=== PATIENT | female | born 1960 | race Caucasian/White ===

== ENCOUNTER 2023-01-19 06:08 | Outpatient (RCR) | payer OTHER, SELFPAY | END 2023-01-19 13:53 | disposition home or self-care (01) | LOC: CR 06:08 | DX: I25.10 Atherosclerotic heart disease of native coronary artery without angina pectoris (principal) | CPT/HCPCS: 93798 ==

== ENCOUNTER 2023-11-12 10:15 | Outpatient (OUT) | payer OTHER, SELFPAY ==
--- OUTSIDE RECORDS SUMMARY | 2023-11-12 10:18 | XMS_ITS | CCD ---
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 Role Phone MD Lorena Mcknight Primary Care Provider MD Jade Vidal Admit Provider [phone] DO Jaylene Aguilar Attending Provider [phone] Kadeem Harrell II Attending Unav LAINA Cobian Attending Unavailable LAINA Lynch Referring Unavailable Lorena Mcknight Primary Care Unavailab Lorena Marmolejo Unavailable Unavailable Unavailable Siri Tabares Consulting Unavailable Jaylene Aguilar Attending Unavailable Lorena Mcknight Primary Care Unavailable Jade Vidal Admitting Unavailable Ladan Khoury Consulting Unavailable Lee Herr Consulting Unavailable Kadeem Harrell Consulting Unavail able Angella Sorto Consulting Unavailable Sterling Hebert Consulting Unavailab Denita Valencia Consulting Unavailable Carmelina Hoffman Consulting Unavailable Medhat Winston Consulting Unavailab Nancy Castañeda Consulting Unavailable Umm Dozier Consulting Unavailable Martha Wagner Consulting Unavailable AISLINN, DR CARRILLO Primary Care Unavailable BRENDEN, DR MAICOL Gonzales Admitting Unavailable BRENDEN, DR MAICOL Gonzales Attending Unavailable BRENDEN, DR MAICOL Gonzales Consulting Unavailable MAYRA RODRIGUEZ Consulting Unavailable EVER SHELL Consulting Unavailable AISLINN, DR CARRILLO Primary Care Unavailable PILAR ., DR SANTA Navarro Admitting Unavailable PILAR ., DR SANTA Navarro Attending Unavailable PILAR ., DR SANTA Navraro Consulting Unavailable JEN, DR TED Rose Consulting Unavailable MARIE TANG Consulting Unavailable ZELDA TEE Consulting Unavailable ASIF Upton, DR RAFITA Sykes Attending Unavaila rosales MCKNIGHT, DR CARRILLO Primary Care Unavailable DENITA EDGAR Admitting Unavailable AISLINN, DR CARRILLO Consulting Unavailable DENITA EDGAR Consulting Unavailable AISLINN, DR CARRILLO Primary Care Unavailable PILAR ., DR SANTA Navarro Admitting Unavailable QUEZADA ., DR SANTA Navarro Attending Unavailable QUEZADA ., DR SANTA Navarro Consulting Unavailable HAY ., DR BRIONES Consulting Unavailable GELBART, JAYLENE Consulting Unavailable SISTER, SUSIE Consulting Unavailable AISLINN, DR CARRILLO Primary Care Unavailable PAY ., DR GRACIA Admitting Unavailable PAY ., DR GRACIA Attending Unavailable JEN, DR ETD Rose Consulting Unavailable PAY ., DR GRACIA Consulting Unavailable Lorena Mcknight MD Primary Care Provider KADEEM HARRELL Attending Unavailable AISLINN, LORENA LARIOS Primary Care Unavailab Lorena Marmolejo MD Primary Care Provider [phone] Medications Current Medications Medication Drug Class(es) Dates Sig (Normalized) Sig (Original) 8 hr acetaminophen 650 mg extended release oral tablet (3 sources) take 1 tablet by mouth every four hours as needed for pain acetaminophen (TYLENOL ARTHRITIS) 650 mg 8 hr tablet Take 1 tablet (650 mg total) by mouth every 4 (four) hours as needed for pain. 0 Active aspirin 81 mg delayed release oral tablet (4 sources) Platelet Aggregation Inhibitor, Nonsteroidal Anti-inflammatory Drug Start: 08-08-2022 take 81 mg by mouth once daily Aspirin Active 81 MG PO Daily 0 August 08, 2022 12:00am atorvastatin 20 mg oral tablet (8 sources) HMG-CoA Reductase Inhibitor Start: 08-08-2022 End: 07-16-2023 take 1 tablet by mouth once daily atorvastatin (LIPITOR) 20 mg tablet Take 1 tablet (20 mg total) by mouth nightly. 0 08/08/2022 Active hydroCHLOROthiazide 25 mg / losartan potassium 100 mg oral tablet (7 sources) Thiazide Diuretic, Angiotensin 2 Receptor Apoorva Start: 05-21-2023 take 1 tablet by mouth once in the morning losartan-hydroCHL OROthiazide (HYZAAR) 100-25 mg per tablet TAKE 1 TABLET BY MOUTH IN THE MORNING 90 tablet 1 05/21/2023 Active Start: 08-04-2022 take 1 tablet by leonor th once daily Losartan-Hydrochlorothiazide Active 1 TA B PO Daily August 04, 2022 12:00am hydrOXYzine hydrochloride 25 mg oral tablet (8 sources) Antihistamine Start: 08-03-2023 End: 10-24-2023 take 1-2 tablets by mouth every eight hours as needed for anxiety hydrOXYzine (ATARAX) 25 mg tablet TAKE 1-2 TABLET(25 MG) BY MOUTH EVERY 8 HOURS NEEDED FOR ANXIETY 90 tablet 0 10/24/2023 Active Start: 08-04-2022 take 25 mg by mouth every six hours Hydroxyzine Hcl Active 25 MG PO Every 6 hours August 04, 2022 12:00am take 1 tablet by leonor th four times daily hydrOXYzine HCL (Atarax) 25 mg tablet Take 1 tablet (25 mg) by mouth 4 times a day. 0 Active metoprolol tartrate 25 mg oral tablet (8 sources) beta-Adrenergic Apoorva Start: 09-17-2023 take 1 tablet by mouth in the morning, then take 1 tablet by mouth at bedtime metoprolol tartrate (LOPRESSOR) 25 mg tablet TAKE 1 TABLET BY MOUTH IN THE MORNING AND 1 BEFORE BEDTIME 180 tablet 3 09/17/2023 Active Start: 08-04-2022 End: 09-17-2023 take 1 tablet by mouth in the morning, then take 1 tablet by mouth at bedtime metoprolol tartrate (LOPRESSOR) 25 mg tablet Take 1 tablet (25 mg total) by mouth in the morning and 1 tablet (25 mg total) before bedtime. 180 tablet 0 05/14/2023 09/17/2023 Discontinued nitroglycerin 0.4 mg sublingual tablet (7 sources) Nitrate Vasodilator Start: 08-08-2022 nitroglyce rin (NITROSTAT) 0.4 MG SL tablet DISSOLVE 1 TABLET UNDER THE TONGUE EVERY 5 MINUTES NEEDED FOR CHEST PAIN DO NOT EXCEED 3 DOSES PER EPISODE 0 08/08/2022 Active Start: 08-08-2022 Nitroglycerin Active 0.4 MG SUBLINGUAL Q5M 25 August 08, 2022 12:00am do not exceed 3 doses per episode prasugrel 10 mg oral tablet (8 sources) P2Y12 Platelet Inhibitor Start: 08-08-2022 End: 08-21-2023 take 1 tablet by mouth once daily prasugreL (EFFIENT) 10 mg tablet TAKE 1 TABLET BY MOUTH DAILY 30 tablet 5 08/21/2023 Active Problems Active Problems Problem Classification Problem Date Documented Da te Episodic/Chronic Anxiety disorders (1 source) Generalized anxiety disorder; Translations: [GENERALIZED ANXIETY DISORDER] Onset: 08-10-2022 Chronic Coronary atherosclerosis and other heart disease (17 sources) Preinfarction syndrome; Translations: [Unstable angina] Onset: 08-04-2022 08-05-2022 Chronic Coronary atherosclerosis and other heart disease (3 sources) Stented coronary artery; Translations: [Coronary angioplasty status] Onset: 07-16-2023 08-07-2022 Episodic Disorders of lipid metabolism (9 sources) Hyperlipidemia; Translations: [Hyperlipidemia, unspecified] Onset: 08-04-2022 08-05-2022 Chronic Essential hypertension (10 sources) Essential hypertension; Translations: [Essential (primary) hypertension] Onset: 08-04-2022 08-05-2022 Chronic Hypertension with complications and secondary hypertension (5 sources) Hypertensive urgency; Translations: [Hypertensive emergency] Onset: 05-17-2022 Chronic Other circulatory disease (1 source) Orthostatic hypotension; Translations: [Orthostatic hypotension] 08-07-2022 Episodic Other circulatory disease (2 sources) Orthostatic hypotension; Translations: [Orthostatic hypotension] Onset: 08-04-2022 08-08-2022 Episodic Other circulatory disease (2 sources) Cardiac function test normal; Translations: [Normal cardiac ejection fraction] Episodic Other nutritional; endocrine; and metabolic disorders (2 sources) Obesity; Translations: [Obesity, unspecified] Chronic Other nutritional; endocrine; and metabolic disorders (2 sources) Obese class I; Translations: [Obesity, unspecified] Onset: 07-11-2023 07-16-2023 Chronic Other nutritional; endocrine; and metabolic disorders (2 sources) Obesity, unspecified; Translations: [Obesity, unspecified] Onset: 07-16-2023 Chronic Screening and history of mental health and substance abuse codes (3 sources) Ex-smoker; Translations: [Personal history of tobacco use] Onset: 08-10-2022 Episodic Unclassified (1 source) CONTACT W/AND (SUSP) EXPOS COVID-19; Translations: [CONTACT W/AND (SUSP) EXPOS COVID-19] Onset: 08-10-2022 Past or Other Problems Problem Classification Problem Date Documented Date Episodic/Chronic Conditions associated with dizziness or vertigo (3 sources) Dizziness and giddiness; Translations: [DIZZINESS AND GIDDINESS] Onset: 05-11-2022 Episodic Diabetes mellitus without complication (2 sources) Prediabetes; Translations: [Impaired glucose tolerance (oral)] Onset: 05-17-2022 Episodic Fluid and electrolyte disorders (1 source) Dehydration; Translations: [DEHYDRATION] Onset: 07-06-2022 Episodic Mood disorders (4 sources) Mood disorders Onset: 08-22-2022 Resolved: 06-18-2023 12-18-2022 Nonspecific chest pain (10 sources) Chest pain; Translations: [Chest pain, unspecified] Onset: 07-04-2022 08-04-2022 Episodic Other aftercare (1 source) Other residential (current) drug therapy; Translations: [OTH [facility] CURRENT DRUG THERAPY] Onset: 08-10-2022 Episodic Other aftercare (1 source) terminal manager (current) use of aspirin; 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] Onset: 08-10-2022 Episodic Other diseases of kidney and ureters (1 source) Disorder of kidney and ureter, unspecified; Translations: [DISORDER KIDNEY AND URETER UNS] Onset: 07-06-2022 Episodic Other hematologic conditions (1 source) Other specified abnormalities of plasma proteins; Translations: [OTH SPEC ABNORM PLASMA PROTEINS] Onset: 05-23-2022 Episodic Other screening for suspected conditions (not mental disorders or infectious disease) (4 sources) Cardiovascular stress test abnormal; Translations: [Abnormal result of other cardiovascular function study] Onset: 05-17-2022 08-05-2022 Episodic Results Test Name Value Interpretation Reference Range Facility Tobacco Screening.on 023 Fall risk assessment c) Not medically indicated [facility] [address] DO Work Phone: Tobacco use status [facility] b) No [facility] [address] DO Work Phone: Tobacco Screening. Yes [facility] [address] DO Work Phone: [phone] Tobacco Screening.on 023 Adult depression screening assessment Yes [facility] [address] DO Work Phone: [phone] Adult depression screening assessment No [facility] [address] DO Work Phone: [phone] Tobacco use status [facility] b) No M [facility] [address] DO Work Phone: Tobacco Screening. 0-Not at all [facility] [address] DO Work Phone: Tobacco Screening. 2-More than half the days -[facility] [address] DO Work Phone: Tobacco Screening. 1-Several days MP -[facility] [address] DO Work Phone: Tobacco Screening. Somewhat Difficult -[facility] [address] DO Work Phone: ECG 12 lead ECGon 08-08-2022 ECG 12 lead ECG [facility] [place] [address] [place] [address] Electrocardiograph Report Signed Patient: Tessie Santos MR#: [id number] 15 : 1960 Acct:[id number] Age/Sex: 62 / F ADM Date: 08/04/22 Loc: Room: [address] [place] [address] Type: DIS IN Attending Dr: Jaylene Aguilar DO Ordering Provider: Maynor Pelayo MD Date of Service: 08/08/22 ECG/ECG 12 lead ECG: Post Angioplasty Procedure in AM Copies to: Test Reason : Blood Pressure : / mmHG Vent. Rate : 075 BPM Atrial Rate : 075 BPM P-R Int : 184 ms QRS Dur : 084 ms QT Int : 408 ms P-R-T Axes : 026 011 090 degrees QTc Int : 455 ms Normal sinus rhythm Possible Inferior infarct (cited on or before 04-AUG-2022) Nonspecific ST and T wave abnormality Lateral leads Abnormal ECG When compared with ECG of 07-AUG-2022 18:36, (Unconfirmed) Significant changes have occurred Confirmed by REAGAN DONALD DO ([id number]) on 08/09/2022 6:25:45 PM Referred By: Electronically Signed By:REAGAN DONALD DO Transcribed By: MUS Signed By Reagan Donald DO 08/09 1825 Normal [facility] Troponin I High Sensitivityo n 08-08-2022 Troponin I High Sensitivity 75 pg/mL Off scale high 0-15 [facility] Comment on above: Result Comment: Resu lts called at 0713 on 08/08/22 PERFORMED BY: [place] [address] PATHOLOGIST APPLIED STATISTICIAN ZAC BACON M.D. Performed By: #### H S TROP #### [facility] [address] [place] [address] Troponin I.cardiac [Mass/vol ume] in Serum or Plasma by High sensitivity methodOrdered By: Maynor Pelayo on 08-08-2022 Troponin I.cardiac High sensitivity method [Mass/Vol] 75 pg/mL 0-15 [facility] Comment on above: Results calledat 071 3 on 08/08/22 Basic Metabolic Panelon - Anion gap [Moles/Vol] 9.4 mmol/L Normal 6.0-15.0 [facility] Comment on above: Performed By: #### H S TROP #### [facility] [address] [place] [address] Calcium [Mass/Vol] 8.8 mg/dL Normal 8.2-10.2 [facility] Comment on above: Performed By: #### H S TROP #### [facility] [address] [place] [address] [place] Chloride [Moles/Vol] 107 mmol/L Normal 95-114 [facility] Comment on above: Performed By: #### H S TROP #### [facility] [address] [place] [address] [place] CO2 [Moles/Vol] 23.4 mmol/L Normal 22.0-30.0 [facility] Comment on above: Performed By: #### H S TROP #### [facility] [address] [place] [address] [place] Creatinine [Mass/Vol] 0.90 mg/dL Normal 0.44-1.03 [facility] Comment on above: Performed By: #### H S TROP #### [facility] [address] [place] [address] [place] Creatinine Clr Calc Pharmacy 68.31 Normal [facility] Comment on above: Result Comment: PERF ORMED BY: [place] [address] PATHOLOGIST APPLIED STATISTICIAN ZAC BACON M.D. Performed By: #### H S TROP #### [address] Estimated GFR ( Alva > 60 Normal [facility] Comment on above: Result Comment: GFR estimated reference range: According to KDOQI guidelines, <60 ml/min/1.73m2 is sufficient to diagnose a patient with chronic kidney disease. Performed By: #### H S TROP #### [address] Estimated GFR (Non- Am > 60 Normal [facility] Comment on above: Performed By: #### H S TROP #### [address] Glucose [Mass/Vol] 114 mg/dL High 70-100 [facility] Comment on above: Result Comment: [place] om Glucose Reference Range is dependent on time and content of last meal. Glucose of more than 200 mg/dL in a nonstressed, ambulatory subject supports the diagnosis of Diabetes Mellitus. ADA recommended reference range Performed By: #### H S TROP #### [address] Potassium [Moles/Vol] 3.8 mmol/L Normal 3.5-5.1 [facility] Comment on above: Performed By: #### H S TROP #### [place] [address] [place] Sodium [Moles/Vol] 136 mmol/L Normal 136-146 [facility] Comment on above: Performed By: #### H S TROP #### [address] Urea nitrogen [Mass/Vol] 17 mg/dL Normal 9-23 [facility] Comment on above: Performed By: #### H S TROP #### [place] [address] [place] Creatinine and Glomerular fi ltration rate.predicted panel (S/P/Bld)Ordered By: Jade Vidal on 08-07-2022 Creatinine [Mass/Vol] 0.90 mg/dL 0.44-1.03 [facility] ECG 12 lead ECGon 08-07-2022 ECG 12 lead ECG [facility] [place] [address] [place], [place] [id number] Electrocardiograph Report Signed Patient: Tessie Santos MR#: [id number] 15 : 1960 Acct:[id number] Age/Sex: 62 / F ADM Date: 08/04/22 Loc: Room: [address] [place] [address] Type: DIS IN Attending Dr: Jaylene Aguilar DO Ordering Provider: Maynor Pelayo MD Date of Service: 08/07/22 ECG/ECG 12 lead ECG: Post Angioplasty Procedure Copies to: Test Reason : Blood Pressure : / mmHG Vent. Rate : 075 BPM Atrial Rate : 075 BPM P-R Int : 184 ms QRS Dur : 086 ms QT Int : 408 ms P-R-T Axes : 047 029 088 degrees QTc Int : 455 ms Poor data quality, interpretation may be adversely affected Normal sinus rhythm Low voltage QRS Inferior infarct (cited on or before 04-AUG-2022) Abnormal ECG When compared with ECG of 06-AUG-2022 17:05, (Unconfirmed) No significant change was found Confirmed by REAGAN DONALD DO ([id number]) on 08/09/2022 6:35:01 PM Referred By: PROTOCOL Electronically Signed By:REAGAN DONALD DO Transcribed By: MUS Signed By Reagan Donald DO 08/09 1835 [facility] Estimated glomerular filtrat ion rate (GFR) non- AmericanOrdered By: Jade Vidal on 08-07-2022 GFR/1.73 sq M.predicted among non-blacks MDRD (S/P/Bld) [Vol rate/Area] > 60 mL/Min [facility] No Panel InformationOrdered By: Jade Vidal on 08-07-2022 Estimated GFR () > 60 mL/Min [facility] Comment on above: GFR estimated refere nce range: According to KDOQI guidelines, <60 ml/min/1.73m2 is sufficient to diagnose a patient with chronic kidney disease. Pharmacy Creatinine Clearance (Chem 68.31 [facility] Serum or plasma anion gap de terminationOrdered By: Jade Vidal on 08-07-2022 Anion gap [Moles/Vol] 9.4 mmol/L 6.0-15.0 [facility] Serum or plasma calcium aylin urement (mass/volume)Ordered By: Jade Vidal on 08-07-2022 Calcium [Mass/Vol] 8.8 mg/dL 8.2-10.2 [facility] Serum or plasma chloride caro surement (moles/volume)Ordered By: Jade Vidal on 08-07-2022 Chloride [Moles/Vol] 107 mmol/L 95-114 [facility] Serum or plasma glucose aylin urement (mass/volume)Ordered By: Jade Vidal on 08-07-2022 Glucose [Mass/Vol] 114 mg/dL 70-100 [facility] Comment on above: ADA recommended refe rence rangeRandom Glucose Reference Range is dependent on time and content of last meal. Glucose of more than 200 mg/dL in a nonstressed, ambulatory subject supports the diagnosis of Diabetes Mellitus. Serum or plasma potassium me asurement (moles/volume)Ordered By: Jade Vidal on 08-07-2022 Potassium [Moles/Vol] 3.8 mmol/L 3.5-5.1 [facility] Serum or plasma sodium measu rement (moles/volume)Ordered By: Jade Vidal on 08-07-2022 Sodium [Moles/Vol] 136 mmol/L 136-146 [facility] Serum or plasma total carbon dioxide measurement (moles/volume)Ordered By: Jade Vidal on 08-07-2022 CO2 [Moles/Vol] 23.4 mmol/L 22.0-30.0 [facility] Serum or plasma urea nitroge n measurement (mass/volume)Ordered By: Jade Vidal on 08-07-2022 Urea nitrogen [Mass/Vol] 17 mg/dL 9-23 [facility] Basic Metabolic Panelon 12- Anion gap [Moles/Vol] 10.3 mmol/L Normal 6.0-15.0 [facility] Comment on above: Performed By: #### H S TROP #### [facility] [address] Calcium [Mass/Vol] 9.1 mg/dL Normal 8.2-10.2 [facility] Comment on above: Performed By: #### H S TROP #### [facility] [address] [place] [address] [place] Chloride [Moles/Vol] 102 mmol/L Normal 95-114 [facility] Comment on above: Performed By: #### H S TROP #### [address] CO2 [Moles/Vol] 28.8 mmol/L Normal 22.0-30.0 [facility] Comment on above: Performed By: #### H S TROP #### [place] [address] [place] Creatinine [Mass/Vol] 0.91 mg/dL Normal 0.44-1.03 [facility] Comment on above: Performed By: #### H S TROP #### [place] [address] [place] Creatinine Clr Calc Pharmacy 67.85 Normal [facility] Comment on above: Result Comment: PERF ORMED BY: [place] [address] PATHOLOGIST APPLIED STATISTICIAN ZAC BACON M.D. Performed By: #### H S TROP #### [place] [address] [place] Estimated GFR ( Alva > 60 Normal [facility] Comment on above: Result Comment: GFR estimated reference range: According to KDOQI guidelines, <60 ml/min/1.73m2 is sufficient to diagnose a patient with chronic kidney disease. Performed By: #### H S TROP #### [place] [address] [place] Estimated GFR (Non- Am > 60 Normal [facility] Comment on above: Performed By: #### H S TROP #### [facility] [address] Glucose [Mass/Vol] 95 mg/dL Normal 70-100 [facility] Comment on above: Result Comment: [place] Glucose Reference Range is dependent on time and content of last meal. Glucose of more than 200 mg/dL in a nonstressed, ambulatory subject supports the diagnosis of Diabetes Mellitus. ADA recommended reference range Performed By: #### H S TROP #### [facility] [address] Potassium [Moles/Vol] 4.1 mmol/L Normal 3.5-5.1 [facility] Comment on above: Performed By: #### H S TROP #### [facility] [address] Sodium [Moles/Vol] 137 mmol/L Normal 136-146 [facility] Comment on above: Performed By: #### H S TROP #### [facility] [address] Urea nitrogen [Mass/Vol] 21 mg/dL Normal 9-23 [facility] Comment on above: Performed By: #### H S TROP #### [facility] [address] [place] [address] [place] Basophils Auto (Bld) [#/Vol] Ordered By: Jade Vidal on 08-06-2022 Basophils (Bld) [#/Vol] 0.0 10*3/uL 0.0-0.2 [facility] Basophils/100 WBC Auto (Bld) Ordered By: Jade Vidal on 08-06-2022 Basophils/100 WBC (Bld) 0.5 % . [facility] COVID-19 Antigenon 2 COVID-19 Antigen Healthcare Worker?: N Reference Range: Negative Negative results, from patients with symptom onset beyond five days, should be treated as presumptive and confirmation with a molecular assay, if necessary, for patient management, may be performed. Negative results do not rule out COVID-19 and should not be used as the sole basis for treatment or patient management decisions, including infection control decisions. Negative results should be considered in the context of a patient's recent exposures, history and the presence of clinical signs and symptoms consistent with COVID-19. The Loretta SARS Antigen AUGUSTIN does not differentiate between SARS-CoV and SARS-CoV-2. This test was developed and its performance characteristic determined by [facility] and validated at [facility]. This test has not been FDA cleared or approved. This test has been authorized by FDA under an Emergency Use Authorization (EUA). This test has been validated in accordance with the FDA's Guidance Document (Policy for Diagnostics Testing in Laboratories Certified to Perform High Complexity Testing under CLIA prior to Emergency Use Authorization for Coronavirus Disease-2019 during the Public Health Emergency) issued on November 20, 2019. This test is only authorized for the duration of time the declaration that circumstances exist justifying the authorization of the emergency use of in vitro diagnostic tests for detection of SARS-CoV-2 virus and/or diagnosis of COVID-19 infection under section 564(b)(1) of the Act, 21 U.S.C. 360bbb-3(b)(1), unless the authorization is terminated or revoked sooner. SARS-CoV+SARS-CoV-2 (COVID-19) Ag [Presence] in Respiratory specimen by Rapid immunoassay Negative for SARS Antigen by AUGUSTIN PERFORMED BY: [place] [address] PATHOLOGIST APPLIED STATISTICIAN ZAC ABCON M.D. Normal [facility] Comment on above: Performed By: #### R TRINO Mendez #### [address] COVID-19 SOFIAOrdered By: St satnam Pelayo on 08-06-2022 SARS-CoV+SARS-CoV-2 (COVID-19) Ag IA.rapid Ql (Resp) Negative Negative [facility] Comment on above: This is a duplicate Loretta SARS Antigen (AUGUSTIN) result to be used for statistical tracking purpose only. Complete Blood Count Auto Di ffon 08-06-2022 Basophils (Bld) [#/Vol] 0.0 10*3/uL Normal 0.0-0.2 [facility] Comment on above: Result Comment: PERF ORMED BY: [place] [address] PATHOLOGIST APPLIED STATISTICIAN ZAC BACON M.D. Performed By: #### H S TROP #### [address] Basophils/100 WBC (Bld) 0.5 % Normal . [facility] Comment on above: Performed By: #### H S TROP #### [address] Eosinophils (Bld) [#/Vol] 0.1 10*3/uL Normal 0.0-0.45 [facility] Comment on above: Performed By: #### H S TROP #### [address] Eosinophils/100 WBC (Bld) 1.4 % Normal . [facility] Comment on above: Performed By: #### H S TROP #### [address] Erythrocyte distribution width (RBC) [Ratio] 13.6 % Normal 11.9-15.3 [facility] Comment on above: Performed By: #### H S TROP #### [address] Hematocrit (Bld) [Volume fraction] 40.4 % Normal 34.0-46.4 [facility] [facility] Comment on above: Performed By: #### H S TROP #### [address] Hemoglobin (Bld) [Mass/Vol] 13.3 g/dL Normal 11.8-15.4 [facility] Comment on above: Performed By: #### H S TROP #### [address] Lymphocytes (Bld) [#/Vol] 3.1 10*3/uL Normal 1.00-4.8 [facility] Comment on above: Performed By: #### H S TROP #### [place] [address] [place] Lymphocytes/100 WBC (Bld) 29.8 % Normal . [facility] Comment on above: Performed By: #### H S TROP #### [facility] [address] MCH (RBC) [Entitic mass] 28.3 pg Normal 24.7-34.3 [facility] Comment on above: Performed By: #### H S TROP #### [facility] [address] MCV (RBC) [Entitic vol] 85.8 fL Normal 80-100 [facility] Comment on above: Performed By: #### H S TROP #### [address] Mean Corpuscular HGB Conc 33.0 g/dL Normal 32.0-35.0 [facility] Comment on above: Performed By: #### H S TROP #### [address] Monocytes (Bld) [#/Vol] 0.7 10*3/uL Normal 0.0-0.8 [facility] Comment on above: Performed By: #### H S TROP #### [address] Monocytes/100 WBC (Bld) 7.1 % Normal . [facility] Comment on above: Performed By: #### H S TROP #### [facility] [address] [place] [address] Neutrophils (Bld) [#/Vol] 6.3 10*3/uL Normal 1.8-7.7 [facility] Comment on above: Performed By: #### H S TROP #### [place] [address] [place] Neutrophils/100 WBC (Bld) 61.2 % Normal . [facility] Comment on above: Performed By: #### H S TROP #### [address] NRBC% 0.1 /100{WBC} Normal 0-0.5 [facility] Comment on above: Performed By: #### H S TROP #### [facility] [address] Platelet mean volume (Bld) [Entitic vol] 9.0 fL Normal 6.3-10.7 [facility] Comment on above: Performed By: #### H S TROP #### [facility] [address] Platelets (Bld) [#/Vol] 314 10*3/uL Normal 150-450 [facility] Comment on above: Performed By: #### H S TROP #### [facility] [address] RBC (Bld) [#/Vol] 4.71 10*6/uL Normal 3.60-5.00 [facility] Comment on above: Performed By: #### H S TROP #### [facility] [address] WBC (Bld) [#/Vol] 10.3 10*3/uL Normal 3.8-11.6 [facility] Comment on above: Performed By: #### H S TROP #### [address] ECG 12 lead ECGon 08-06-2022 ECG 12 lead ECG [facility] [place] [address] [place] [address] Electrocardiograph Report Signed Patient: Tessie Santos MR#: [id number] 15 : 1960 Acct:[id number] Age/Sex: 62 / F ADM Date: 08/04/22 Loc: Room: [address] [place] [address] Type: DIS IN Attending Dr: Jaylene Aguilar DO Ordering Provider: Jade Vidal MD Date of Service: 08/06/22 ECG/ECG 12 lead ECG: chest pain Copies to: Test Reason : Blood Pressure : / mmHG Vent. Rate : 085 BPM Atrial Rate : 085 BPM P-R Int : 168 ms QRS Dur : 084 ms QT Int : 390 ms P-R-T Axes : 008 000 068 degrees QTc Int : 464 ms Normal sinus rhythm Inferior infarct (cited on or before 04-AUG-2022) Nonspecific ST depression Lateral leads may represent ischemia Abnormal ECG When compared with ECG of 05-AUG-2022 06:49, No significant change was found Confirmed by REAGAN DONALD DO ([id number]) on 08/09/2022 6:59:14 PM Referred By: Electronically Signed By:REAGAN DONALD DO Transcribed By: MUS Signed By Reagan Donald DO 08/09 1859 Normal [facility] Eosinophils Auto (Bld) [#/Vo l]Ordered By: Jade Vidal on 08-06-2022 Eosinophils (Bld) [#/Vol] 0.1 10*3/uL 0.0-0.45 [facility] Eosinophils/100 WBC Auto (Bl d)Ordered By: Jade Vidal on 08-06-2022 Eosinophils/100 WBC (Bld) 1.4 % . [facility] Erythrocyte distribution wid th Auto (RBC) [Ratio]Ordered By: Jade Vidal on 08-06-2022 Erythrocyte distribution width (RBC) [Ratio] 13.6 % 11.9-15.3 [facility] Hematocrit Auto (Bld) [Volum e fraction]Ordered By: Jade Vidal on 08-06-2022 Hematocrit (Bld) [Volume fraction] 40.4 % 34.0-46.4 [facility] Hemoglobin [Mass/volume] in BloodOrdered By: Jade Vidal on 08-06-2022 Hemoglobin (Bld) [Mass/Vol] 13.3 g/dL 11.8-15.4 [facility] Leukocytes [#/volume] correc axel for nucleated erythrocytes in Blood by Automated counOrdered By: Jade Vidal on 08-06-2022 WBC corrected for nucl RBC Auto (Bld) [#/Vol] 10.3 10*3/uL 3.8-11.6 [facility] Lymphocytes Auto (Bld) [#/Vo l]Ordered By: Jade Vidal on 08-06-2022 Lymphocytes (Bld) [#/Vol] 3.1 10*3/uL 1.00-4.8 [facility] Lymphocytes/100 WBC Auto (Bl d)Ordered By: Jade Vidal on 08-06-2022 Lymphocytes/100 WBC (Bld) 29.8 % . [facility] MCH Auto (RBC) [Entitic mass ]Ordered By: Jade Vidal on 08-06-2022 MCH (RBC) [Entitic mass] 28.3 pg 24.7-34.3 [facility] MCHC Auto (RBC) [Mass/Vol]Or dered By: Jade Vidal on 08-06-2022 MCHC (RBC) [Mass/Vol] 33.0 g/dL 32.0-35.0 [facility] MCV Auto (RBC) [Entitic vol] Ordered By: Jade Vidal on 08-06-2022 MCV (RBC) [Entitic vol] 85.8 fL 80-100 [facility] Monocytes Auto (Bld) [#/Vol] Ordered By: Jade Vidal on 08-06-2022 Monocytes (Bld) [#/Vol] 0.7 10*3/uL 0.0-0.8 [facility] Monocytes/100 WBC Auto (Bld) Ordered By: Jade Vidal on 08-06-2022 Monocytes/100 WBC (Bld) 7.1 % . [facility] Neutrophils Auto (Bld) [#/Vo l]Ordered By: Jade Vidal on 08-06-2022 Neutrophils (Bld) [#/Vol] 6.3 10*3/uL 1.8-7.7 [facility] Neutrophils/100 WBC Auto (Bl d)Ordered By: Jade Vidal on 08-06-2022 Neutrophils/100 WBC (Bld) 61.2 % . [facility] No Panel InformationOrdered By: Maynor Pelayo on 08-06-2022 SARS Antigen (LFIA) [facility] Nucleated erythrocytes [Pres ence] in Blood by Automated countOrdered By: Jade Vidal on 08-06-2022 Nucleated RBC Auto Ql (Bld) 0.1 /100{WBC} 0-0.5 [facility] Platelet mean volume Auto (B ld) [Entitic vol]Ordered By: Jade Vidal on 08-06-2022 Platelet mean volume (Bld) [Entitic vol] 9.0 fL 6.3-10.7 [facility] Platelets Auto (Bld) [#/Vol] Ordered By: Jade Vidal on 08-06-2022 Platelets (Bld) [#/Vol] 314 10*3/uL 150-450 [facility] RBC Auto (Bld) [#/Vol]Ordere d By: Jade Vidal on 08-06-2022 RBC (Bld) [#/Vol] 4.71 10*6/uL 3.60-5.00 [facility] Loretta Ag Negativeon 08-06-20 22 Loretta Ag Negative Negative Normal Negative [facility] Comment on above: Result Comment: This is a duplicate Loretta SARS Antigen (AUGUSTIN) result to be used for statistical tracking purpose only. PERFORMED BY: [place] [phone] PATHOLOGIST APPLIED STATISTICIAN ZAC BACON M.D. Performed By: #### R EDEVELIA K #### [facility] [address] [place] [address] Troponin I High Sensitivityo n 08-06-2022 Troponin I High Sensitivity 26 pg/mL High 0-15 [facility] Comment on above: Result Comment: PERF ORMED BY: [place] [phone] PATHOLOGIST APPLIED STATISTICIAN ZAC BACON M.D. Performed By: #### H S TROP #### [facility] [address] [place] [address] [place] WBC Auto (Bld) [#/Vol]Ordere d By: Jade Vidal on 08-06-2022 WBC (Bld) [#/Vol] 10.3 10*3/uL 3.8-11.6 [facility] Basic Metabolic Panelon 07-20 Anion gap [Moles/Vol] Not performed Normal 6.0-15.0 [facility] Comment on above: Performed By: #### H S TROP #### [facility] [address] [place] [address] [place] Calcium [Mass/Vol] 8.9 mg/dL Normal 8.2-10.2 [facility] Comment on above: Performed By: #### H S TROP #### [facility] [address] [place] [address] [place] Chloride [Moles/Vol] 103 mmol/L Normal 95-114 [facility] Comment on above: Performed By: #### H S TROP #### [facility] [address] [place] [address] [place] CO2 [Moles/Vol] 27.6 mmol/L Normal 22.0-30.0 [facility] Comment on above: Performed By: #### H S TROP #### [facility] [address] Creatinine [Mass/Vol] 0.90 mg/dL Normal 0.44-1.03 [facility] Comment on above: Performed By: #### H S TROP #### [facility] [address] [place] [address] [place] Creatinine Clr Calc Pharmacy 68.69 [facility] Comment on above: Performed By: #### H S TROP #### [facility] [address] Estimated GFR ( Alva > 60 [facility] Comment on above: Result Comment: GFR estimated reference range: According to KDOQI guidelines, <60 ml/min/1.73m2 is sufficient to diagnose a patient with chronic kidney disease. Performed By: #### H S TROP #### [facility] [address] [place] [address] [place] Estimated GFR (Non- Am > 60 [facility] Comment on above: Performed By: #### H S TROP #### [facility] [address] [place] [id number] [place] Glucose [Mass/Vol] 90 mg/dL Normal 70-100 [facility] Comment on above: Result Comment: [place] Glucose Reference Range is dependent on time and content of last meal. Glucose of more than 200 mg/dL in a nonstressed, ambulatory subject supports the diagnosis of Diabetes Mellitus. ADA recommended reference range Performed By: #### H S TROP #### [facility] [address] Potassium Normal 3.5-5.1 [facility] Comment on above: Result Comment: Spec imen hemolyzed, redraw requested Performed By: #### H S TROP #### [facility] [address] [place] [address] [place] Sodium [Moles/Vol] 138 mmol/L Normal 136-146 [facility] Comment on above: Performed By: #### H S TROP #### [facility] [address] Urea nitrogen [Mass/Vol] 22 mg/dL Normal 9-23 [facility] Comment on above: Performed By: #### H S TROP #### [facility] [address] Bilirubin Test strip Ql (U)O rdered By: Jade Vidal on 08-05-2022 Bilirubin Ql (U) Negative Negative [facility] Cholesterol [Mass/volume] in Serum or PlasmaOrdered By: Jade Vidal on 08-05-2022 Cholesterol [Mass/Vol] 170 mg/dL 140-200 [facility] Comment on above: Chol less than 200 m g/dl low riskChol 201-239 mg/dl borderline riskChol 240 mg/dl and greater high risk Cholesterol in LDL Calc [Mas s/Vol]Ordered By: Jade Vidal on 08-05-2022 Cholesterol in LDL [Mass/Vol] 99 mg/dL 0-100 [facility] Comment on above: LDL ATP III CLASSIFI CATIONLDL less than 100 mg/dL OptimalLDL 100-129 mg/dL Near or above optimalLDL 130-159 mg/dL Borderline highLDL 160-189 mg/dL HighLDL greater than 189 mg/dL Very high Cholesterol in VLDL Calc [Ma ss/Vol]Ordered By: Jade Vidal on 08-05-2022 Cholesterol in VLDL [Mass/Vol] 26 mg/dL [facility] Color Auto (U)Ordered By: Santos Vidal on 08-05-2022 Color (U) Yellow Yellow [facility] Complete Blood Count Auto Di ffon 08-05-2022 Basophils (Bld) [#/Vol] 0.1 10*3/uL Normal 0.0-0.2 [facility] Comment on above: Result Comment: PERF ORMED BY: [place] [address] PATHOLOGIST APPLIED STATISTICIAN ZAC BACON M.D. Performed By: #### Rose JAMESON K #### [address] Basophils/100 WBC (Bld) 0.4 % Normal . [facility] Comment on above: Performed By: #### Rose JAMESON K #### [address] Eosinophils (Bld) [#/Vol] 0.0 10*3/uL Normal 0.0-0.45 [facility] Comment on above: Performed By: #### Rose JAMESON K #### [facility] [address] [place] [address] [place] Eosinophils/100 WBC (Bld) 0.2 % Normal . [facility] Comment on above: Performed By: #### Rose JAMESON K #### [address] Erythrocyte distribution width (RBC) [Ratio] 13.7 % Normal 11.9-15.3 [facility] Comment on above: Performed By: #### Rose JAMESON K #### [facility] [address] [place] [address] [place] Hematocrit (Bld) [Volume fraction] 38.5 % Normal 34.0-46.4 [facility] Comment on above: Performed By: #### Rose JAMESON K #### [facility] [address] [place] [address] Hemoglobin (Bld) [Mass/Vol] 12.9 g/dL Normal 11.8-15.4 [facility] Comment on above: Performed By: #### Rose Mendez #### [facility] [address] [place] [address] [place] Lymphocytes (Bld) [#/Vol] 4.0 10*3/uL Normal 1.00-4.8 [facility] Comment on above: Performed By: #### Rose JAMESON K #### [address] Lymphocytes/100 WBC (Bld) 25.6 % Normal . [facility] Comment on above: Performed By: #### Rose JAMESON K #### [address] MCH (RBC) [Entitic mass] 28.4 pg Normal 24.7-34.3 [facility] Comment on above: Performed By: #### Rose Mendez #### [address] MCV (RBC) [Entitic vol] 85.1 fL Normal 80-100 [facility] Comment on above: Performed By: #### Rose Mendez #### [address] Mean Corpuscular HGB Conc 33.4 g/dL Normal 32.0-35.0 [facility] Comment on above: Performed By: #### Rose Mendez #### [address] Monocytes (Bld) [#/Vol] 0.8 10*3/uL Normal 0.0-0.8 [facility] Comment on above: Performed By: #### Rose Mendez #### [place] [address] [place] Monocytes/100 WBC (Bld) 5.1 % Normal . [facility] Comment on above: Performed By: #### Rose JAMESON K #### [address] Neutrophils (Bld) [#/Vol] 10.6 10*3/uL High 1.8-7.7 [facility] Comment on above: Performed By: #### Rose Mendez #### [address] Neutrophils/100 WBC (Bld) 68.7 % Normal . [facility] Comment on above: Performed By: #### Rose Mendez #### [address] NRBC% 0.1 /100{WBC} Normal 0-0.5 [facility] Comment on above: Performed By: #### Rose Mendez #### [address] Platelet mean volume (Bld) [Entitic vol] 9.4 fL Normal 6.3-10.7 [facility] Comment on above: Performed By: #### Rose Mendez #### [address] Platelets (Bld) [#/Vol] 324 10*3/uL Normal 150-450 [facility] Comment on above: Performed By: #### Rose Mendez #### [place] [address] [place] RBC (Bld) [#/Vol] 4.53 10*6/uL Normal 3.60-5.00 [facility] Comment on above: Performed By: #### Rose Mendez #### [address] WBC (Bld) [#/Vol] 15.4 10*3/uL High 3.8-11.6 [facility] Comment on above: Performed By: #### Rose Mendez #### [address] ECG 12 lead ECGon 08-05-2022 ECG 12 lead ECG [facility] Main [place] [address] [place] [address] Electrocardiograph Report Signed Patient: Tessie Santos MR#: [id number] 15 : 1960 Acct:[id number] Age/Sex: 62 / F ADM Date: 08/04/22 Loc: 4 Room: 5I4033-9 Type: DIS IN Attending Dr: Jaylene Aguilar DO Ordering Provider: Jade Vidal MD Date of Service: 08/05/22 ECG/ECG 12 lead ECG: abn Copies to: Test Reason : Blood Pressure : / mmHG Vent. Rate : 068 BPM Atrial Rate : 068 BPM P-R Int : 188 ms QRS Dur : 084 ms QT Int : 418 ms P-R-T Axes : 023 -05 110 degrees QTc Int : 444 ms Normal sinus rhythm Inferior infarct (cited on or before 04-AUG-2022) Anterior infarct (cited on or before 04-AUG-2022) T wave abnormality, consider lateral ischemia Abnormal ECG When compared with ECG of 04-AUG-2022 17:42, (Unconfirmed) No significant change was found Confirmed by CARTER PENN DO ([id number]) on 08/05/2022 12:49:01 PM Referred By: Electronically Signed By:CARTER PENN DO Transcribed By: MUS Signed By Carter Penn DO 08/05 1249 [facility] ECH echo transthoracicon ECH echo transthoracic [facility] Main [place] [address] [place] [address] Echocardiogram Signed Patient: Tessie Santos MR#: [id number] 15 : 1960 Acct:[id number] Age/Sex: 62 / F ADM Date: 08/04/22 Loc: Room: [address] [place] [address] Type: DIS IN Attending Dr: Jaylene Aguilar DO Ordering Provider: Jade Vidal MD Date of Service: 08/04/22 ECH/ECH echo transthoracic: cp Copies to: MD Kadeem Parker MD BSA: 1.9 m2 BP: 135/71 mmHg HR: 67 Reason For Study: cp History: Anxiety, HTN, Former Smoker Interpretation Summary Mild to moderate concentric left ventricular hypertrophy. Ejection Fraction = 55-60%. A variety of Doppler measurements indicate normal left ventricular diastolic function. There is trace mitral regurgitation. There is trace tricuspid regurgitation. Procedure/Quality: A two-dimensional transthoracic echocardiogram with color flow and Doppler was performed. The study was technically fair in quality. Left Ventricle: The left ventricular size is normal. Mild to moderate concentric left ventricular hypertrophy. Ejection Fraction = 55-60%. A variety of Doppler measurements indicate normal left ventricular diastolic function. No left ventricular thrombus or mass is seen. Left Atrium: The left atrium appears normal in size. The atrial septum appears normal. Right Atrium: The right atrium appears normal in size. Right Ventricle: The right ventricular size, thickness and function are normal. Aortic Valve: The aortic valve is normal in structure and function. Mitral Valve: The mitral valve leaflets appear normal. There is no evidence of stenosis, fluttering, or prolapse. There is trace mitral regurgitation. Tricuspid Valve: The tricuspid valve is normal. There is trace tricuspid regurgitation. Pulmonic Valve: The pulmonic valve is not well visualized. Arteries: The aortic root is normal size. The aortic arch was visualized and no abnormalities were seen. Pericardium/Pleura: Moderate pericardial effusion (1-2 cm). There is no pleural effusion. IVC/Hepatic Viens: The inferior vena cava is normal in size, with a normal collapsibility index. Measurements with Normals IVSd: 1.4 cm (0.7-1.1 cm)LVIDd: 4.3 cm (3.7-5.4 cm) LVPWd: 1.2 cm (0.7-1.1 cm)LVIDs: 2.6 cm (2.3-3.6 cm) LA dimension: 3.5 cm (2.3-4.0 cm)Ao root diam: 3.0 cm(2.0-3.6 cm) asc Aorta Diam: 3.5 cm(2.1-3.4cm) Doppler with Normals RVSP(TR): 21.4 mmHg (18-35mmHg) MV E max igor: 61.3 cm/sec(0.8-1.3m/s) MV A max igor: 86.5 cm/sec(0.0-0.0m/s) MV E/A: 0.71 (<1.5) MMode/2D Measurements Calculations RVDd: 2.8 cm FS: 39.0 % Ao root area: LVOT diam: TAPSE: 1.9 cm EDV(Teich): 80.9 ml 7.2 cm2 1.9 cm RV S Igor: ESV(Teich): 24.5 ml LVOT area: 14.9 cm/sec EF(Teich): 69.7 % 2.8 cm2 __ LAV(MOD-sp4): 55.2 ml LA A4 area: 19.0 cm2 LA length (vol): 5.1 cm Doppler Measurements Calculations MV dec time: 0.25 sec E/E' lat: MV dec slope: TV max P.2 246.8 cm/sec2 16.0 mmHg E/E' med: 12.2 __ TR max igor: 202.2 cm/sec TR max P.4 mmHg RAP systole: 5.0 mmHg Transcribed By: SCV Performed At: 08/05/22 1037 Signed By: Kadeem Harrell MD 08/05/22 1416 [facility] Ketones Auto test strip (U) [Mass/Vol]Ordered By: Jade Vidal on 08-05-2022 Ketones (U) [Mass/Vol] Negative Negative [facility] - Chemistry and C hemistry - challengeOrdered By: Jade Vidal on 08-05-2022 Magnesium [Mass/Vol] 2.0 mg/dL 1.6-2.6 [facility] Lipid Panelon 08-05-2022 Cholesterol [Mass/Vol] 170 mg/dL Normal 140-200 [facility] Comment on above: Result Comment: Chol less than 200 mg/dl low risk Chol 201-239 mg/dl borderline risk Chol 240 mg/dl and greater high risk Performed By: #### H S TROP #### [address] Cholesterol in HDL [Mass/Vol] 44 mg/dL Normal 35-85 [facility] Comment on above: Result Comment: HDL CHOL ATP-III CLASSIFICATION Cardiovascular Risk HDL > or equal to 60 mg/dL LOW HDL < 40 mg/dL HIGH Performed By: #### H S TROP #### [address] Cholesterol.total/Choles terol in HDL [Mass ratio] 3.9 {ratio} Normal <5.0 [facility] Comment on above: Result Comment: PERF ORMED BY: [place] [address] PATHOLOGIST APPLIED STATISTICIAN ZAC BACON M.D. Performed By: #### H S TROP #### [facility] [address] [place] [address] LDL Cholesterol,Calculated 99 mg/dL Normal 0-100 [facility] Comment on above: Result Comment: LDL ATP III CLASSIFICATION LDL less than 100 mg/dL Optimal LDL 100-129 mg/dL Near or above optimal LDL 130-159 mg/dL Borderline high LDL 160-189 mg/dL High LDL greater than 189 mg/dL Very high Performed By: #### H S TROP #### [facility] [address] [place] [address] Triglyceride w/Reflex 133 mg/dL Normal 35-149 [facility] Comment on above: Result Comment: TRIG ATP III CLASSIFICATION TRIG less than 150 mg/dL Normal TRIG 150-199 mg/dL Borderline high TRIG 200-500 mg/dL High TRIG greater than 500 mg/dL Very high Standard traceable to the Center for Disease Conrtrol and Prevention (CDC) test method. Performed By: #### H S TROP #### [facility] [address] [place] [address] VLDL CHOLESTEROL 26 mg/dL Normal [facility] Comment on above: Performed By: #### H S TROP #### [address] Magnesiumon 08-05-2022 Magnesium [Mass/Vol] 2.0 mg/dL Normal 1.6-2.6 [facility] Comment on above: Order Comment: Comme nt add Result Comment: PERF ORMED BY: [place] [address] PATHOLOGIST APPLIED STATISTICIAN ZAC BACON M.D. Performed By: #### M G #### [facility] [address] [place] [address] Nitrite Test strip Ql (U)Ord ered By: Jade Vidal on 08-05-2022 Nitrite Ql (U) Negative Negative [facility] Protein Auto test strip (U) [Mass/Vol]Ordered By: Jade Vidal on 08-05-2022 Protein (U) [Mass/Vol] Negative Negative [facility] Redraw Potassiumon 2 Potassium [Moles/Vol] 3.5 mmol/L Normal 3.5-5.1 [facility] Comment on above: Order Comment: 2ND D RAW HEMOLYZED AGAIN Result Comment: PERF ORMED BY: [place] [address] PATHOLOGIST APPLIED STATISTICIAN ZAC BACON M.D. Performed By: #### R EDW K #### [facility] [address] [place] [address] Serum or plasma high density lipoprotein (HDL) cholesterol measurementOrdered By: Jade Vidal on 08-05-2022 Cholesterol in HDL [Mass/Vol] 44 mg/dL 35-85 [facility] Comment on above: HDL CHOL ATP-III CLA SSIFICATION Cardiovascular RiskHDL > or equal to 60 mg/dL LOWHDL < 40 mg/dL HIGH Serum or plasma total choles terol/high density lipoprotein (HDL) cholesterol mass ratOrdered By: Jade Vidal on 08-05-2022 Cholesterol.total/Choles terol in HDL [Mass ratio] 3.9 {ratio} <5.0 [facility] Specific gravity Auto test s trip (U) [Rel density]Ordered By: Jade Vidal on 08-05-2022 Specific gravity (U) [Rel density] 1.013 1.001-1.030 [facility] Triglyceride [Mass/volume] i n Serum or PlasmaOrdered By: Jade Vidal on 08-05-2022 Triglyceride [Mass/Vol] 133 mg/dL 35-149 [facility] Comment on above: TRIG ATP III CLASSIF ICATIONTRIG less than 150 mg/dL NormalTRIG 150-199 mg/dL Borderline highTRIG 200-500 mg/dL High TRIG greater than 500 mg/dL Very highStandard traceable to the Center for Disease Conrtrol and Prevention (CDC) test method. Troponin I High Sensitivityo n 08-05-2022 Troponin I High Sensitivity 40 pg/mL High 0-15 [facility] Comment on above: Result Comment: PERF ORMED BY: [place] [address] PATHOLOGIST APPLIED STATISTICIAN ZAC BACON M.D. Performed By: #### H S TROP #### [address] Troponin I High Sensitivity 44 pg/mL High 0-15 [facility] Comment on above: Result Comment: PERF ORMED BY: [place] [address] PATHOLOGIST APPLIED STATISTICIAN ZAC BACON M.D. Performed By: #### R EDRAW K #### [facility] [address] [place] [address] US carotid doppler BIon 07-20 US carotid doppler BI [facility] Main [place] [address] [place] [address] Ultrasound Report Signed Patient: Tessie Santos MR#: [id number] 15 : 1960 Acct:[id number] Age/Sex: 62 / F ADM Date: 08/04/22 Loc: Room: [address] [place] [address] Type: ADM IN Attending Dr: Jade Vidal MD Ordering Provider: Jade Vidal MD Date of Service: 08/04/22 US/US carotid doppler BI: dizzy Copies to: Jade Vidal MD CAROTID DUPLEX INDICATION: Vertigo PROCEDURE: Color-flow duplex scanning is used to interrogate the extracranial carotid arterial system, as well as both vertebral arteries. Both carotid bifurcations show some smooth homogeneous plaque formation. The proximal right internal carotid artery shows a highest peak systolic velocity of 174 cm/s with an end-diastolic velocity of 55.2 cm/s . The mid internal carotid artery measures 171 cm/s peak systolic with an end diastolic velocity of 50.5 cm/s . The distal segment measures 82.3 cm/s peak systolic with an end diastolic velocity of 34.5 cm/s . The velocities of the right common carotid artery are 64 cm/s peak systolic and 18.6 cm/s end-diastolic and 73.8 cm/s peak systolic and 21.5 cm/s end diastolic distally. The peak systolic velocity ratio of the internal to the common carotid artery is 2.36 . The external carotid artery measures 233 cm/s peak systolic. The right vertebral artery is patent at 24.2 cm/s peak systolic with antegrade flow. The proximal left internal carotid artery shows a highest peak systolic velocity of 85.1 cm/s with an end-diastolic velocity of 25.2 cm/s . The mid internal carotid artery measures 111 cm/s peak systolic with an end diastolic velocity of 32.2 cm/s . The distal segment measures 70.2 cm/s peak systolic with an end diastolic velocity of 26.7 cm/s . The velocities of the left common carotid artery are 67.5 cm/s peak systolic and 20.9 cm/s end-diastolic and 103 cm/s peak systolic and 20.9 cm/s end diastolic distally. The peak systolic velocity ratio of the internal to the common carotid artery is 1.08 . The external carotid artery measures 100 cm/s peak systolic. The left vertebral artery is patent at 60.4 cm/s peak systolic with antegrade flow. US/US carotid doppler BI IMPRESSION: Mild plaque formation is noted bilaterally. The right internal carotid artery demonstrates 50-69% stenosis. Less than 50% stenosis is seen in the left internal carotid artery. Both vertebral arteries are patent with antegrade flow although the waveform in the right vertebral artery is blunted. Impression dictated by: Carter Keane M.D.08/05/2022 10:23 AM Dictation Location: RAD-DOC-04 Tech: Shruthijoseph Goodman Transcribed By: ZANE 08/05/22 1023 Dictated By: Carter Keane MD 08/05/22 1020 Signed By: 08/05/22 1023 Normal [facility] Urinalysison 08-05-2022 Appearance (U) Clear Normal Clear [facility] Comment on above: Order Comment: Name Collection Type:: Clean-Voided Midstream Performed By: #### H S TROP #### [facility] [address] [place], [place] [id number] [place] Bilirubin,Urine Negative Normal Negative [facility] Comment on above: Order Comment: Name Collection Type:: Clean-Voided Midstream Performed By: #### H S TROP #### [facility] [address] [place], [place] [id number] [place] Color (U) Yellow Normal Yellow [facility] Comment on above: Order Comment: Name Collection Type:: Clean-Voided Midstream Performed By: #### H S TROP #### [facility] [address] [place] [address] [place] Glucose Ql (U) Normal Normal Normal [facility] Comment on above: Order Comment: Name Collection Type:: Clean-Voided Midstream Performed By: #### H S TROP #### [facility] [address] [place] [address] [place] Ketones Ql (U) Negative Normal Negative [facility] Comment on above: Order Comment: Name Collection Type:: Clean-Voided Midstream Performed By: #### H S TROP #### [facility] [address] [place] [address] [place] Leukocyte esterase Test strip Ql (U) Negative Normal Negative [facility] Comment on above: Order Comment: Name Collection Type:: Clean-Voided Midstream Performed By: #### H S TROP #### [facility] [address] [place], [place] [id number] [place] Nitrite,Urine Negative Normal Negative [facility] Comment on above: Order Comment: Name Collection Type:: Clean-Voided Midstream Performed By: #### H S TROP #### [facility] [address] [place], [place] [id number] [place] Occult Blood,Urine Negative Normal Negative [facility] Comment on above: Order Comment: Name Collection Type:: Clean-Voided Midstream Result Comment: PERF ORMED BY: [place] [id number] PATHOLOGIST APPLIED STATISTICIAN ZAC BACON M.D. Performed By: #### H S TROP #### [address] pH (U) 7.5 [pH] Normal 5.0-9.0 [facility] Comment on above: Order Comment: Name Collection Type:: Clean-Voided Midstream Performed By: #### H S TROP #### [address] Protein,Urine Negative Normal Negative [facility] Comment on above: Order Comment: Name Collection Type:: Clean-Voided Midstream Performed By: #### H S TROP #### [address] Specificy [place],Urine 1.013 Normal 1.001-1.030 [facility] Comment on above: Order Comment: Name Collection Type:: Clean-Voided Midstream Performed By: #### H S TROP #### [address] Urobilinogen,Urine Normal Normal Normal [facility] Comment on above: Order Comment: Name Collection Type:: Clean-Voided Midstream Performed By: #### H S TROP #### [address] Urine clarity by refractomet ry automatedOrdered By: Jade Vidal on 08-05-2022 Clarity Refractometry automated (U) Clear Clear [facility] Urine glucose measurement by automated test strip (mass/volume)Ordered By: Jade Vidal on 08-05-2022 Glucose Auto test strip (U) [Mass/Vol] Normal mg/dL Normal [facility] Urine hemoglobin detection b y automated test stripOrdered By: Jade Vidal on 08-05-2022 Hemoglobin Auto test strip Ql (U) Negative Negative [facility] Urine leukocyte esterase det ection by automated test stripOrdered By: Jade Vidal on 08-05-2022 Leukocyte esterase Auto test strip Ql (U) Negative Negative [facility] Urobilinogen Auto test strip (U) [Mass/Vol]Ordered By: Jade Vidal on 08-05-2022 Urobilinogen (U) [Mass/Vol] Normal mg/dL Normal [facility] pH Auto test strip (U)Ordere d By: Jade Vidal on 08-05-2022 pH (U) 7.5 [pH] 5.0-9.0 [facility] CBC W MANUAL DIFFon 08-04-20 22 ATYPICAL LYMPH # Normal [facility] Comment on above: Performed By: #### C BC #### [facility] [address] [place] [address] Dr. Ludin Ward ATYPICAL LYMPH % Normal [facility] Comment on above: Performed By: #### C BC #### [facility] [address] [place] [address] Dr. Ludin Ward BAND # 1.3 103/ul Critically high 0.0-0.3 [facility] Comment on above: Performed By: #### C BC #### [facility] [address] [place] [address] Dr. Ludin Ward BAND % 6 % Critically high 0-5 [facility] Comment on above: Performed By: #### C BC #### [facility] [address] [place] [address] Dr. Ludin Ward BASOM # 0.00 103/ul Normal 0.00-0.10 [facility] Comment on above: Performed By: #### C BC #### [facility] [address] [place] [address] Dr. Ludin Ward BASOM % 0.0 % Critically low 0.2-2.0 [facility] Comment on above: Performed By: #### C BC #### [facility] [address] [place] [address] Dr. Ludin Ward BLAST # Normal [facility] Comment on above: Performed By: #### C BC #### [facility] [address] [place] [address] Dr. Ludin Ward BLAST % Normal [facility] Comment on above: Performed By: #### C BC #### [facility] [address] [place] [address] Dr. Ludin Ward CORRECTED WBC Normal 4.0-11.[address] [facility] Comment on above: Performed By: #### C BC #### [facility] [address] [place] [address] Dr. Ludin Ward EOS # 0.00 103/ul Normal 0.00-0.70 [facility] Comment on above: Performed By: #### C BC #### [facility] [address] [place] [address] Dr. Ludin Ward EOS% 0.0 % Critically low 0.9-7.0 [facility] Comment on above: Performed By: #### C BC #### [facility] [address] [place] [address] Dr. Ludin Ward HCT 38.7 % Normal 36.0-48.0 [facility] Comment on above: Performed By: #### C BC #### [facility] [address] [place] [address] Dr. Ludin Ward HGB 12.9 g/dl Normal 12.0-16.0 [facility] Comment on above: Performed By: #### C BC #### [facility] [address] [place] [address] Dr. Ludin Ward LYMPHM # 1.78 103/ul Normal 1.20-3.80 [facility] Comment on above: Performed By: #### C BC #### [facility] [address] [place] [address] Dr. Ludin Ward LYMPHM% 8.0 % Critically low 20.5-60.0 [facility] Comment on above: Performed By: #### C BC #### [facility] [address] [place] [address] Dr. Ludin Ward MCH 28.3 pg Normal 26.7-34.0 [facility] Comment on above: Performed By: #### C BC #### [facility] [address] [place] [address] Dr. Ludin Ward MCHC 33.3 g/dl Normal 29.9-35.2 [facility] Comment on above: Performed By: #### C BC #### [facility] [address] [place] [address] Dr. Ludin Ward MCV 84.9 fL Normal 81.0-99.0 [facility] Comment on above: Performed By: #### C BC #### [facility] [address] [place] [address] Dr. Ludin Ward METAMYELOCYTE # Normal [facility] Comment on above: Performed By: #### C BC #### [facility] [address] [place] [address] Dr. Ludin Ward METAMYELOCYTE % Normal [facility] Comment on above: Performed By: #### C BC #### [facility] [address] [place] [address] Dr. Ludin Ward MONOM# 0.44 103/ul Normal 0.30-0.80 [facility] Comment on above: Performed By: #### C BC #### [facility] [address] [place] [address] Dr. Ludin Ward MONOM% 2.0 % Normal 1.7-12.0 [facility] Comment on above: Performed By: #### C BC #### [facility] [address] [place] [address] Dr. Ludin Ward MPV 10.3 fL Normal 9.5-13.5 [facility] Comment on above: Performed By: #### C BC #### [facility] [address] [place] [address] Dr. Ludin Ward MYELOCYTE # Normal [facility] Comment on above: Performed By: #### C BC #### [facility] [address] [place] [address] Dr. Ludin Ward MYELOCYTE % Normal [facility] Comment on above: Performed By: #### C BC #### [facility] [address] [place] [address] Dr. Ludin Ward NRBC Normal [facility] Comment on above: Performed By: #### C BC #### [facility] [address] [place] [address] [address] Ludin Ward PLT 345 103/ul Normal 150-450 [facility] Comment on above: Performed By: #### C BC #### [facility] [address] [id number] [address] Ludin Ward RBC 4.56 106/ul Normal 4.20-5.40 [facility] Comment on above: Performed By: #### C BC #### [facility] [address] [address] [address] Ludin Ward RDW 12.7 % Normal 11.0-15.0 [facility] Comment on above: Performed By: #### C BC #### [facility] [address] [address] [address] Ludin Ward SEG # 18.65 103/ul Critically high 1.40-6.50 [facility] Comment on above: Performed By: #### C BC #### [facility] [address] [address] [address] Ludin Ward SEG % 84.0 % Critically high 43.0-75.0 [facility] Comment on above: Performed By: #### C BC #### [facility] [id number] Ludin Ward WBC 22.2 103/ul Critically high 4.0-11.0 [facility] Comment on above: Performed By: #### C BC #### [facility] [address] [place] [address] Dr. Ludin Ward ECG 12 lead ECGon 08-04-2022 ECG 12 lead ECG [facility] [place] [address] Electrocardiograph Report Signed Patient: Tessie Santos MR#: [id number] 15 : 1960 Acct:[id number] Age/Sex: 62 / F ADM Date: 08/04/22 Loc: Room: [address] [place] [address] Type: DIS IN Attending Dr: Jaylene Aguilar DO Ordering Provider: Jade Vidal MD Date of Service: 08/04/22 ECG/ECG 12 lead ECG: cp Copies to: Test Reason : Blood Pressure : / mmHG Vent. Rate : 073 BPM Atrial Rate : 073 BPM P-R Int : 182 ms QRS Dur : 082 ms QT Int : 426 ms P-R-T Axes : 003 000 103 degrees QTc Int : 469 ms Normal sinus rhythm Inferior infarct , age undetermined T wave abnormality, consider lateral ischemia Abnormal ECG No previous ECGs available Confirmed by CARTER PENN DO ([id number]) on 08/05/2022 12:48:43 PM Referred By: Electronically Signed By:CARTER PENN DO Transcribed By: MUS Signed By Carter Penn DO 08/05 1248 Normal [facility] Troponin I High Sensitivityo n 08-04-2022 Troponin I High Sensitivity 41 pg/mL High [address] Comment on above: Result Comment: PERF ORMED BY: [place] [address] PATHOLOGIST APPLIED STATISTICIAN ZAC BACON M.D. Performed By: #### H S TROP #### [facility] [address] [place] [address] Troponin I High Sensitivity 40 pg/mL High [address] Comment on above: Result Comment: PERF ORMED BY: [place] [address] PATHOLOGIST APPLIED STATISTICIAN ZAC BACON M.D. Performed By: #### H S TROP #### [facility] [address] [place] [address] CARDIAC CHRISTIANO 3-6on 2 CK [Catalytic activity/Vol] 80 U/L Normal 26-192 [facility] Comment on above: Performed By: #### C MREP #### [facility] [address] [place] [address] Dr. Ludin Ward CK.MB [Mass/Vol] 2.61 ng/mL Normal <=3.60 [facility] Comment on above: Performed By: #### C MREP #### [facility] [address] [place] [address] Dr. Ludin Ward HSTROP 53.3 pg/mL Critically high 4.0-51.3 [facility] Comment on above: Result Comment: CUT- OFF POINTS HAVE BEEN ESTABLISHED BASED ON THE FOURTH UNIVERSAL DEFINITIONS OF MYOCARDIAL INFARCTION. THE UPPER REFERENCE LIMIT (URL) OF TROPONIN, DEFINED THE 99TH PERCENTILE OF cTnI DISTRIBUTION IN A REFERENCE POPULATION, HAS BEEN CONFIRMED THE DECISION THRESHOLD FOR FL DIAGNOSIS. Performed By: #### C MREP #### [facility] [address] [place] [address] Dr. Ludin Ward CK [Catalytic activity/Vol] 89 U/L Normal 26-192 [facility] Comment on above: Performed By: #### C BC #### [facility] [address] [place] [address] Dr. Ludin SHEIKH.MB [Mass/Vol] 2.41 ng/mL Normal <=3.60 [facility] Comment on above: Performed By: #### C BC #### [facility] [address] [place] [address] Dr. Ludin Ward HSTROP 58.2 pg/mL Critically high 4.0-51.3 [facility] Comment on above: Result Comment: CUT- OFF POINTS HAVE BEEN ESTABLISHED BASED ON THE FOURTH UNIVERSAL DEFINITIONS OF MYOCARDIAL INFARCTION. THE UPPER REFERENCE LIMIT (URL) OF TROPONIN, DEFINED THE 99TH PERCENTILE OF cTnI DISTRIBUTION IN A REFERENCE POPULATION, HAS BEEN CONFIRMED THE DECISION THRESHOLD FOR FL DIAGNOSIS. Performed By: #### C BC #### [facility] [address] [place] [address] Dr. Ludin Ward CK [Catalytic activity/Vol] 73 U/L Normal 26-192 [facility] Comment on above: Performed By: #### C MREP #### [facility] [address] [place] [address] Dr. Ludin Ward CK.MB [Mass/Vol] 2.24 ng/mL Normal <=3.60 [facility] Comment on above: Performed By: #### C MREP #### [facility] [address] [place] [address] Dr. Ludin Ward HSTROP 61.0 pg/mL Critically high 4.0-51.3 [facility] Comment on above: Result Comment: CUT- OFF POINTS HAVE BEEN ESTABLISHED BASED ON THE FOURTH UNIVERSAL DEFINITIONS OF MYOCARDIAL INFARCTION. THE UPPER REFERENCE LIMIT (URL) OF TROPONIN, DEFINED THE 99TH PERCENTILE OF cTnI DISTRIBUTION IN A REFERENCE POPULATION, HAS BEEN CONFIRMED THE DECISION THRESHOLD FOR FL DIAGNOSIS. Performed By: #### C MREP #### [facility] [address] [place] [address] Dr. Ludin Ward CBC AUTO DIFFon 08-03-2022 BASO # 0.0 103/ul Normal 0.0-0.1 [facility] Comment on above: Performed By: #### C BC #### [facility] [address] [place] [address] Dr. Ludin Ward Basophils/100 WBC (Bld) 0.3 % Normal 0.2-2.0 [facility] Comment on above: Performed By: #### C BC #### [facility] [address] [place] [address] Dr. Ludin Ward EO # 0.1 103/ul Normal 0.0-0.7 [facility] Comment on above: Performed By: #### C BC #### [facility] [address] [address] [address] Ludin Ward Eosinophils/100 WBC (Bld) 0.8 % Critically low 0.9-7.0 [facility] Comment on above: Performed By: #### C BC #### [facility] [address] [place] [address] Dr. Ludin Ward Erythrocyte distribution width (RBC) [Ratio] 12.8 % Normal 11.0-15.0 [facility] Comment on above: Performed By: #### C BC #### [facility] [address] [place] [address] Dr. Ludin Ward Hematocrit (Bld) [Volume fraction] 37.8 % Normal 36.0-48.0 [facility] Comment on above: Performed By: #### C BC #### [facility] [address] [place] [address] Dr. Ludin Ward Hemoglobin (Bld) [Mass/Vol] 12.6 g/dL Normal 12.0-16.0 [facility] Comment on above: Performed By: #### C BC #### [facility] [address] [place] [address] Dr. Ludin Ward IG # 0.04 10e3/ul Critically high 0.00-0.03 [facility] Comment on above: Performed By: #### C BC #### [facility] [address] [place] [address] Dr. Ludin Ward IG % 0.4 % Normal 0.0-0.5 [facility] Comment on above: Performed By: #### C BC #### [facility] [address] [place] [address] Dr. Ludin Ward LYMPH # 1.8 103/ul Normal 1.2-3.8 [facility] Comment on above: Performed By: #### C BC #### [facility] [address] [place] [address] Dr. Ludin Ward Lymphocytes/100 WBC (Bld) 16.8 % Critically low 20.5-60.0 [facility] Comment on above: Performed By: #### C BC #### [facility] [address] [place] [address] Dr. Ludin Ward MANUAL DIFF REQ NO Normal [facility] Comment on above: Performed By: #### C BC #### [facility] [address] [place] [address] Dr. Ludin Ward MCH (RBC) [Entitic mass] 28.6 pg Normal 26.7-34.0 [facility] Comment on above: Performed By: #### C BC #### [facility] [address] [place] [address] Dr. Ludin Ward MCHC (RBC) [Mass/Vol] 33.3 g/dL Normal 29.9-35.2 [facility] Comment on above: Performed By: #### C BC #### [facility] [address] [place] [address] Dr. Ludin Ward MCV (RBC) [Entitic vol] 85.9 fL Normal 81.0-99.0 [facility] Comment on above: Performed By: #### C BC #### [facility] [address] [address] [address] Ludin Ward MONO # 0.7 103/ul Normal 0.3-0.8 [facility] Comment on above: Performed By: #### C BC #### [facility] [address] [address] [address] Ludin Ward Monocytes/100 WBC (Bld) 6.2 % Normal 1.7-12.0 [facility] Comment on above: Performed By: #### C BC #### [facility] [address] [address] [address] Ludin Ward NEUT # 8.1 103/ul Critically high 1.4-6.5 [facility] Comment on above: Performed By: #### C BC #### [facility] [address] [place] [address] Dr. Ludin Ward Neutrophils/100 WBC (Bld) 75.5 % Critically high 43.0-75.0 [facility] Comment on above: Performed By: #### C BC #### [facility] [address] [place] [address] Dr. Ludin Ward Platelet mean volume (Bld) [Entitic vol] 10.3 fL Normal 9.5-13.5 [facility] Comment on above: Performed By: #### C BC #### [facility] [address] [place] [address] Dr. Ludin Ward PLT 323 103/ul Normal 150-450 [facility] Comment on above: Performed By: #### C BC #### [facility] [address] [place] [address] Dr. Ludin Ward RBC 4.40 106/ul Normal 4.20-5.40 [facility] Comment on above: Performed By: #### C BC #### [facility] [address] [place] [address] Dr. Ludin Ward WBC 10.7 103/ul Normal 4.0-11.0 [facility] Comment on above: Performed By: #### C BC #### [facility] [address] [address] [address] HEAD WO CONon 08-03-2022 CT HEAD WO CON EXAMINATION: CT HEAD WO CON HISTORY: Paresthesia.Dizziness . Right arm and leg numbness that began this morning. COMPARISON: Comparison made to head CT dated 05/11/2022. TECHNIQUE: CT examination of the head without IV contrast. Dose reduction techniques were achieved by using automated exposure control and/or adjustment of mA and/or kV according to patient size and/or use of iterative reconstruction technique. FINDINGS: There is no focal scalp soft tissue swelling or acute calvarial fracture. The visualized globes and orbits are grossly normal. Visualized paranasal sinuses are clear. Bilateral mastoid air cells are clear. The ventricles and sulci are normal and symmetric bilaterally. There is no intraparenchymal hemorrhage, extraaxial fluid collection, mass lesion, or acute large territory ischemia by noncontrast CT. There is intracranial atherosclerosis. IMPRESSION: 1. No acute intracranial hemorrhage or acute large territory ischemia by noncontrast CT. If the patient has a focal neurologic deficit or there is clinical suspicion for acute cerebrovascular accident, brain MRI would be recommended for further evaluation. Electronically authenticated by: JAYLENE MARTINEZ Date: 2022-08-03 08:19 Normal [facility] Covid-19 PCR ([facility])on 07-20 SARS-CoV-2 (COVID-19) RNA MADELINE+probe Ql (Unsp spec) Not detected Normal NOT DETECTED [facility] Comment on above: Result Comment: When diagnostic testing is negative, the possibility of a false negative should be considered in the context of a patient's recent exposures and the presence of clinical signs and symptoms consistent with SARS-CoV-2. This test is not yet approved or cleared by the [place] FDA. When there are no FDA-approved or cleared tests available, and other criteria are met, FDA can make tests available under an emergency access mechanism called an Emergency Use Authorization (EUA). The EUA for this test is supported by the County Treasurer of Health and Human Service's declaration that circumstances exist to justify the emergency use of in vitro diagnostics for the detection and/or diagnosis of the virus that causes COVID-19. This EUA will remain in effect for the duration of the COVID-19 declaration justifying emergency of IVDs, unless it is terminated or revoked by the FDA (after which the test may no longer be used). Performed By: #### C MADDiane, BMP #### [facility] [address] [place] [address] Dr. Ludin Ward PROF 14(COMP METB)on 08-03- 022 Albumin [Mass/Vol] 3.1 g/dL Critically low 3.4-5.0 [facility] Comment on above: Performed By: #### C MREP #### [facility] [address] [place] [address] Dr. Ludin Ward Albumin/Globulin [Mass ratio] 0.7 {ratio} Normal [facility] Comment on above: Performed By: #### C MREP #### [facility] [address] [place] [address] Dr. Ludin Ward ALP [Catalytic activity/Vol] 61 U/L Normal 46-116 [facility] Comment on above: Performed By: #### C MREP #### [facility] [address] [place] [address] Dr. Ludin Ward ALT [Catalytic activity/Vol] 22 U/L Normal 14-59 [facility] Comment on above: Performed By: #### C MREP #### [facility] [address] [place] [address] Dr. Ludin Ward Anion gap [Moles/Vol] 13.1 mmol/L Normal [facility] Comment on above: Performed By: #### C MREP #### [facility] [address] [place] [address] Dr. Ludin Ward AST [Catalytic activity/Vol] 23 U/L Normal 15-37 [facility] Comment on above: Performed By: #### C MREP #### [facility] [address] [place] [address] Dr. Ludin Ward Bilirubin [Mass/Vol] 0.3 mg/dL Normal 0.2-1.0 [facility] Comment on above: Performed By: #### C MREP #### [facility] [address] [place] [address] Dr. Ludin Ward Calcium [Mass/Vol] 9.3 mg/dL Normal 8.5-10.1 [facility] Comment on above: Performed By: #### C MREP #### [facility] [address] [address] [address] Ludin Ward Chloride [Moles/Vol] 101 mmol/L Normal 98-107 [facility] Comment on above: Performed By: #### C MREP #### [facility] [address] [address] [address] Ludin Ward CO2 [Moles/Vol] 28.7 mmol/L Normal 21.0-32.0 [facility] Comment on above: Performed By: #### C MREP #### [facility] [address] [place] [address] Dr. Ludin Ward Creatinine [Mass/Vol] 0.97 mg/dL Normal 0.55-1.02 [facility] Comment on above: Performed By: #### C MREP #### [facility] [address] [place] [address] Dr. Ludin Ward EGFR-AF MARTINIQUAIS >60 Normal >=60 [facility] Comment on above: Performed By: #### C MREP #### [facility] [address] [place] [address] Dr. Ludin Ward EGFR-NON AF MARTINIQUAIS 59 mL/min/1.73m2 Critically low >=60 [facility] Comment on above: Performed By: #### C MREP #### [facility] [address] [address] [address] Ludin Ward Globulin (S) [Mass/Vol] 4.7 g/dL Normal [facility] Comment on above: Performed By: #### C MREP #### [facility] [address] [place] [address] Dr. Ludin Ward Glucose [Mass/Vol] 141 mg/dL Critically high 74-106 [facility] Comment on above: Performed By: #### C MREP #### [facility] [address] [place] [address] Dr. Ludin Ward Potassium [Moles/Vol] 3.8 mmol/L Normal 3.5-5.1 [facility] Comment on above: Performed By: #### C MREP #### [facility] [address] [address] [address] Ludin Ward Protein [Mass/Vol] 7.8 g/dL Normal 6.4-8.2 [facility] Comment on above: Performed By: #### C MREP #### [facility] [address] [address] [address] Ludin Ward Sodium [Moles/Vol] 139 mmol/L Normal 136-145 [facility] Comment on above: Performed By: #### C MREP #### [facility] [address] [address] [address] Ludin Ward Urea nitrogen [Mass/Vol] 26.0 mg/dL Critically high 7.0-18 .0 [facility] Comment on above: Performed By: #### C MREP #### [facility] [address] [address] [address] Ludin Ward Urea nitrogen/Creatinine [Mass ratio] 26.8 mg/mg Normal [facility] Comment on above: Performed By: #### C MREP #### [facility] [address] [address] [address] Ludin Ward TROPONIN, HIGH SENSITIVITYon 08-03-2022 HSTROP 62.2 pg/mL Critically high 4.0-51.3 [facility] Comment on above: Result Comment: CUT- OFF POINTS HAVE BEEN ESTABLISHED BASED ON THE FOURTH UNIVERSAL DEFINITIONS OF MYOCARDIAL INFARCTION. THE UPPER REFERENCE LIMIT (URL) OF TROPONIN, DEFINED THE 99TH PERCENTILE OF cTnI DISTRIBUTION IN A REFERENCE POPULATION, HAS BEEN CONFIRMED THE DECISION THRESHOLD FOR FL DIAGNOSIS. Performed By: #### C BC #### [facility] [address] [address] [address] Ludin Ward HSTROP 53.6 pg/mL Critically high 4.0-51.3 [facility] Comment on above: Result Comment: CUT- OFF POINTS HAVE BEEN ESTABLISHED BASED ON THE FOURTH UNIVERSAL DEFINITIONS OF MYOCARDIAL INFARCTION. THE UPPER REFERENCE LIMIT (URL) OF TROPONIN, DEFINED THE 99TH PERCENTILE OF cTnI DISTRIBUTION IN A REFERENCE POPULATION, HAS BEEN CONFIRMED THE DECISION THRESHOLD FOR FL DIAGNOSIS. Performed By: #### C MADM, BMP #### [facility] [address] [place] [address] Dr. Ludin Ward BNPon 07-04-2022 Natriuretic peptide B (Bld) [Mass/Vol] 698.0 pg/mL Normal <=900.0 [facility] Comment on above: Performed By: #### C MP, BNP, HSTROPN #### [facility] [address] [place] [address] Dr. Ludin Ward CBC AUTO DIFFon 07-04-2022 BASO # 0.0 103/ul Normal 0.0-0.1 [facility] Comment on above: Performed By: #### C BC #### [facility] [address] [place] [address] Dr. Ludin Ward Basophils/100 WBC (Bld) 0.3 % Normal 0.2-2.0 [facility] Comment on above: Performed By: #### C BC #### [facility] [address] [place] [address] Dr. Ludin Ward EO # 0.1 103/ul Normal 0.0-0.7 [facility] Comment on above: Performed By: #### C BC #### [facility] [address] [place] [address] Dr. Ludin Ward Eosinophils/100 WBC (Bld) 0.5 % Critically low 0.9-7.0 [facility] Comment on above: Performed By: #### C BC #### [facility] [address] [place] [address] Dr. Ludin Ward Erythrocyte distribution width (RBC) [Ratio] 12.8 % Normal 11.0-15.0 [facility] Comment on above: Performed By: #### C BC #### [facility] [address] [place] [address] Dr. Ludin Ward Hematocrit (Bld) [Volume fraction] 41.9 % Normal 36.0-48.0 [facility] Comment on above: Performed By: #### C BC #### [facility] [address] [place] [address] Dr. Ludin Ward Hemoglobin (Bld) [Mass/Vol] 14.2 g/dL Normal 12.0-16.0 [facility] Comment on above: Performed By: #### C BC #### [facility] [address] [place] [address] Dr. Ludin Ward IG # 0.02 10e3/ul Normal 0.00-0.03 [facility] Comment on above: Performed By: #### C BC #### [facility] [address] [place] [address] Dr. Ludin Ward IG % 0.2 % Normal 0.0-0.5 [facility] Comment on above: Performed By: #### C BC #### [facility] [address] [place] [address] Dr. Ludin Ward LYMPH # 2.2 103/ul Normal 1.2-3.8 [facility] Comment on above: Performed By: #### C BC #### [facility] [address] [place] [address] Dr. Ludin Ward Lymphocytes/100 WBC (Bld) 20.9 % Normal 20.5-60.0 [facility] Comment on above: Performed By: #### C BC #### [facility] [address] [place] [address] Dr. Ludin Ward MANUAL DIFF REQ NO Normal [facility] Comment on above: Performed By: #### C BC #### [facility] [address] [place] [address] Dr. Ludin Ward MCH (RBC) [Entitic mass] 28.6 pg Normal 26.7-34.0 [facility] Comment on above: Performed By: #### C BC #### [facility] [address] [place] [address] Dr. Ludin Ward MCHC (RBC) [Mass/Vol] 33.9 g/dL Normal 29.9-35.2 [facility] Comment on above: Performed By: #### C BC #### [facility] [address] [address] [address] Ludin Ward MCV (RBC) [Entitic vol] 84.5 fL Normal 81.0-99.0 [facility] Comment on above: Performed By: #### C BC #### [facility] [address] [address] [address] Ludin Ward MONO # 0.6 103/ul Normal 0.3-0.8 [facility] Comment on above: Performed By: #### C BC #### [facility] [address] [place] [address] Dr. Ludin Ward Monocytes/100 WBC (Bld) 5.4 % Normal 1.7-12.0 [facility] Comment on above: Performed By: #### C BC #### [facility] [address] [place] [address] Dr. Ludin Ward NEUT # 7.6 103/ul Critically high 1.4-6.5 [facility] Comment on above: Performed By: #### C BC #### [facility] [address] [place] [address] Dr. Ludin Ward Neutrophils/100 WBC (Bld) 72.7 % Normal 43.0-75.0 [facility] Comment on above: Performed By: #### C BC #### [facility] [address] [place] [address] Dr. Ludin Ward Platelet mean volume (Bld) [Entitic vol] 10.5 fL Normal 9.5-13.5 [facility] Comment on above: Performed By: #### C BC #### [facility] [address] [place] [address] Dr. Ludin Ward PLT 330 103/ul Normal 150-450 [facility] Comment on above: Performed By: #### C BC #### [facility] [address] [place] [address] Dr. Ludin Ward RBC 4.96 106/ul Normal 4.20-5.40 [facility] Comment on above: Performed By: #### C BC #### [facility] [address] [place] [address] Dr. Ludin Ward WBC 10.5 103/ul Normal 4.0-11.0 [facility] Comment on above: Performed By: #### C BC #### [facility] [address] [place] [address] Dr. Ludin Ward D-DIMERon 07-04-2022 D-DIMER 0.33 mg/L FEU Normal <=0.59 [facility] Comment on above: Performed By: #### C MREP #### [facility] [address] [place] [address] Dr. Ludin Ward D-DIMER COMMENTS SEE BELOW Normal [facility] Comment on above: Result Comment: Incr eases in D-Dimer concentration observed with thromboembolic events can be variable due to localization, size, and age of the thrombus. Therefore, a thromboembolic event cannot be diagnosed with certainty on the basis of the reference range. D-Dimers may also be elevated for a variety of disorders including: advanced age, , coronary disease, cancer, liver disease, infection, inflammation, hematoma, DIC, trauma, post-surgery, diabetes, thrombolytic or anticoagulant therapy, stress, and generalized hospitalization. Performed By: #### C MREP #### [facility] [address] [place] [address] Dr. Ludin Ward PROF 14(COMP METB)on 022 Albumin [Mass/Vol] 3.6 g/dL Normal 3.4-5.0 [facility] Comment on above: Performed By: #### C MP, BNP, HSTROPN #### [facility] [address] [place] [address] Dr. Ludin Ward Albumin/Globulin [Mass ratio] 0.7 {ratio} Normal [facility] Comment on above: Performed By: #### C MP, BNP, HSTROPN #### [facility] [address] [place] [address] Dr. Ludin Ward ALP [Catalytic activity/Vol] 64 U/L Normal 46-116 [facility] Comment on above: Performed By: #### C MP, BNP, HSTROPN #### [facility] [address] [place] [address] Dr. Ludin Ward ALT [Catalytic activity/Vol] 35 U/L Normal 14-59 [facility] Comment on above: Performed By: #### C MP, BNP, HSTROPN #### [facility] [address] [address] [address] Ludin Ward Anion gap [Moles/Vol] 11.9 mmol/L Normal [facility] Comment on above: Performed By: #### C MP, BNP, HSTROPN #### [facility] [address] [address] [address] Ludin Ward AST [Catalytic activity/Vol] 32 U/L Normal 15-37 [facility] Comment on above: Performed By: #### C MP, BNP, HSTROPN #### [facility] [address] [place] [address] Dr. Ludin Ward Bilirubin [Mass/Vol] 0.4 mg/dL Normal 0.2-1.0 [facility] Comment on above: Performed By: #### C MP, BNP, HSTROPN #### [facility] [address] [place] [address] Dr. Ludin Ward Calcium [Mass/Vol] 9.7 mg/dL Normal 8.5-10.1 [facility] Comment on above: Performed By: #### C MP, BNP, HSTROPN #### [facility] [address] [place] [address] Dr. Ludni Ward Chloride [Moles/Vol] 99 mmol/L Normal 98-107 [facility] Comment on above: Performed By: #### C MP, BNP, HSTROPN #### [facility] [address] [place] [address] Dr. Ludin Ward CO2 [Moles/Vol] 27.5 mmol/L Normal 21.0-32.0 [facility] Comment on above: Performed By: #### C MP, BNP, HSTROPN #### [facility] [address] [place] [address] Dr. Ludin Ward Creatinine [Mass/Vol] 1.08 mg/dL Critically high 0.55-1.02 [facility] Comment on above: Performed By: #### C MP, BNP, HSTROPN #### [facility] [address] [place] [address] Dr. Ludin Ward EGFR-AF MARTINIQUAIS >60 Normal >=60 [facility] Comment on above: Performed By: #### C MP, BNP, HSTROPN #### [facility] [address] [place] [address] Dr. Ludin Ward EGFR-NON AF MARTINIQUAIS 52 mL/min/1.73m2 Critically low >=60 [facility] Comment on above: Performed By: #### C MP, BNP, HSTROPN #### [facility] [address] [place] [address] Dr. Ludin Ward Globulin (S) [Mass/Vol] 5.1 g/dL Normal [facility] Comment on above: Performed By: #### C MP, BNP, HSTROPN #### [facility] [address] [place] [address] Dr. Ludin Ward Glucose [Mass/Vol] 123 mg/dL Critically high 74-106 [facility] Comment on above: Performed By: #### C MP, BNP, HSTROPN #### [facility] [address] [place] [address] Dr. Ludin Ward Potassium [Moles/Vol] 3.4 mmol/L Critically low 3.5-5.1 [facility] Comment on above: Performed By: #### C MP, BNP, HSTROPN #### [facility] [address] [place] [address] Dr. Ludin Ward Protein [Mass/Vol] 8.7 g/dL Critically high 6.4-8.2 [facility] Comment on above: Performed By: #### C MP, BNP, HSTROPN #### [facility] [address] [place] [address] Dr. Ludin Ward Sodium [Moles/Vol] 135 mmol/L Critically low 136-145 [facility] Comment on above: Performed By: #### C MP, BNP, HSTROPN #### [facility] [address] [place], [place] [address] Dr. Ludin Ward Urea nitrogen [Mass/Vol] 20.0 mg/dL Critically high 7.0-18 .0 [facility] Comment on above: Performed By: #### C MP, BNP, HSTROPN #### [facility] [address] [place], [place] [address] Dr. Ludin Ward Urea nitrogen/Creatinine [Mass ratio] 18.5 mg/mg Normal [facility] Comment on above: Performed By: #### C MP, BNP, HSTROPN #### [facility] [address] [address] [address] Ludin Ward TROPONIN, HIGH SENSITIVITYon 07-04-2022 HSTROP 76.4 pg/mL Critically high 4.0-51.3 [facility] Comment on above: Result Comment: CUT- OFF POINTS HAVE BEEN ESTABLISHED BASED ON THE FOURTH UNIVERSAL DEFINITIONS OF MYOCARDIAL INFARCTION. THE UPPER REFERENCE LIMIT (URL) OF TROPONIN, DEFINED THE 99TH PERCENTILE OF cTnI DISTRIBUTION IN A REFERENCE POPULATION, HAS BEEN CONFIRMED THE DECISION THRESHOLD FOR [place] DIAGNOSIS. Performed By: #### H STROPN #### [facility] [address] [address] [address] Ludin Ward HSTROP 77.7 pg/mL Critically high 4.0-51.3 [facility] Comment on above: Result Comment: CUT- OFF POINTS HAVE BEEN ESTABLISHED BASED ON THE FOURTH UNIVERSAL DEFINITIONS OF MYOCARDIAL INFARCTION. THE UPPER REFERENCE LIMIT (URL) OF TROPONIN, DEFINED THE 99TH PERCENTILE OF cTnI DISTRIBUTION IN A REFERENCE POPULATION, HAS BEEN CONFIRMED THE DECISION THRESHOLD FOR [place] DIAGNOSIS. Performed By: #### C MADM, BMP #### [facility] [address] [address] [address] Ludin Ward XR CHEST 1 Von 07-04-2022 XR CHEST 1 V EXAMINATION: XR CHES T 1 V HISTORY: CHEST PAIN, UNSPECIFIED COMPARISON: XR chest 05/20/2022, 05/11/2022 FINDINGS: LUNGS: A thin curvilinear opacity within left mid and lower lung. Right lung is clear. VASCULATURE: No increased pulmonary vasculature. PLEURA: No pneumothorax, effusion, or pleural thickening. CARDIAC: No cardiomegaly or cardiac silhouette abnormality. MEDIASTINUM: No visible mass or adenopathy. BONES: No fracture or visible bone lesion. OTHER: Negative. IMPRESSION: 1. No acute cardiopulmonary process. 2. Trace amount of scarring or discoid atelectasis within left lung base; also seen on prior studies. Electronically authenticated by: TED LI Date: 2022-07-04 07:39 Normal [facility] CARDIAC CHRISTIANO 3-6on 2 CK [Catalytic activity/Vol] 231 U/L Critically high 26-192 [facility] Comment on above: Performed By: #### C BC #### [facility] [address] [address] [address] Ludin Ward CK.MB [Mass/Vol] 6.35 ng/mL Critically high <=3.60 [facility] Comment on above: Performed By: #### C BC #### [facility] [address] [address] [address] Ludin Ward HSTROP 129.3 pg/mL Critically high 4.0-51.3 [facility] Comment on above: Result Comment: CUT- OFF POINTS HAVE BEEN ESTABLISHED BASED ON THE FOURTH UNIVERSAL DEFINITIONS OF MYOCARDIAL INFARCTION. THE UPPER REFERENCE LIMIT (URL) OF TROPONIN, DEFINED THE 99TH PERCENTILE OF cTnI DISTRIBUTION IN A REFERENCE POPULATION, HAS BEEN CONFIRMED THE DECISION THRESHOLD FOR [place] DIAGNOSIS. Performed By: #### C BC #### [facility] [address] [address] [address] Ludin Ward CK [Catalytic activity/Vol] 252 U/L Critically high 26-192 [facility] Comment on above: Performed By: #### C MADM, BMP #### [facility] [address] [address] [address] Ludin Ward CK.MB [Mass/Vol] 5.02 ng/mL Critically high <=3.60 [facility] Comment on above: Performed By: #### C MADM, BMP #### [facility] [address] [address] [address] Ludin Ward HSTROP 137.6 pg/mL Critically high 4.0-51.3 [facility] Comment on above: Result Comment: CUT- OFF POINTS HAVE BEEN ESTABLISHED BASED ON THE FOURTH UNIVERSAL DEFINITIONS OF MYOCARDIAL INFARCTION. THE UPPER REFERENCE LIMIT (URL) OF TROPONIN, DEFINED THE 99TH PERCENTILE OF cTnI DISTRIBUTION IN A REFERENCE POPULATION, HAS BEEN CONFIRMED THE DECISION THRESHOLD FOR [place] DIAGNOSIS. Performed By: #### C MADM, BMP #### [facility] [address] [place] [address] Dr. Ludin Ward CBC AUTO DIFFon 05-21-2022 BASO # 0.0 103/ul Normal 0.0-0.1 [facility] Comment on above: Performed By: #### C BC #### [facility] [address] [place] [address] Dr. Ludin Ward Basophils/100 WBC (Bld) 0.3 % Normal 0.2-2.0 [facility] Comment on above: Performed By: #### C BC #### [facility] [address] [place] [address] Dr. Ludin Ward EO # 0.1 103/ul Normal 0.0-0.7 [facility] Comment on above: Performed By: #### C BC #### [facility] [address] [place] [address] Dr. Ludin Ward Eosinophils/100 WBC (Bld) 0.7 % Critically low 0.9-7.0 [facility] Comment on above: Performed By: #### C BC #### [facility] [address] [place] [address] Dr. Ludin Ward Erythrocyte distribution width (RBC) [Ratio] 12.5 % Normal 11.0-15.0 [facility] Comment on above: Performed By: #### C BC #### [facility] [address] [place] [address] Dr. Ludin Ward Hematocrit (Bld) [Volume fraction] 42.8 % Normal 36.0-48.0 [facility] Comment on above: Performed By: #### C BC #### [facility] [address] [place] [address] Dr. Ludin Ward Hemoglobin (Bld) [Mass/Vol] 14.6 g/dL Normal 12.0-16.0 [facility] Comment on above: Performed By: #### C BC #### [facility] [address] [place] [address] Dr. Ludin Ward IG # 0.02 10e3/ul Normal 0.00-0.03 [facility] Comment on above: Performed By: #### C BC #### [facility] [address] [place] [address] Dr. Ludin Ward IG % 0.2 % Normal 0.0-0.5 [facility] Comment on above: Performed By: #### C BC #### [facility] [address] [place] [address] Dr. Ludin Ward LYMPH # 2.8 103/ul Normal 1.2-3.8 [facility] Comment on above: Performed By: #### C BC #### [facility] [address] [place] [address] Dr. Ludin Ward Lymphocytes/100 WBC (Bld) 25.3 % Normal 20.5-60.0 [facility] Comment on above: Performed By: #### C BC #### [facility] [address] [place] [address] Dr. Ludin Ward MANUAL DIFF REQ NO Normal [facility] Comment on above: Performed By: #### C BC #### [facility] [address] [place] [address] Dr. Ludin Ward MCH (RBC) [Entitic mass] 28.7 pg Normal 26.7-34.0 [facility] Comment on above: Performed By: #### C BC #### [facility] [address] [place] [address] Dr. Ludin Ward MCHC (RBC) [Mass/Vol] 34.1 g/dL Normal 29.9-35.2 [facility] Comment on above: Performed By: #### C BC #### [facility] [address] [place] [address] Dr. Ludin Ward MCV (RBC) [Entitic vol] 84.3 fL Normal 81.0-99.0 [facility] Comment on above: Performed By: #### C BC #### [facility] [address] [address] [address] Ludin Ward MONO # 0.8 103/ul Normal 0.3-0.8 [facility] Comment on above: Performed By: #### C BC #### [facility] [address] [address] [address] Ludin Ward Monocytes/100 WBC (Bld) 7.2 % Normal 1.7-12.0 [facility] Comment on above: Performed By: #### C BC #### [facility] [address] [address] [address] Ludin Ward NEUT # 7.4 103/ul Critically high 1.4-6.5 [facility] Comment on above: Performed By: #### C BC #### [facility] [address] [place] [address] Dr. Ludin Ward Neutrophils/100 WBC (Bld) 66.3 % Normal 43.0-75.0 [facility] Comment on above: Performed By: #### C BC #### [facility] [address] [place] [address] Dr. Ludin Ward Platelet mean volume (Bld) [Entitic vol] 10.9 fL Normal 9.5-13.5 [facility] Comment on above: Performed By: #### C BC #### [facility] [address] [place] [address] Dr. Ludin Ward PLT 331 103/ul Normal 150-450 [facility] Comment on above: Performed By: #### C BC #### [facility] [address] [address] [address] Ludin Ward RBC 5.08 106/ul Normal 4.20-5.40 [facility] Comment on above: Performed By: #### C BC #### [facility] [address] [address] [address] Ludin Ward WBC 11.2 103/ul Critically high 4.0-11.0 [facility] Comment on above: Performed By: #### C BC #### [facility] [address] [address] [address] Ludin Ward PROF CHEM 8 (BAS METB)on Anion gap [Moles/Vol] 9.5 mmol/L Normal [facility] Comment on above: Performed By: #### C MADM, BMP #### [facility] [address] [place] [address] Dr. Ludin Ward Calcium [Mass/Vol] 9.7 mg/dL Normal 8.5-10.1 [facility] Comment on above: Performed By: #### C MADM, BMP #### [facility] [address] [place] [address] Dr. Ludin Ward Chloride [Moles/Vol] 97 mmol/L Critically low 98-107 [facility] Comment on above: Performed By: #### C MADM, BMP #### [facility] [address] [place] [address] Dr. Ludin Ward CO2 [Moles/Vol] 29.4 mmol/L Normal 21.0-32.0 [facility] Comment on above: Performed By: #### C MADM, BMP #### [facility] [address] [place] [address] Dr. Ludin Ward Creatinine [Mass/Vol] 0.81 mg/dL Normal 0.55-1.02 [facility] Comment on above: Performed By: #### C MADM, BMP #### [facility] [address] [place] [address] Dr. Ludin Ward EGFR-AF MARTINIQUAIS >60 Normal >=60 [facility] Comment on above: Performed By: #### C MADM, BMP #### [facility] [address] [place] [address] Dr. Ludin Ward EGFR-NON AF MARTINIQUAIS >60 Normal >=60 [facility] Comment on above: Performed By: #### C MADM, BMP #### [facility] [address] [place] [address] Dr. Ludin Ward Glucose [Mass/Vol] 110 mg/dL Critically high 74-106 [facility] Comment on above: Performed By: #### C MADM, BMP #### [facility] [address] [address] [address] Ludin Ward Potassium [Moles/Vol] 2.9 mmol/L Critically low 3.5-5.1 [facility] Comment on above: Performed By: #### C MADM, BMP #### [facility] [address] [address] [address] Ludin Ward Sodium [Moles/Vol] 133 mmol/L Critically low 136-145 [facility] Comment on above: Performed By: #### C MADM, BMP #### [facility] [address] [address] [address] Ludin Ward Urea nitrogen [Mass/Vol] 22.0 mg/dL Critically high 7.0-18 .0 [facility] Comment on above: Performed By: #### C SHOBHAM, BMP #### [facility] [address] [address] [address] Ludin Ward Urea nitrogen/Creatinine [Mass ratio] 27.2 mg/mg Normal [facility] Comment on above: Performed By: #### C SHOBHAM, BMP #### [facility] [address] [place] [address] Dr. Ludin Ward TROPONIN, HIGH SENSITIVITYon 05-21-2022 HSTROP 124.9 pg/mL Critically high 4.0-51.3 [facility] Comment on above: Result Comment: CUT- OFF POINTS HAVE BEEN ESTABLISHED BASED ON THE FOURTH UNIVERSAL DEFINITIONS OF MYOCARDIAL INFARCTION. THE UPPER REFERENCE LIMIT (URL) OF TROPONIN, DEFINED THE 99TH PERCENTILE OF cTnI DISTRIBUTION IN A REFERENCE POPULATION, HAS BEEN CONFIRMED THE DECISION THRESHOLD FOR [place] DIAGNOSIS. Performed By: #### C ROBYN, BMP #### [facility] [address] [place] [address] Dr. Ludin Ward XR CHEST 1 Von 05-21-2022 XR CHEST 1 V EXAMINATION: XR CHES T 1 V, , 05/20/2022 10:33 PM EDT INDICATION: Pain HISTORY: Ordering Provider Reason for Exam: Technologist Note: Additional: COMPARISON: Chest x-ray dated 05/11/2022. TECHNIQUE: Chest x-ray: One view. FINDINGS: No pneumothorax, pleural effusion or focal airspace consolidation. Stable appearing minimal scar/atelectasis is seen in the left midlung field. Heart is normal in size. Bony thorax is unremarkable. IMPRESSION: No acute cardiopulmonary process. Electronically authenticated by: EVER JUAN[place]Y Date: 2022-05-20 23:13 Normal [facility] CARDIAC CHRISTIANO ADMITon 022 CK [Catalytic activity/Vol] 289 U/L Critically high 26-192 [facility] Comment on above: Performed By: #### C ROBYN, BMP #### [facility] [address] [place] [address] Dr. Ludin Ward CK.MB [Mass/Vol] 6.51 ng/mL Critically high <=3.60 [facility] Comment on above: Performed By: #### C ROBYN, BMP #### [facility] [address] [place] [address] Dr. Ludin Ward HSTROP 140.5 pg/mL Critically high 4.0-51.3 [facility] Comment on above: Result Comment: CUT- OFF POINTS HAVE BEEN ESTABLISHED BASED ON THE FOURTH UNIVERSAL DEFINITIONS OF MYOCARDIAL INFARCTION. THE UPPER REFERENCE LIMIT (URL) OF TROPONIN, DEFINED THE 99TH PERCENTILE OF cTnI DISTRIBUTION IN A REFERENCE POPULATION, HAS BEEN CONFIRMED THE DECISION THRESHOLD FOR [place] DIAGNOSIS. Performed By: #### C ROBYN, BMP #### [facility] [address] [place] [address] Dr. Ludin Ward RODNEY 328 ng/mL Critically high 9-82 [facility] Comment on above: Performed By: #### C ROBYN, BMP #### [facility] [address] [place] [address] Dr. Ludin Ward CBC AUTO DIFFon 05-20-2022 BASO # 0.1 103/ul Normal 0.0-0.1 [facility] Comment on above: Performed By: #### C BC #### [facility] [address] [place] [address] Dr. Ludin Ward Basophils/100 WBC (Bld) 0.4 % Normal 0.2-2.0 [facility] Comment on above: Performed By: #### C BC #### [facility] [address] [place] [address] Dr. Ludin Ward EO # 0.1 103/ul Normal 0.0-0.7 [facility] Comment on above: Performed By: #### C BC #### [facility] [address] [place] [address] Dr. Ludin Ward Eosinophils/100 WBC (Bld) 0.7 % Critically low 0.9-7.0 [facility] Comment on above: Performed By: #### C BC #### [facility] [address] [place] [address] Dr. Ludin Ward Erythrocyte distribution width (RBC) [Ratio] 12.8 % Normal 11.0-15.0 [facility] Comment on above: Performed By: #### C BC #### [facility] [address] [place] [address] Dr. Ludin Ward Hematocrit (Bld) [Volume fraction] 45.0 % Normal 36.0-48.0 [facility] Comment on above: Performed By: #### C BC #### [facility] [address] [place] [address] Dr. Ludin Ward Hemoglobin (Bld) [Mass/Vol] 15.3 g/dL Normal 12.0-16.0 [facility] Comment on above: Performed By: #### C BC #### [facility] [address] [place] [address] Dr. Ludin Ward IG # 0.04 10e3/ul Critically high 0.00-0.03 [facility] Comment on above: Performed By: #### C BC #### [facility] [address] [place] [address] Dr. Ludin Ward IG % 0.3 % Normal 0.0-0.5 [facility] Comment on above: Performed By: #### C BC #### [facility] [address] [place] [address] Dr. Ludin Ward LYMPH # 3.9 103/ul Critically high 1.2-3.8 [facility] Comment on above: Performed By: #### C BC #### [facility] [address] [address] [address] Ludin Ward Lymphocytes/100 WBC (Bld) 27.6 % Normal 20.5-60.0 [facility] Comment on above: Performed By: #### C BC #### [facility] [address] [address] [address] Ludin Ward MANUAL DIFF REQ NO Normal [facility] Comment on above: Performed By: #### C BC #### [facility] [address] [place] [address] Dr. Ludin Ward MCH (RBC) [Entitic mass] 28.7 pg Normal 26.7-34.0 [facility] Comment on above: Performed By: #### C BC #### [facility] [address] [place] [address] Dr. Ludin Ward MCHC (RBC) [Mass/Vol] 34.0 g/dL Normal 29.9-35.2 [facility] Comment on above: Performed By: #### C BC #### [facility] [address] [place] [address] Dr. Ludin Ward MCV (RBC) [Entitic vol] 84.3 fL Normal 81.0-99.0 [facility] Comment on above: Performed By: #### C BC #### [facility] [address] [place] [address] Dr. Ludin Ward MONO # 1.3 103/ul Critically high 0.3-0.8 [facility] Comment on above: Performed By: #### C BC #### [facility] [address] [place] [address] Dr. Ludin Ward Monocytes/100 WBC (Bld) 8.9 % Normal 1.7-12.0 [facility] Comment on above: Performed By: #### C BC #### [facility] [address] [place] [address] Dr. Ludin Ward NEUT # 8.9 103/ul Critically high 1.4-6.5 [facility] Comment on above: Performed By: #### C BC #### [facility] [address] [address] [address] Ludin Ward Neutrophils/100 WBC (Bld) 62.1 % Normal 43.0-75.0 [facility] Comment on above: Performed By: #### C BC #### [facility] [address] [address] [address] Ludin Ward Platelet mean volume (Bld) [Entitic vol] 12.1 fL Normal 9.5-13.5 [facility] Comment on above: Performed By: #### C BC #### [facility] [address] [address] [address] Ludin Ward PLT 321 103/ul Normal 150-450 [facility] Comment on above: Performed By: #### C BC #### [facility] [address] [place] [address] Dr. Ludin Ward RBC 5.34 106/ul Normal 4.20-5.40 [facility] Comment on above: Performed By: #### C BC #### [facility] [address] [place] [address] Dr. Ludin Ward WBC 14.2 103/ul Critically high 4.0-11.0 [facility] Comment on above: Performed By: #### C BC #### [facility] [address] [place] [address] Dr. Ludin Ward PROF CHEM 8 (BAS METB)on Anion gap [Moles/Vol] 12.2 mmol/L Normal [facility] Comment on above: Performed By: #### C MADM, BMP #### [facility] [address] [place] [address] Dr. Ludin Ward Calcium [Mass/Vol] 10.2 mg/dL Critically high 8.5-10.1 [facility] Comment on above: Performed By: #### C MADM, BMP #### [facility] [address] [place] [address] Dr. Ludin Ward Chloride [Moles/Vol] 96 mmol/L Critically low 98-107 [facility] Comment on above: Performed By: #### C SHOBHAM, BMP #### [facility] [address] [address] [address] Ludin Ward CO2 [Moles/Vol] 28.8 mmol/L Normal 21.0-32.0 [facility] Comment on above: Performed By: #### C MADM, BMP #### [facility] [address] [address] [address] Ludin Ward Creatinine [Mass/Vol] 0.96 mg/dL Normal 0.55-1.02 [facility] Comment on above: Performed By: #### C MADM, BMP #### [facility] [address] [address] [address] Ludin Ward EGFR-AF MARTINIQUAIS >60 Normal >=60 [facility] Comment on above: Performed By: #### C MADM, BMP #### [facility] [address] [address] [address] Ludin Ward EGFR-NON AF MARTINIQUAIS 59 mL/min/1.73m2 Critically low >=60 [facility] Comment on above: Performed By: #### C MADM, BMP #### [facility] [address] [address] [address] Ludin Ward Glucose [Mass/Vol] 128 mg/dL Critically high 74-106 [facility] Comment on above: Performed By: #### C MADM, BMP #### [facility] [address] [address] [address] Ludin Ward Potassium [Moles/Vol] 3.0 mmol/L Critically low 3.5-5.1 [facility] Comment on above: Performed By: #### C MADM, BMP #### [facility] [address] [address] [address] Ludin Ward Sodium [Moles/Vol] 134 mmol/L Critically low 136-145 [facility] Comment on above: Performed By: #### C MADM, BMP #### [facility] [address] [address] [address] Ludin Ward Urea nitrogen [Mass/Vol] 25.0 mg/dL Critically high 7.0-18 .0 [facility] Comment on above: Performed By: #### C MADM, BMP #### [facility] [address] [place] [address] Dr. Ludin Ward Urea nitrogen/Creatinine [Mass ratio] 26.0 mg/mg Normal [facility] Comment on above: Performed By: #### C MADM, BMP #### [facility] [address] [place] [address] Dr. Ludin Ward CBC AUTO DIFFon 05-12-2022 BASO # 0.0 103/ul Normal 0.0-0.1 [facility] Comment on above: Performed By: #### C BC #### [facility] [address] [place] [address] Dr. Ludin Ward Basophils/100 WBC (Bld) 0.3 % Normal 0.2-2.0 [facility] Comment on above: Performed By: #### C BC #### [facility] [address] [place] [address] Dr. Ludin Ward EO # 0.1 103/ul Normal 0.0-0.7 [facility] Comment on above: Performed By: #### C BC #### [facility] [address] [place] [address] Dr. Ludin Ward Eosinophils/100 WBC (Bld) 1.2 % Normal 0.9-7.0 [facility] Comment on above: Performed By: #### C BC #### [facility] [address] [place] [address] Dr. Ludin Ward Erythrocyte distribution width (RBC) [Ratio] 13.2 % Normal 11.0-15.0 [facility] Comment on above: Performed By: #### C BC #### [facility] [address] [place] [address] Dr. Ludin Ward Hematocrit (Bld) [Volume fraction] 45.2 % Normal 36.0-48.0 [facility] Comment on above: Performed By: #### C BC #### [facility] [address] [place] [address] Dr. Ludin Ward Hemoglobin (Bld) [Mass/Vol] 14.6 g/dL Normal 12.0-16.0 [facility] Comment on above: Performed By: #### C BC #### [facility] [address] [place] [address] Dr. Ludin Ward IG # 0.03 10e3/ul Normal 0.00-0.03 [facility] Comment on above: Performed By: #### C BC #### [facility] [address] [place] [address] Dr. Ludin Ward IG % 0.3 % Normal 0.0-0.5 [facility] Comment on above: Performed By: #### C BC #### [facility] [address] [place] [address] Dr. Ludin Ward LYMPH # 2.2 103/ul Normal 1.2-3.8 [facility] Comment on above: Performed By: #### C BC #### [facility] [address] [place] [address] Dr. Ludin Ward Lymphocytes/100 WBC (Bld) 20.7 % Normal 20.5-60.0 [facility] Comment on above: Performed By: #### C BC #### [facility] [address] [place] [address] Dr. Ludin Ward MANUAL DIFF REQ NO Normal [facility] Comment on above: Performed By: #### C BC #### [facility] [address] [place] [address] Dr. Ludin Ward MCH (RBC) [Entitic mass] 28.0 pg Normal 26.7-34.0 [facility] Comment on above: Performed By: #### C BC #### [facility] [address] [place] [address] Dr. Ludin Ward MCHC (RBC) [Mass/Vol] 32.3 g/dL Normal 29.9-35.2 [facility] Comment on above: Performed By: #### C BC #### [facility] [address] [place] [address] Dr. Ludin Ward MCV (RBC) [Entitic vol] 86.8 fL Normal 81.0-99.0 [facility] Comment on above: Performed By: #### C BC #### [facility] [address] [address] [address] Ludin Ward MONO # 0.7 103/ul Normal 0.3-0.8 [facility] Comment on above: Performed By: #### C BC #### [facility] [address] [address] [address] Ludin Ward Monocytes/100 WBC (Bld) 6.9 % Normal 1.7-12.0 [facility] Comment on above: Performed By: #### C BC #### [facility] [address] [address] [address] Ludin Ward NEUT # 7.5 103/ul Critically high 1.4-6.5 [facility] Comment on above: Performed By: #### C BC #### [facility] [address] [place] [address] Dr. Ludin Ward Neutrophils/100 WBC (Bld) 70.6 % Normal 43.0-75.0 [facility] Comment on above: Performed By: #### C BC #### [facility] [address] [address] [address] Ludin Ward Platelet mean volume (Bld) [Entitic vol] 11.5 fL Normal 9.5-13.5 [facility] Comment on above: Performed By: #### C BC #### [facility] [address] [address] [address] Ludin Ward PLT 315 103/ul Normal 150-450 [facility] [facility] Comment on above: Performed By: #### C BC #### [facility] [address] [place] [address] Dr. Ludin Ward RBC 5.21 106/ul Normal 4.20-5.40 [facility] Comment on above: Performed By: #### C BC #### [facility] [address] [place] [address] Dr. Ludin Ward WBC 10.6 103/ul Normal 4.0-11.0 [facility] Comment on above: Performed By: #### C BC #### [facility] [address] [address] [address] Ludin Ward PROF 14(COMP METB)on 022 Albumin [Mass/Vol] 3.4 g/dL Normal 3.4-5.0 [facility] Comment on above: Performed By: #### C MP #### [facility] [address] [place] [address] Dr. Ludin Ward Albumin/Globulin [Mass ratio] 0.8 {ratio} Normal [facility] Comment on above: Performed By: #### C MP #### [facility] [address] [place] [address] Dr. Ludin Ward ALP [Catalytic activity/Vol] 72 U/L Normal 46-116 [facility] Comment on above: Performed By: #### C MP #### [facility] [address] [place] [address] Dr. Ludin Ward ALT [Catalytic activity/Vol] 37 U/L Normal 14-59 [facility] Comment on above: Performed By: #### C MP #### [facility] [address] [place] [address] Dr. Ludin Ward Anion gap [Moles/Vol] 11.2 mmol/L Normal [facility] Comment on above: Performed By: #### C MP #### [facility] [address] [place] [address] Dr. Ludin Ward AST [Catalytic activity/Vol] 22 U/L Normal 15-37 [facility] Comment on above: Performed By: #### C MP #### [facility] [address] [place] [address] Dr. Ludin Ward Bilirubin [Mass/Vol] 0.4 mg/dL Normal 0.2-1.0 [facility] Comment on above: Performed By: #### C MP #### [facility] [address] [place] [address] Dr. Ludin Ward Calcium [Mass/Vol] 9.6 mg/dL Normal 8.5-10.1 [facility] Comment on above: Performed By: #### C MP #### [facility] [address] [address] [address] Ludin Ward Chloride [Moles/Vol] 103 mmol/L Normal 98-107 [facility] Comment on above: Performed By: #### C MP #### [facility] [address] [address] [address] Ludin Ward CO2 [Moles/Vol] 27.6 mmol/L Normal 21.0-32.0 [facility] Comment on above: Performed By: #### C MP #### [facility] [address] [place] [address] Dr. Ludin Ward Creatinine [Mass/Vol] 0.83 mg/dL Normal 0.55-1.02 [facility] Comment on above: Performed By: #### C MP #### [facility] [address] [place] [address] Dr. Ludin Ward EGFR-AF MARTINIQUAIS >60 Normal >=60 [facility] Comment on above: Performed By: #### C MP #### [facility] [address] [address] [address] Ludin Ward EGFR-NON AF MARTINIQUAIS >60 Normal >=60 [facility] Comment on above: Performed By: #### C MP #### [facility] [address] [address] [address] Ludin Ward Globulin (S) [Mass/Vol] 4.5 g/dL Normal [facility] Comment on above: Performed By: #### C MP #### [facility] [address] [address] [address] Ludin Ward Glucose [Mass/Vol] 120 mg/dL Critically high 74-106 [facility] Comment on above: Performed By: #### C MP #### [facility] [address] [address] [address] Ludin Ward Potassium [Moles/Vol] 3.8 mmol/L Normal 3.5-5.1 [facility] Comment on above: Performed By: #### C MP #### [facility] [address] [place] [address] Dr. Ludin Ward Protein [Mass/Vol] 7.9 g/dL Normal 6.4-8.2 [facility] Comment on above: Performed By: #### C MP #### [facility] [address] [place] [address] Dr. Ludin Ward Sodium [Moles/Vol] 138 mmol/L Normal 136-145 [facility] Comment on above: Performed By: #### C MP #### [facility] [address] [place] [address] Dr. Ludin Ward Urea nitrogen [Mass/Vol] 16.0 mg/dL Normal 7.0-18.0 [facility] Comment on above: Performed By: #### C MP #### [facility] [address] [place] [address] Dr. Ludin Ward Urea nitrogen/Creatinine [Mass ratio] 19.3 mg/mg Normal [facility] Comment on above: Performed By: #### C MP #### [facility] [address] [place] [address] Dr. Ludin Ward CARDIAC CHRISTIANO ADMITon 022 CK [Catalytic activity/Vol] 114 U/L Normal 26-192 [facility] Comment on above: Performed By: #### C MADM, BMP #### [facility] [address] [place] [address] Dr. Ludin Ward CK.MB [Mass/Vol] 2.80 ng/mL Normal <=3.60 [facility] Comment on above: Performed By: #### C MADM, BMP #### [facility] [address] [place] [address] Dr. Ludin Ward HSTROP 104.9 pg/mL Critically high 4.0-51.3 [facility] Comment on above: Result Comment: CUT- OFF POINTS HAVE BEEN ESTABLISHED BASED ON THE FOURTH UNIVERSAL DEFINITIONS OF MYOCARDIAL INFARCTION. THE UPPER REFERENCE LIMIT (URL) OF TROPONIN, DEFINED THE 99TH PERCENTILE OF cTnI DISTRIBUTION IN A REFERENCE POPULATION, HAS BEEN CONFIRMED THE DECISION THRESHOLD FOR [place] DIAGNOSIS. Performed By: #### C MADM, BMP #### [facility] [address] [place] [address] Dr. Ludin Ward RODNEY 85 ng/mL Critically high 9-82 [facility] Comment on above: Performed By: #### C MADM, BMP #### [facility] [address] [place] [address] Dr. Ludin Ward CBC AUTO DIFFon 05-11-2022 BASO # 0.0 103/ul Normal 0.0-0.1 [facility] Comment on above: Performed By: #### C BC #### [facility] [address] [place] [address] Dr. Ludin Ward Basophils/100 WBC (Bld) 0.3 % Normal 0.2-2.0 [facility] Comment on above: Performed By: #### C BC #### [facility] [address] [place] [address] Dr. Ludin Ward EO # 0.0 103/ul Normal 0.0-0.7 [facility] Comment on above: Performed By: #### C BC #### [facility] [address] [place] [address] Dr. Ludin Ward Eosinophils/100 WBC (Bld) 0.4 % Critically low 0.9-7.0 [facility] Comment on above: Performed By: #### C BC #### [facility] [address] [place] [address] Dr. Ludin Ward Erythrocyte distribution width (RBC) [Ratio] 13.2 % Normal 11.0-15.0 [facility] Comment on above: Performed By: #### C BC #### [facility] [address] [place] [address] Dr. Ludin Ward Hematocrit (Bld) [Volume fraction] 46.6 % Normal 36.0-48.0 [facility] Comment on above: Performed By: #### C BC #### [facility] [address] [place] [address] Dr. Ludin Ward Hemoglobin (Bld) [Mass/Vol] 15.4 g/dL Normal 12.0-16.0 [facility] Comment on above: Performed By: #### C BC #### [facility] [address] [place] [address] Dr. Ludin Ward IG # 0.03 10e3/ul Normal 0.00-0.03 [facility] Comment on above: Performed By: #### C BC #### [facility] [address] [place] [address] Dr. Ludin Ward IG % 0.3 % Normal 0.0-0.5 [facility] Comment on above: Performed By: #### C BC #### [facility] [address] [place] [address] Dr. Ludin Ward LYMPH # 1.9 103/ul Normal 1.2-3.8 [facility] Comment on above: Performed By: #### C BC #### [facility] [address] [place] [address] Dr. Ludin Ward Lymphocytes/100 WBC (Bld) 18.9 % Critically low 20.5-60.0 [facility] Comment on above: Performed By: #### C BC #### [facility] [address] [place] [address] Dr. Ludin Ward MANUAL DIFF REQ NO Normal [facility] Comment on above: Performed By: #### C BC #### [facility] [address] [place] [address] Dr. Ludin Ward MCH (RBC) [Entitic mass] 28.7 pg Normal 26.7-34.0 [facility] Comment on above: Performed By: #### C BC #### [facility] [address] [place] [address] Dr. Ludin Ward MCHC (RBC) [Mass/Vol] 33.0 g/dL Normal 29.9-35.2 [facility] Comment on above: Performed By: #### C BC #### [facility] [address] [place] [address] Dr. Ludin Ward MCV (RBC) [Entitic vol] 86.8 fL Normal 81.0-99.0 [facility] Comment on above: Performed By: #### C BC #### [facility] [address] [place] [address] Dr. Ludin Ward MONO # 0.5 103/ul Normal 0.3-0.8 [facility] Comment on above: Performed By: #### C BC #### [facility] [address] [address] [address] Ludin Ward Monocytes/100 WBC (Bld) 5.2 % Normal 1.7-12.0 [facility] Comment on above: Performed By: #### C BC #### [facility] [address] [address] [address] Ludin Ward NEUT # 7.4 103/ul Critically high 1.4-6.5 [facility] Comment on above: Performed By: #### C BC #### [facility] [address] [place] [address] Dr. Ludin Ward Neutrophils/100 WBC (Bld) 74.9 % Normal 43.0-75.0 [facility] Comment on above: Performed By: #### C BC #### [facility] [address] [place] [address] Dr. Ludin Ward Platelet mean volume (Bld) [Entitic vol] 11.1 fL Normal 9.5-13.5 [facility] Comment on above: Performed By: #### C BC #### [facility] [address] [place] [address] Dr. Ludin Ward PLT 339 103/ul Normal 150-450 [facility] Comment on above: Performed By: #### C BC #### [facility] [address] [place] [address] Dr. Ludin Ward RBC 5.37 106/ul Normal 4.20-5.40 [facility] Comment on above: Performed By: #### C BC #### [facility] [address] [place] [address] Dr. Ludin Ward WBC 9.9 103/ul Normal 4.0-11.0 [facility] Comment on above: Performed By: #### C BC #### [facility] [address] [place] [address] HEAD WO CONon 05-11-2022 CT HEAD WO CON EXAMINATION: CT HEAD WO CON HISTORY: HEADACHE , dizziness, hypertension, tingling in hands COMPARISON: No relevant comparison available. TECHNIQUE: Axial CT images were obtained without IV contrast. Dose reduction techniques were achieved by using automated exposure control and/or adjustment of mA and/or kV according to patient size and/or use of iterative reconstruction technique. FINDINGS: BRAIN: No edema, hemorrhage, mass, acute infarction, or inappropriate atrophy. CSF SPACES: No hydrocephalus, subarachnoid hemorrhage, or mass. Appropriate for age. SKULL: No fracture, mass, or other significant visible lesion. SINUSES: No significant mucosal thickening or fluid on the limited views. ORBITS: No appreciable abnormality on the limited views. OTHER: Negative IMPRESSION: 1. Normal examination. Electronically authenticated by: TED LI Date: 2022-05-11 08:54 Normal [facility] Covid-19 PCR ([facility])on 04-21 SARS-CoV-2 (COVID-19) RNA MADELINE+probe Ql (Unsp spec) Not detected Normal NOT DETECTED [facility] Comment on above: Result Comment: When diagnostic testing is negative, the possibility of a false negative should be considered in the context of a patient's recent exposures and the presence of clinical signs and symptoms consistent with SARS-CoV-2. This test is not yet approved or cleared by the [place] FDA. When there are no FDA-approved or cleared tests available, and other criteria are met, FDA can make tests available under an emergency access mechanism called an Emergency Use Authorization (EUA). The EUA for this test is supported by the County Treasurer of Health and Human Service's declaration that circumstances exist to justify the emergency use of in vitro diagnostics for the detection and/or diagnosis of the virus that causes COVID-19. This EUA will remain in effect for the duration of the COVID-19 declaration justifying emergency of IVDs, unless it is terminated or revoked by the FDA (after which the test may no longer be used). Performed By: #### C [facility] #### [facility] [address] [place] [address] Dr. Ludin Ward ECHOCARDIO M/2D COMPLETEon 0 05-11-2022 ECHOCARDIO M/2D COMPLETE Patient: TESSIE SANTOS Exam Date: 05/11/2022 : 1960 Gender:F Ordering : DR SANTA QUEZADA . Admission #: [id number] Family : Order #: [id number] CLICK HERE TO VIEW EXAM ECHOCARDIOGRAM REPORT PROCEDURE: CARDIO PULMONARY ECHOCARDIO M/2D COMP INDICATIONS: Elevated TROP, hypertension COMPARISON: None. DESCRIPTION: COMPLETE ECHOCARDIOGRAM Real-time transthoracic echocardiography with 2D, M-mode, spectral and color flow Doppler performed. QUALITY: Technically difficult due to patients condition. LEFT VENTRICLE: Normal chamber size. Moderate concentric left ventricular hypertrophy. LV EF: Lower limits of normal left ventricular ejection fraction, (50-55%). DIASTOLIC: Grade I diastolic dysfunction. ATRIAL SEPTUM: LEFT ATRIUM: Moderate dilatation. RIGHT ATRIUM: Normal chamber size. RIGHT VENTRICLE: Normal chamber size. TRICUSPID VALVE: Normal mobility and thickness. No stenosis with no regurgitation. MITRAL VALVE: Normal mobility and thickness. No evidence of mitral valve stenosis. Mild mitral annular calcification. No mitral regurgitation. AORTIC VALVE: Normal trileaflet appearance. Mildly calcified aortic valve. Normal leaflet mobility. No evidence of aortic valve stenosis. No aortic regurgitation. AORTIC ROOT: Normal diameter and appearance. PULMONIC VALVE: Normal thickness and mobility. No stenosis. No regurgitation. PERICARDIUM: Small circumferential pericardial effusion. IVC: Collapses with inspirations. PLEURA: CONCLUSION: 1. Moderate concentric left ventricular hypertrophy. 2. Left ventricular systolic function is at the lower limits of normal. LVEF is 50 to 55%. 3. Grade 1 diastolic dysfunction. 4. Normal right ventricular size and systolic function. 5. No significant valvular dysfunction. 6. Small circumferential pericardial effusion. Adult Echocardiography Procedure Report Left Ventricle Left Atrium Mitral Valve Right Ventricle Aorta Aortic Valve Tricuspid Valve Pulmonic Valve Right Atrium Dictated by: Tate Gtz M.D. on 05/12/2022 at 17:39 Approved by: Tate Gtz M.D. on 05/12/2022 at 17:42 Normal [facility] ER URINE PROFILEon 2 Bilirubin Ql (U) Negative Normal NEGATIVE [facility] Comment on above: Performed By: #### C MREP #### [facility] [address] [place] [address] Dr. Ludin Ward Clarity (U) CLEAR Normal CLEAR [facility] Comment on above: Performed By: #### C MREP #### [facility] [address] [address] [address] Lduin Ward Color (U) LT. YELLOW Normal YELLOW [facility] Comment on above: Performed By: #### C MREP #### [facility] [address] [place] [address] Dr. Ludin HERRERA A micrscopic examination will be performed if indicated. Normal [facility] Comment on above: Performed By: #### C MREP #### [facility] [address] [place] [address] Dr. Ludin Ward Glucose Ql (U) Negative Normal NEGATIVE [facility] Comment on above: Performed By: #### C MREP #### [facility] [address] [place] [address] Dr. Ludin Ward Hemoglobin Ql (U) Negative Normal NEGATIVE [facility] Comment on above: Performed By: #### C MREP #### [facility] [address] [place] [address] Dr. Ludin Ward Ketones Ql (U) Negative Normal NEGATIVE [facility] Comment on above: Performed By: #### C MREP #### [facility] [address] [place] [address] Dr. Ludin Ward LEUKOCYTES Negative Normal NEGATIVE [facility] Comment on above: Performed By: #### C MREP #### [facility] [address] [place] [address] Dr. Ludin Ward Nitrite Ql (U) Negative Normal NEGATIVE [facility] Comment on above: Performed By: #### C MREP #### [facility] [address] [place] [address] Dr. Ludin Ward pH (U) 5.5 [pH] Normal 5-9 [facility] Comment on above: Performed By: #### C MREP #### [facility] [address] [place] [address] Dr. Ludin Ward SPEC GRAVITY <=1.005 Abnormal 1.005-<=1.02 5 [facility] Comment on above: Performed By: #### C MREP #### [facility] [address] [place] [address] Dr. Ludin Ward UA PROTEIN Negative Normal NEGATIVE/ TRACE [facility] Comment on above: Performed By: #### C MREP #### [facility] [address] [place] [address] Dr. Ludin Ward UR MICRO IND NOT INDICATED Normal [facility] Comment on above: Performed By: #### C MREP #### [facility] [address] [place] [address] Dr. Ludin Ward Urobilinogen Qn (U) 0.2 {Mago'U}/dL Normal 0.2 - 1. 0 [facility] Comment on above: Performed By: #### C MREP #### [facility] [address] [place] [address] Dr. Ludin Ward PROF 14(COMP METB)on 022 Albumin [Mass/Vol] 3.9 g/dL Normal 3.4-5.0 [facility] Comment on above: Performed By: #### C ROBYN, BMP #### [facility] [address] [place] [address] Dr. Ludin Ward Albumin/Globulin [Mass ratio] 0.8 {ratio} Normal [facility] Comment on above: Performed By: #### C ROBYN, BMP #### [facility] [address] [place] [address] Dr. Ludin Ward ALP [Catalytic activity/Vol] 75 U/L Normal 46-116 [facility] Comment on above: Performed By: #### C SHOBHAM, BMP #### [facility] [address] [place] [address] Dr. Ludin Ward ALT [Catalytic activity/Vol] 40 U/L Normal 14-59 [facility] Comment on above: Performed By: #### C SHOBHAM, BMP #### [facility] [address] [place] [address] Dr. Ludin Ward Anion gap [Moles/Vol] 14.3 mmol/L Normal [facility] Comment on above: Performed By: #### C MADM, BMP #### [facility] [address] [place] [address] Dr. Ludin Ward AST [Catalytic activity/Vol] 28 U/L Normal 15-37 [facility] Comment on above: Performed By: #### C ROBYN, BMP #### [facility] [address] [place] [address] Dr. Ludin Ward Bilirubin [Mass/Vol] 0.4 mg/dL Normal 0.2-1.0 [facility] Comment on above: Performed By: #### C ROBYN, BMP #### [facility] [address] [place] [address] Dr. Ludin Ward Calcium [Mass/Vol] 9.7 mg/dL Normal 8.5-10.1 [facility] Comment on above: Performed By: #### C ROBYN, BMP #### [facility] [address] [place] [address] Dr. Ludin Ward Chloride [Moles/Vol] 100 mmol/L Normal 98-107 [facility] Comment on above: Performed By: #### C ROBYN, BMP #### [facility] [address] [place] [address] Dr. Ludin Ward CO2 [Moles/Vol] 26.6 mmol/L Normal 21.0-32.0 [facility] Comment on above: Performed By: #### C ROBYN, BMP #### [facility] [address] [place] [address] Dr. Ludin Ward Creatinine [Mass/Vol] 0.87 mg/dL Normal 0.55-1.02 [facility] Comment on above: Performed By: #### C ROBYN, BMP #### [facility] [address] [place] [address] Dr. Ludin Ward EGFR-AF MARTINIQUAIS >60 Normal >=60 [facility] Comment on above: Performed By: #### C ROBYN, BMP #### [facility] [address] [place] [address] Dr. Ludin Ward EGFR-NON AF MARTINIQUAIS >60 Normal >=60 [facility] Comment on above: Performed By: #### C ROBYN, BMP #### [facility] [address] [place] [address] Dr. Ludin Ward Globulin (S) [Mass/Vol] 4.9 g/dL Normal [facility] Comment on above: Performed By: #### C ROBYN, BMP #### [facility] [address] [place] [address] Dr. Ludin Ward Glucose [Mass/Vol] 133 mg/dL Critically high 74-106 [facility] Comment on above: Performed By: #### C ROBYN, BMP #### [facility] [address] [place] [address] Dr. Ludin Ward Potassium [Moles/Vol] 3.9 mmol/L Normal 3.5-5.1 [facility] Comment on above: Performed By: #### C ROBYN, BMP #### [facility] [address] [place] [address] Dr. Ludin Ward Protein [Mass/Vol] 8.8 g/dL Critically high 6.4-8.2 [facility] Comment on above: Performed By: #### C ROBYN, BMP #### [facility] [address] [place] [address] Dr. Ludin Ward Sodium [Moles/Vol] 137 mmol/L Normal 136-145 [facility] Comment on above: Performed By: #### C ROBYN, BMP #### [facility] [address] [place] [address] Dr. Ludin Ward Urea nitrogen [Mass/Vol] 13.0 mg/dL Normal 7.0-18.0 [facility] Comment on above: Performed By: #### C ROBYN, BMP #### [facility] [address] [place] [address] Dr. Ludin Ward Urea nitrogen/Creatinine [Mass ratio] 14.9 mg/mg Normal [facility] Comment on above: Performed By: #### C ROBYN, BMP #### [facility] [address] [place] [address] Dr. Ludin Ward PROTIMEon 05-11-2022 INR Coag (PPP) [Relative time] 0.98 {INR} Normal [facility] Comment on above: Performed By: #### C MREP #### [facility] [address] [address] [address] Ludin Ward INR GUIDELINES SEE BELOW Normal [facility] Comment on above: Result Comment: MAT RED INR: 2.0 - 3.0 CONDITIONS NOT LISTED BELOW 2.5 - 3.5 FOR PROSTHETIC HEART VALVE REPLACEMENT 2.5 - 3.5 RECURRENT THROMBOSIS Performed By: #### C MREP #### [facility] [address] [address] [address] Ludin Ward PT Coag (PPP) [Time] 10.6 s Normal 9.0-11.6 [facility] Comment on above: Performed By: #### C MREP #### [facility] [address] [address] [address] Ludin Ward PTTon 05-11-2022 aPTT Coag (Bld) [Time] 31.8 s Normal 22.3-36.2 [facility] Comment on above: Performed By: #### C BC #### [facility] [address] [address] [address] Ludin Ward TROPONIN, HIGH SENSITIVITYon 05-11-2022 HSTROP 97.7 pg/mL Critically high 4.0-51.3 [facility] Comment on above: Result Comment: CUT- OFF POINTS HAVE BEEN ESTABLISHED BASED ON THE FOURTH UNIVERSAL DEFINITIONS OF MYOCARDIAL INFARCTION. THE UPPER REFERENCE LIMIT (URL) OF TROPONIN, DEFINED THE 99TH PERCENTILE OF cTnI DISTRIBUTION IN A REFERENCE POPULATION, HAS BEEN CONFIRMED THE DECISION THRESHOLD FOR [place] DIAGNOSIS. Performed By: #### C MREP #### [facility] [address] [place] [address] Dr. Ludin Ward XR CHEST 1 Von 05-11-2022 XR CHEST 1 V EXAMINATION: XR CHES T 1 V HISTORY: CHEST PAIN, UNSPECIFIED COMPARISON: No relevant comparison available. FINDINGS: LUNGS: Thin curvilinear opacity within lower left lung. VASCULATURE: No increased pulmonary vasculature. PLEURA: No pneumothorax, effusion, or pleural thickening. CARDIAC: No cardiomegaly or cardiac silhouette abnormality. MEDIASTINUM: No visible mass or adenopathy. BONES: No fracture or visible bone lesion. OTHER: Negative. IMPRESSION: 1. Trace amount of discoid atelectasis, or less likely infiltrate within left lung. Electronically authenticated by: TED LI Date: 2022-05-11 08:56 Normal [facility] Vital Signs Date Time Vital Sign Value Performing Clinician Facility 07-16-2023 10:21-0500 Diastolic blood pressure 78 mm[Hg] Kadeem Harrell MD Work Phone: [facility] 07-16-2023 10:21-0500 Systolic blood pressure 136 mm[Hg] Kadeem Harrell MD Work Phone: [facility] 07-16-2023 09:56-0500 Body height 162.6 cm Kadeem Harrell MD Work Phone: [facility] 07-16-2023 09:56-0500 Body mass index (BMI) [Ratio] 34.16 kg/m2 Kadeem Harrell MD Work Phone: [facility] 07-16-2023 09:56-0500 Body weight 90.27 kg Kadeem Harrell MD Work Phone: [facility] 07-16-2023 09:56-0500 Heart rate 88 /min Kadeem Harrell MD Work Phone: [facility] 01-12-2023 13:06-0400 Body height 162.56 cm Lorena Mcknight Work Phone: [facility] 250 DO Work Phone: 01-12-2023 13:06-0400 Body mass index (BMI) [Ratio] 31.58 kg/m2 Lorena Mcknight Work Phone: [facility] 250 DO Work Phone: 01-12-2023 13:06-0400 Body surface area Derived from formula 1.89 m2 Lorena Mcknight Work Phone: [facility] 250 DO Work Phone: 01-12-2023 13:06-0400 Body weight 83.46 kg Lorena T Defrance Work Phone: [facility] 250 DO Work Phone: 01-12-2023 13:06-0400 Diastolic blood pressure 80 mm[Hg] Lorena Huston Defrance Work Phone: [facility] 250 DO Work Phone: 01-12-2023 13:06-0400 Heart rate 72 /min Lorena Huston Defrance Work Phone: [facility] 250 DO Work Phone: 01-12-2023 13:06-0400 Systolic blood pressure 126 mm[Hg] Lorena Robel Defrance Work Phone: [facility] 250 DO Work Phone: 08-22-2022 12:39-0500 Body height 162.56 cm Lorena Huston Defrance Work Phone: [facility] 250 DO Work Phone: 08-22-2022 12:39-0500 Body mass index (BMI) [Ratio] 30.64 kg/m2 Lorena Huston Defrance Work Phone: [facility] 250 DO Work Phone: 08-22-2022 12:39-0500 Body surface area Derived from formula 1.86 m2 Lorena Robel Defrance Work Phone: [facility] 250 DO Work Phone: 08-22-2022 12:39-0500 Body weight 80.97 kg Lorena Huston Defrance Work Phone: [facility] 250 DO Work Phone: 08-22-2022 12:39-0500 Diastolic blood pressure 82 mm[Hg] Lorena Huston Defrance Work Phone: [facility] 250 DO Work Phone: 08-22-2022 12:39-0500 Heart rate 80 /min Lorena Huston Defrance Work Phone: [facility] 250 DO Work Phone: 08-22-2022 12:39-0500 Systolic blood pressure 138 mm[Hg] Lorena Huston Defrance Work Phone: [facility] 250 DO Work Phone: 08-22-2022 12:39-0500 4 1 Lorena Robel Defrance Work Phone: [facility] 250 DO Work Phone: Comment on above: PHQ-9 TS 08-08-2022 14:47-0500 Body height 162.56 cm MD Lorena Mcknight Work Phone: [facility] 08-08-2022 12:00-0500 Body temperature 97.8 [degF] MD Lorena Mcknight Work Phone: [facility] 08-08-2022 12:00-0500 Diastolic blood pressure 86 mm[Hg] MD Lorena Mcknight Work Phone: [facility] 08-08-2022 12:00-0500 Heart rate 74 /min MD Lorena Mcknight Work Phone: [facility] 08-08-2022 12:00-0500 Respiratory rate 18 /min MD Lorena Mcknight Work Phone: [facility] 08-08-2022 12:00-0500 SaO2% (BldA) [Mass fraction] 99 % MD Lorena Mcknight Work Phone: [facility] 08-08-2022 12:00-0500 Systolic blood pressure 153 mm[Hg] MD Lorena Mcknight Work Phone: [facility] 08-08-2022 05:24-0500 Body weight 80.5 kg MD Lorena Mcknight Work Phone: [facility] Encounters Encounter Date Encounter Type Care Provider Facility Start: 10-24-2023 Refill [facility] Start: 09-16-2023 Refill Lorena samuels MD Work Phone: [facility] Start: 08-21-2023 Refill Lorena samuels MD Work Phone: [facility] Start: 07-16-2023 End: 07-16-[address] [facility] Start: 07-16-2023 End: 07-16-2023 Office outpatient visit 25 minutes Kadeem Harrell MD Work Phone: 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); Hypertension, benign; Mixed hyperlipidemia; History of PTCA; Obesity (BMI 30.0-34.9) Start: 01-12-2023 Office outpatient vi sit 15 minutes Lorena Mcknight Work Phone: [facility] 250 DO Work Phone: Start: 09-05-[address] RAFITA ROSE [facility] Facility:[facility]1 Start: 08-22-2022 Patient encounter procedure [facility]cknight [facility] Work Phone: Start: 08-22-2022 ambulatory LAINA Hussein y: Start: 08-05-2022 ambulatory Kadeem Harrell II Facility:[id number] Start: 08-04-2022 ambulatory Kadeem Harrell II Faci lity:[id number] Start: 08-04-2022 End: 08-08-2022 Evaluation and management of inpatient Siri Tabares Facility:[facility] Start: 08-04-2022 End: 08-08-2022 Evaluation and management of inpatient MD Lorena Mcknight Work Phone: [facility] [place] [facility] Start: 08-03-2022 End: 08-04-[address] LORENA MCKNIGHT Facility:[facility]1 Start: 07-04-2022 End: 07-04-[address] LORENA MCKNIGHT Facility:[facility]1 Start: 05-21-2022 End: 05-21-[address] LORENA MCKNIGHT Facility:[facility]1 Start: 05-11-2022 End: 05-12-[address] LORENA MCKNIGHT Facility:[facility]1 Procedures Date Procedure Procedure Detail Performing Clinician Start: 07-16-2023 History of percutane ous transluminal coronary angioplasty History of PTCA Kadeem Harrell MD Work Phone: Start: 06-18-2023 Adult depression scr eening assessment Lorena Mcknight MD Work Phone: Start: 08-07-2022 CL LHC & COR Angio MD Miller avimaria dolores Defrance Work Phone: Start: 08-07-2022 CL Stent 1st Vessel LAD PRIYA MD Lorena Mcknight Work Phone: Start: 08-07-2022 MD Lorena Miller efrance Work Phone: Start: 08-04-2022 Doppler ultrasonogra phy of bilateral carotid arteries MD Lorena Mcknight Work Phone: Cardiac catheterization Sami maria dolores Huston Defrance Work Phone: section Lorena sawyer Work Phone: Operative procedure on knee Lorena Mcknight Work Phone: SARS Antigen (LFIA) MD Lorena Mcknight Work Phone: NEGATED: Highlighted row has not occurred! Colonoscopy Lorena Mcknight Work Phone: Plan of Treatment Date Care Activity Detail Author Start: 06-18-2024 Adult BMI Screening Adult BMI Screening [facility] Start: 06-18-2024 Depression Screening Depression Screening [facility] Start: 06-18-2024 Tobacco Screening Tobacco Screening [facility] Start: 04-29-2024 End: 04-29-2024 Patient encounter procedure 04/29/2024 9:40 AM EDT Office Visit [facility] [address] [facility] [address] [place] [id number] Kadeem Harrell MD [address] [facility] [address] [address] [place] [address] [facility] Start: 12-17-2023 End: 12-17-2023 Patient encounter procedure 12/17/2023 2:15 PM EDT Office Visit [facility] [address] [phone] Lorena Mcknight MD [address] [place] [address] [facility] Start: 04-20-2023 Influenza vaccination [facility] Start: 01-12-2023 FUV, Provider: Kadeem Harrell, Status: Pen, Time: 1:30 PM FUV, Provider: Kadeem Harrell, Status: Pen, Time: 1:30 PM [facility] 250 DO Work Phone: Start: 08-08-2022 [facility] Start: 08-07-2022 Hospital admission [facility] Start: 08-07-2022 [facility] Start: 08-04-2022 Hospital admission [facility] Start: 2012 Administration of varicella zoster vaccine Zoster (Shingles) Vaccine (1 of 2) [facility] Start: 2012 Zoster Vaccines (1 of 2) Zoster Vaccines (1 of 2) [facility] Start: 2002 Screening for malignant neoplasm of breast Mammogram [facility] Start: 1984 DTaP/Tdap/Td Vaccines (1 - Tdap) DTaP/Tdap/Td Vaccines (1 - Tdap) [facility] Start: 1983 Screening for malignant neoplasm of cervix [facility] Start: 1981 DTaP,Tdap and Td Vaccines (1 - Tdap) DTaP,Tdap and Td Vaccines (1 - Tdap) [facility] Start: 1980 Adult BMI Follow Up Plan Adult BMI Follow Up Plan [facility] Start: 1980 Hepatitis C screening Hepatitis C Screening [facility] Start: 1968 Pneumococcal Vaccine: Pediatrics (0 to 5 Years) and At-Risk Patients (6 to 64 Years) (1 - PCV) Pneumococcal Vaccine: Pediatrics (0 to 5 Years) and At-Risk Patients (6 to 64 Years) (1 - PCV) [facility] Start: 1963 MMR Vaccines (1 of 1 - Standard series) MMR Vaccines (1 of 1 - Standard series) [facility] Start: 01-30-1963 COVID-19 Vaccine (#1) COVID-19 Vaccine (#1) [facility] Start: 1962 HIV screening HIV Screening [facility] Start: 1962 Lipid panel Lipid Panel [facility] Start: 1962 Screening for malignant neoplasm of colon [facility] Start: 1962 Yearly Adult Physical Yearly Adult Physical [facility] Patient Education Coronary Angio plasty (DC) Coronary Stenting (DC) Angina (DC) Chest Pain (DC) Drug Eluting Stents [facility] Work Phone: Patient referral [facility] Work Phone: Payers Date Payer Category Payer Private Health Insurance [id number] 2023 Private Health Insurance [id number] 2022 Self-pay 1960 Unknown [id number] 2.16. [id number] 1960 Unknown [id number] 2.16. [id number] 1962 Unknown [id number] 2.16. [id number] 1962 Unknown [id number] 2.16.84 [id number] 1962 Unknown [id number] 2.16.84 [id number] 1962 Unknown [id number] 2.16.84 [id number] 1962 Unknown [id number] 2.16.84 [id number] 1962 Unknown [id number] 2.16.84 [id number] 1962 Unknown [id number] 2.16.8 [id number] 1959 Private Health Insurance [id number] Unknown [employer] Unknown [id number] 2.16.8 [id number] Social History Date Type Detail Facility Start: 05-18-2022 End: 08-05-2022 Tobacco smoking status NHIS Ex-smoker (finding) [facility] Start: 06-18-2023 End: 07-11-2023 History of tobacco use [facility] Start: 1960 Sex Assigned At Female [facility] Start: 06-18-2023 End: 07-11-2023 No caffeine use No caffeine use [facility] History of tobacco use Current smoker [facility] Work Phone: History of tobacco use Cigarette Smoker [facility] Work Phone: Start: 05-18-2022 End: 07-16-2023 Tobacco use and exposure Smokeless tobacco non-user [facility] Work Phone: Start: 07-16-2023 Alcohol intake Lifetime non-d jazmyn (finding) [facility] Work Phone: Start: 1960 Sex Assigned At Not on file [facility] Work Phone: Start: 06-18-2023 Alcohol intake Current drinke r of alcohol (finding) [facility] Adolescent depressio n screening assessment 0 [facility] Start: 05-18-2022 Alcohol Comment rarely [facility] Equipment Procedure Code Equipment Code Equipment Origin al Text Equipment Identifier Dates Drug-eluting coronary artery stent, [id number]-coated [id number] FDA Start: 08-07-2022 Goals Date Patient Goal Desired Activity /State Functional Status Date Assessment Result Facility 08-08-2022 Functional status Patient at Baseline [facility] Work Phone: Mental Status Date Assessment Result Facility 08-08-2022 Cognitive function Cognitive Sta tus Patient at Baseline [facility] Work Phone: Clinical Notes 08-04-2022 to 09-16-2023 Telephone Encounter - Angelica Penn LPN - 09/16/2023 12:46 PM ESTTelephone Encounter - Angelica Penn LPN - 09/16/2023 12:46 PM Andres Harrell MD - 07/16/2023 9:40 AM ESTPatient Instructions Note Date & Type Note Facility 09-16-2023 Miscellaneous Notes Keena requesting refill of Metoprolol documented in this encounter [facility] 09-16-2023 Telephone encounter Note Keena requesting refill of Metoprolol [facility] 07-16-2023 History of Presen t illness Narrative Subjective Tessie Santos is a 62 y.o. female Chief Complaint Follow-up HPI Remembers anginal pain Still in cardiac rehab Patient returns in follow-up of problems as noted. Its been about a year since her coronary events. She has had no recurrence of symptoms and continues to be very aerobically active participating in cardiac rehab. We discussed the cessation of Effient therapy in about 6 weeks and she understands what to do. Other risk factors appear to be adequately managed. Because of this we otherwise suggest no other adjustments in therapy Review of Systems All other systems reviewed and are negative. Visit Vitals BP 148/90 (BP Location: Left arm, Patient Position: Sitting) Pulse 88 Ht 1.626 m (5' 4 ) Wt 90.3 kg (199 lb) BMI 34.16 kg/m Smoking Status Former BSA 2.02 m Objective Physical Exam Constitutional: Appearance: Normal appearance. She is normal weight. HENT: Nose: Nose normal. Neck: Vascular: No carotid bruit. Cardiovascular: Rate and Rhythm: Normal rate. Pulses: Normal pulses. Heart sounds: Normal heart sounds. Pulmonary: Effort: Pulmonary effort is normal. Abdominal: General: Bowel sounds are normal. Palpations: Abdomen is soft. Genitourinary: Rectum: Normal. Musculoskeletal: General: Normal range of motion. Cervical back: Normal range of motion. Right lower leg: No edema. Left lower leg: No edema. Skin: General: Skin is warm and dry. Neurological: General: No focal deficit present. Mental Status: She is alert. Psychiatric: Mood and Affect: Mood normal. Behavior: Behavior normal. Thought Content: Thought content normal. Judgment: Judgment normal. Current Medications Current Outpatient Medications: aspirin 81 mg EC tablet, Take 1 tablet (81 mg) by mouth once daily., Disp: , Rfl: atorvastatin (Lipitor) 20 mg tablet, Take 1 tablet (20 mg) by mouth once daily at bedtime., Disp: , Rfl: hydrOXYzine HCL (Atarax) 25 mg tablet, Take 1 tablet (25 mg) by mouth 4 times a day., Disp: , Rfl: losartan-hydrochlorothiazide (Hyzaar) 100-25 mg tablet, Take 1 tablet by mouth once daily., Disp: , Rfl: metoprolol tartrate (Lopressor) 25 mg tablet, Take 1 tablet (25 mg) by mouth 2 times a day., Disp: , Rfl: nitroglycerin (Nitrostat) 0.4 mg SL tablet, Place 1 tablet (0.4 mg) under the tongue every 5 minutes if needed for chest pain., Disp: , Rfl: prasugrel (Effient) 10 mg tablet, Take 1 tablet (10 mg) by mouth once daily., Disp: , Rfl: Assessment/Plan 1. Coronary artery disease involving holy cross coronary artery of holy cross heart without angina pectoris With emergent intervention and resolution of symptoms. No interval recurrence of symptomatology 2. Hypertension, benign Good control on present therapy 3. Mixed hyperlipidemia Good control on present therapy 4. History of PTCA Original diagnosis was associated with a coronary event. Now stable. 5. Obesity (BMI 30.0-34.9) The merits of diet and exercise were advocated documented in this encounter [facility] Work Phone: 07-16-2023 Instructions [place] MA - 07/16/2023 9:40 AM EST Please bring all medicines, vitamins, and herbal supplements with you when you come to the office. Prescriptions will not be filled unless you are compliant with your follow up appointments or have a follow up appointment scheduled as per instruction of your physician. Refills should be requested at the time of your visit. documented in this encounter [facility] Work Phone: 08-08-2022 Progress note Note Date/Time August 08, 2022 9:42am [facility] [address] [place] [address] Hospitalist Progress Note Signed Patient: Tessie Santos MR#: [id number] : 1960 Acct:[id number] Age/Sex: 62 / F Adm Date: 2 Loc: Room: [address] [place] [address] Type: ADM IN Attending Dr: Jaylene Aguilar DO Copies to: ~ Date of Service: 08/08/2022 Subjective Subjective Narrative: See discharge summary Exam Physical Exam Vital Signs: Temp Pulse Resp BP Pulse Ox O2 Del Method 97.9 F 74 18 163/85 H 99 Room Air 08/08/22 08:00 08/08/22 08:00 08/08/22 08:00 08/08/22 08:00 08/08/22 08:00 08/08/22 08:00 Narrative: CONSTITUTIONAL: No apparent distress, alert, oriented HEAD: Normocephalic, atraumatic EYES: EOMI, pupils equal and reactive, conjunctiva normal RESPIRATORY: No distress, lungs clear bilaterally, symmetric chest rise, no wheezes/rales/rhonchi CARDIOVASCULAR: Regular rate and regular rhythm, no murmurs, symmetric palpable radial and dorsalis pedis pulses ABDOMEN: Soft, non-tender, non-distended, normal bowel sounds SKIN: Intact, no rash, no trauma NEURO: Cranial nerves grossly intact, no focal neurologic signs PSYCHIATRIC: Normal affect Objective Lab Results CBC & Chem 7: 08/06/22 06:24 08/07/22 06:15 Meds Allergies and Active Meds Allergies No Known Allergies Allergy (Verified 08/04/22 18:55) Active Meds: Active Medications Generic Name Dose Route Start Last Admin Trade Name Freq PRN Reason Stop Dose Admin Acetaminophen 650 mg 08/04/22 17:30 08/08/22 05:07 Acetaminophen 325 Mg Tablet PO 08/04/23 17:29 650 mg Q4H PRN Administration Pain Scale 1 - 5 Aspirin 81 mg 08/05/22 09:00 08/08/22 08:07 Aspirin 81 Mg Tablet.Dr PO 08/05/23 08:59 81 mg DAILY PERRY Administration Atorvastatin Calcium 20 mg 08/05/22 21:00 08/07/22 20:39 Atorvastatin 20 Mg Tablet PO 08/05/23 20:59 20 mg QPM PERRY Administration Atropine Sulfate 1 mg 08/07/22 17:19 Atropine Sulfate 1 Mg/10 Ml Syringe IV-PUSH ONCE PRN Symptomatic Bradycardia Docusate Sodium 200 mg 08/04/22 17:30 Docusate 100 Mg Capsule PO 08/04/23 17:29 BID PRN Constipation Enoxaparin Sodium 40 mg 08/05/22 12:00 08/06/22 10:07 Enoxaparin 40 Mg/0.4 Ml Syringe SUBCUT 08/05/23 11:59 40 mg DAILY@1000 PERRY Administration HCTZ/Losartan Potassium 1 tab 08/07/22 09:00 08/08/22 09:17 Losartan/Hctz 50-12.5mg 1 Tab Tablet PO 08/07/23 08:59 1 tab DAILY PERRY Administration Hydralazine HCl 10 mg 08/04/22 17:30 Hydralazine 20 Mg/Ml Vial IV-PUSH 08/04/23 17:29 Q4H PRN if SBP > 185 Hydroxyzine Pamoate 25 mg 08/04/22 20:20 08/07/22 20:39 Hydroxyzine Pamoate 25 Mg Capsule PO 25 mg Q6HR PRN Administration anxiety Dextrose/Sodium Chloride 1,000 mls @ 100 mls/hr 08/07/22 06:00 08/08/22 05:03 5 % Dextrose-0.45 % Nacl IV 08/07/23 05:59 Not Given .Q10H PERRY Sodium Chloride 250 mls @ 999 mls/hr 08/07/22 17:19 0.9% Sodium Chloride 250 Ml IV 08/07/23 17:18 PRN PRN Hypotension Metoprolol Tartrate 25 mg 08/04/22 21:00 08/08/22 08:07 Metoprolol Tartrate 25 Mg Tablet PO 08/04/23 20:59 25 mg BID PERRY Administration Nitroglycerin 1 each 08/07/22 17:00 08/07/22 19:36 Nitroglycerin Patch 0.1 Mg/Hr 1 Each Patch.Td24 TRANSDERML 08/06/23 16:59 Not Given DAILY@1700 PERRY Ondansetron HCl 4 mg 08/06/22 14:53 Ondansetron 4 Mg/2 Ml Vial IV-PUSH 08/06/23 14:52 Q6H PRN Nausea And Vomiting Potassium Chloride 40 meq 08/06/22 18:17 Potassium Chloride Er 20 Meq Tab.Er.Prt PO STAT PRN Hypokalemia Prasugrel 10 mg 08/08/22 09:00 08/08/22 08:07 Prasugrel 10 Mg Tablet PO 08/08/23 08:59 10 mg DAILY PERRY Administration A&P - Hospitalist Assessment/Plan (1) Unstable angina: (2) Chest pain: (3) Abnormal stress test: (4) Orthostatic hypotension: Documented By: Zara Cuevas DO, RES 08/08/22 0 940 Signed By: <Electronically signed by DO CARLY Cuevas> 08/08/22 1040 <Electronically signed by Jaylene Aguilar DO> 08/08/22 1247 [facility] Work Phone: 1(519) 703-279112-20-2022 Discharge summary Author Jaylene Aguilar [facility] August 08, 2022 12:46pm Note Date/Time August 08, 2022 12:46pm [facility] [address] [place] [address] Discharge Summary Signed Patient: Tessie Santos MR#: [id number] : 1960 Acct:[id number] Age/Sex: 62 / F Adm Date: 2 Loc: Room: 7H0016-[address]: Jaylene Aguilar DO Copies to: MD Jaylene Omalley, DO~ Providers Date of Discharge: 08/08/22 Discharging Provider: Jaylene Aguilar Primary Care Provider: Lorena Mcknight Consults: 08/04/22 17:31 Consult to Cardiology Routine Discharge Diagnosis (1) Unstable angina: (2) Chest pain: (3) Abnormal stress test: (4) Orthostatic hypotension: Final Diagnosis Final Discharge Diagnosis: 5. Percutaneous coronary intervention to the left anterior descending artery 6. Paresthesias Summary Hospital Course Hospital course: This patient is a 62-year-old female who presented to the emergency department on 08/04/2022 with a chief complaint of chest pain and a reported abnormal stress test as an outpatient. In light of these findings she was admitted to the [facility] for further management and treatment. She was continued on daily aspirin and provided therapeutic Lovenox. Ultimately she was taken for cardiac catheterization on 08/07/[address] Pelayo. This revealed significant high-grade stenosis in the mid LAD threatening both LAD territory as well as thecollateralization from the LAD which supplies her RCA, chronically occluded. She subsequently underwent PCI to the mid LAD and prescribed dual antiplatelet therapy with aspirin and prasugrel. Furthermore the patient reported some unilateral paresthesias to the admitting physician earlier during her stay. These have resolved and seem to be a transient finding. An MRI was ordered however after further discussion with the patient she really does not want to have this performed and in theory if it did reveal a small ischemic area she ultimately would be placed on dual antiplatelet therapy as she already is on. Subsequently I agreed to cancel her MRI but explained that she should discuss any more concerning neurologic findings such as unilateral weakness, paresthesias, slurred speech, migraines or facial droop with her PCP and may need referral to neurology. At this time her vital signs remained stable and she will be discharged home. Physical Examination: GENERAL APPEARANCE: Alert, up in bed AAOx3 HEENT: NCAT, MMM NECK: Neck soft w/o masses, no JVD CARDIAC: Normal S1 and S2. No S3, S4 or murmurs. LUNGS: Clear to auscultation bilaterally. no wheeze/rhonchi/rales ABDOMEN: Positive bowel sounds. Soft, nontender. No guarding or signs of an acute abdomen MUSCULOSKELETAL: No joint erythema or tenderness. EXTREMITIES: No clubbing, cyanosis or edema PSYCHIATRIC: Appropriate mood and affect 35 minutes were spent coordinating the discharge of this patient. Time Spent with Patient Time spent providing/coordinating discharge services (# min): 35 Surgeries and Procedures Operation Date: 08/07/22 09:05 Actual Procedures p CL LHC & COR Angio - Maynor Pelayo MD p CL Stent 1st Vessel LAD PRIYA - Maynor Pelayo MD Diagnostic Studies Completed and Pending Studies Pending studies at discharge: 08/07/22 17:19 CPR cardiac rehab ed Routine Labs on day of discharge: 08/08/22 05:00: Troponin I High Sens 75 H* Exam Physical Exam Vital Signs: Temp Pulse Resp BP Pulse Ox O2 Del Method 97.8 F 74 18 153/86 H 99 Room Air 08/08/22 12:00 08/08/22 12:00 08/08/22 12:00 08/08/22 12:00 08/08/22 12:00 08/08/22 12:00 Discharge Plan Discharge Plan Additional Instructions: DISCHARGE INSTRUCTIONS FOR ANGIOPLASTY/CORONARY/PERIPHERAL/STENT IMPLANT FOR ADULT ANTICOAGULATION -Since the greatest risk of a blood clot forming with the stent occurs in the first 2-3 weeks after implantation, you will need to take anticoagulants for at least 12-18 months. ANTICOAGULATION MEDICATION Aspirin 81mg once a day, Prasugrel (Effient) 10mg once a day once a day STATIN MEDICATION Atorvastatin (Lipitor) 20 mg Drug-Eluting Stent (PRIYA) DO NOT discontinue Effient/Aspirin during the first few months regardless of what you are advised by your family doctor or pharmacist, without first calling the insurance account specialist who implanted the stent. If you require pain relief during this time, please take only ACETAMINOPHEN (TYLENOL)- NO additional aspirin or ibuprofen. DISCHARGE ACTIVITIES ARE FOLLOWS: First week after discharge: -Take it easy at home, no strenuous activity. -Do not lift or pull objects over 10-15 pounds, including children, and groceries for four weeks. If puncture site is at wrist do NOT lift more than three pounds for three days. - May walk up stairs. -May shower. -No excessive scrubbing of the affected site (groin). -May ride in car. -May resume sexual intercourse after 1-2 weeks. -No MRI for 12 days. -May drive in 4-7 days. -If puncture site is at the wrist do not manipulate the wrist for 24 hours, and no soaking wrist for three days. Second Week: -May take a bath -May start walking 3 times a week for 15-20 minutes at a leisurely pace. You should be able to carry on a conversation comfortably without feeling winded. -No strenuous activity as in jogging, running, weight lifting, stair steppers, etc. until the insurance account specialist approves these activities. Check with the insurance account specialist on your first follow-up visit. CALL YOUR PHYSICIAN at [phone]: -If bleeding should occur from the catheter insertion site- apply pressure to the site then immediately call us. -Report any fever, redness, drainage, increased swelling, or firmness at the catheter insertion site. Some bruising or slight swelling may be present at thetime of discharge. -Should arm or leg become cold, numb, white, or blue, contact the insurance account specialist immediately. -IF you should experience episodes of angina, e.g. chest discomfort, heaviness, tightness, pressure burning with or without radiation to the neck, jaw, arms or back- use 1 Nitrostat tablet under your tongue every 5-10 minutes and up to three tablets. IF NO RELIEF, CALL 911 or GO TO THE NEAREST EMERGENCY ROOM. -Please notify our office if you have recurrent angina. -[Cardiac Rehab Education Provided. Participation in the Cardiopulmonary Rehabilitation program is recommended. Please call Central Scheduling at [phone] to schedule your appointment.] The attending insurance account specialist or [facility] nurse clinician should provide you with specific instructions regarding activity, diet, medications, and further follow up for you. Follow the medication instructions provided on your discharge. If the dosages and instructions on this sheet differ from the dosage and instructions on the bottle, follow the instructions on the bottle. [facility] information provided by the patient during their visit. Do not stop your medications without consulting your health care provider. Please take the list with you to your next doctor's appointment. Instructions: Coronary Angioplasty (DC), Coronary Stenting (DC), Angina (DC), Chest Pain (DC), Drug Eluting Stents Prescriptions: New atorvastatin 20 mg Tablet 20 mg PO QPM 30 Days Qty: 30 12RF aspirin 81 mg Tablet,Delayed Release (Dr/Ec) 81 mg PO DAILY Qty: 0 0RF prasugrel 10 mg Tablet 10 mg PO DAILY 30 Days Qty: 30 12RF nitroglycerin 0.4 mg tablet, sublingual 0.4 mg sublingual Q5M PRN (Reason: chest pain) 30 Days Qty: 25 3RF Rx Instructions: do not exceed 3 doses per episode Continued losartan-hydrochlorothiazide 100-25 mg tablet 1 tab PO DAILY hydroxyzine HCl 25 mg tablet 25 mg PO Q6HR PRN (Reason: anxiety) metoprolol tartrate 25 mg tablet 25 mg PO BID Follow Up: Denita Lizama APRN [Nurse Practitioner] - 08/22/22 12:30 pm Documented By: Jalyene Aguilar DO 08/08/22 12 37 Signed By: <Electronically signed by Jaylene Aguilar DO> 08/08/22 1246 [facility] Work Phone: 1(114) 296-206112-20-2022 Hospital Discharge instructions Additional Instructions DISCHARGE INSTRUCTIONS FOR ANGIOPLASTY/CORONARY/PERIPHERAL/STENT IMPLANT FOR ADULT ANTICOAGULATION -Since the greatest risk of a blood clot forming with the stent occurs in the first 2-3 weeks after implantation, you will need to take anticoagulants for at least 12-18 months. ANTICOAGULATION MEDICATION Aspirin 81mg once a day, Prasugrel (Effient) 10mg once a day once a day STATIN MEDICATION Atorvastatin (Lipitor) 20 mg Drug-Eluting Stent (PRIYA) DO NOT discontinue Effient/Aspirin during the first few months regardless of what you are advised by your family doctor or pharmacist, without first calling the insurance account specialist who implanted the stent. If you require pain relief during this time, please take only ACETAMINOPHEN (TYLENOL)- NO additional aspirin or ibuprofen. DISCHARGE ACTIVITIES ARE FOLLOWS: First week after discharge: -Take it easy at home, no strenuous activity. -Do not lift or pull objects over 10-15 pounds, including children, and groceries for four weeks. If puncture site is at wrist do NOT lift more than three pounds for three days. - May walk up stairs. -May shower. -No excessive scrubbing of the affected site (groin). -May ride in car. -May resume sexual intercourse after 1-2 weeks. -No MRI for 12 days. -May drive in 4-7 days. -If puncture site is at the wrist do not manipulate the wrist for 24 hours, and no soaking wrist for three days. Second Week: -May take a bath -May start walking 3 times a week for 15-20 minutes at a leisurely pace. You should be able to carry on a conversation comfortably without feeling winded. -No strenuous activity as in jogging, running, weight lifting, stair steppers, etc. until the insurance account specialist approves these activities. Check with the insurance account specialist on your first follow-up visit. CALL YOUR PHYSICIAN at [phone]: -If bleeding should occur from the catheter insertion site- apply pressure to the site then immediately call us. -Report any fever, redness, drainage, increased swelling, or firmness at the catheter insertion site. Some bruising or slight swelling may be present at the time of discharge. -Should arm or leg become cold, numb, white, or blue, contact the insurance account specialist immediately. -IF you should experience episodes of angina, e.g. chest discomfort, heaviness, tightness, pressure burning with or without radiation to the neck, jaw, arms or back- use 1 Nitrostat tablet under your tongue every 5-10 minutes and up to three tablets. IF NO RELIEF, CALL 911 or GO TO THE NEAREST EMERGENCY ROOM. -Please notify our office if you have recurrent angina. -[Cardiac Rehab Education Provided. Participation in the Cardiopulmonary Rehabilitation program is recommended. Please call Central Scheduling at [phone] to schedule your appointment.] The attending insurance account specialist or [facility] nurse clinician should provide you with specific instructions regarding activity, diet, medications, and further follow up for you. Follow the medication instructions provided on your discharge. If the dosages and instructions on this sheet differ from the dosage and instructions on the bottle, follow the instructions on the bottle. [facility] is not responsible for incorrect prescription information provided by the patient during their visit. Do not stop your medications without consulting your health care provider. Please take the list with you to your next doctor's appointment.[facility] Work Phone: 1(206) 389-363312-20-2022 Progress note Author Maynor Pelayo [facility] August 08, 2022 9:31am Note Date/Time August 08, 2022 9:13am [facility] [address] [place] [id number] Cardiology Progress Note Signed Patient: Tessie Santos MR#: [id number] : 1960 Acct:[id number] Age/Sex: 62 / F Adm Date: 2 Loc: Room: [address] [place] [address] Type: ADM IN Attending Dr: Jaylene Aguilar DO Copies to: ~ Date of Service: 08/08/2022 Subjective Principal diagnosis: NSTEMI s/p PCI mLAD Interval history: Rajwinder is doing very well this morning. She had an uneventful night. Her HemoBand on the right wrist came off without incident. Wrist looks good this morning. No pain in the right wrist some mild ecchymoses. No chest pain or other anginal symptoms. Patient is quite anxious to leave the hospital. We hada discussion this morning about lifestyle changes and the importance of medical compliance and cardiac rehab after LAD PCI. Exam Physical Exam Vital Signs: Temp Pulse Resp BP Pulse Ox O2 Del Method 97.9 F 74 18 163/85 H 99 Room Air 08/08/22 08:00 08/08/22 08:00 08/08/22 08:00 08/08/22 08:00 08/08/22 08:00 08/08/22 08:00 Objective Labs CBC & Chem 7: 08/06/22 06:24 08/07/22 06:15 Labs: Laboratory Results - last 24 hr 08/08/22 05:00 Troponin I High Sens 75 H* A&P - Cardiology (1) Unstable angina: Assessment/Problem Details: Resolved status post PCI to mid LAD Code(s): I20.0 - Unstable angina Status: Acute (2) Abnormal stress test: Assessment/Problem Details: Indicative of what is been diagnosed as multivessel coronary disease based on yesterday's cardiac catheterization. Code(s): R94.39 - Abnormal result of other cardiovascular function study Status: Acute (3) Essential hypertension: Assessment/Problem Details: On medical therapy. Good control. Code(s): I10 - Essential (primary) hypertension Status: Acute (4) Hyperlipidemia: Assessment/Problem Details: Untreated. Code(s): E78.5 - Hyperlipidemia, unspecified Status: Acute (5) Acute coronary syndrome: Assessment/Problem Details: Now doing well after PCI to mid LAD with PRIYA x1 in the setting of a non-STEMI. Coronary angiography revealed CHORAL DIRECTOR of the right coronary artery well collateralized primarily from lateral collateral flow from septal perforating branches and apical branches of the LAD. PCI of the mid LAD therefore again back to vascular territories: LAD and RCA. The patient is clinically stable and ready for discharge to home today Code(s): I24.9 - Acute ischemic heart disease, unspecified Status: Acute Plan 1. Okay for discharge to home today 2. Dual antiplatelet therapy with aspirin and prasugrel for 1 month followed bythe balance of 6 to 12 months of dual antiplatelet therapy with aspirin and clopidogrel 3. Initiate statin therapy with Lipitor 20 mg nightly with co-Q10 supplementation 300 mg daily 4. Continue home dosing of metoprolol tartrate 25 mg twice daily as well as losartan hydrochlorothiazide 1 tablet daily 5. No lifting greater than equal to 10 pounds for 5 days with the right arm 6. We will arrange outpatient follow-up in [facility] within 2 weeks. From there we will plan for outpatient referral to phase 2 monitored cardiac rehabilitation. Time spent with patient Time Spent With Patient (min): 30 Documented By: Maynor Pelayo MD 08/08/22910 Signed By: <Electronically signed by Maynor Pelayo MD> 08/08/2231 [facility] Work Phone: 1(585) 599-840912-19-2022 Progress note Author Jaylene Aguilar [facility] August 07, 2022 3:53pm Note Date/Time August 07, 2022 10:47am [facility] [address] [place] [address] Hospitalist Progress Note Signed Patient: Tessie Santos MR#: [id number] : 1960 Acct:[id number] Age/Sex: 62 / F Adm Date: 2 Loc: Room: [address] [place] [address] Type: ADM IN Attending Dr: Jaylene Aguilar DO Copies to: ~ Date of Service: 08/07/2022 Subjective Subjective Narrative: No acute events overnight. Awaiting cardiac cath procedure today. She is concerned about brain MRI that was ordered yesterday after talking with Dr. Vidal. States she is less dizzy today, chest pain is better, only complains of mild chest pressure. Exam Physical Exam Vital Signs: Temp Pulse Resp BP Pulse Ox O2 Del Method 97.8 F 93 H 18 155/85 H 97 Room Air 08/07/22 08:10 08/07/22 08:10 08/07/22 08:10 08/07/22 08:10 08/07/22 08:10 08/07/22 08:10 Narrative: CONSTITUTIONAL: No apparent distress, alert, oriented HEAD: Normocephalic, atraumatic EYES: EOMI, pupils equal and reactive, conjunctiva normal RESPIRATORY: No distress, lungs clear bilaterally, symmetric chest rise, no wheezes/rales/rhonchi CARDIOVASCULAR: Regular rate and regular rhythm, no murmurs, symmetric palpable radial and dorsalis pedis pulses ABDOMEN: Soft, non-tender, non-distended, normal bowel sounds SKIN: Intact, no rash, no trauma NEURO: Cranial nerves grossly intact, no focal neurologic signs PSYCHIATRIC: Anxious Objective Lab Results CBC & Chem 7: 08/06/22 06:24 08/07/22 06:15 Microbiology Results Microbiology 08/06/22 18:47 Nasal SARS Antigen (LFIA) - Final Meds Allergies and Active Meds Allergies No Known Allergies Allergy (Verified 08/04/22 18:55) Active Meds: Active Medications Generic Name Dose Route Start Last Admin Trade Name Duane PRN Reason Stop Dose Admin Acetaminophen 650 mg 08/04/22 17:30 08/07/22 06:28 Acetaminophen 325 Mg Tablet PO 08/04/23 17:29 650 mg Q4H PRN Administration Pain Scale 1 - 5 Aspirin 81 mg 08/05/22 09:00 08/07/22 08:11 Aspirin 81 Mg Tablet. PO 08/05/23 08:59 81 mg DAILY PERRY Administration Atorvastatin Calcium 20 mg 08/05/22 21:00 08/06/22 20:45 Atorvastatin 20 Mg Tablet PO 08/05/23 20:59 20 mg QPM PERRY Administration Docusate Sodium 200 mg 08/04/22 17:30 Docusate 100 Mg Capsule PO 08/04/23 17:29 BID PRN Constipation Enoxaparin Sodium 40 mg 08/05/22 12:00 08/06/22 10:07 Enoxaparin 40 Mg/0.4 Ml Syringe SUBCUT 08/05/23 11:59 40 mg DAILY@1000 PERRY Administration HCTZ/Losartan Potassium 1 tab 08/07/22 09:00 Losartan/Hctz 50-12.5mg 1 Tab Tablet PO 08/07/23 08:59 DAILY [facility] Hydralazine HCl 10 mg 08/04/22 17:30 Hydralazine 20 Mg/Ml Vial IV-PUSH 08/04/23 17:29 Q4H PRN if SBP > 185 Hydroxyzine Pamoate 25 mg 08/04/22 20:20 08/07/22 06:28 Hydroxyzine Pamoate 25 Mg Capsule PO 25 mg Q6HR PRN Administration anxiety Dextrose/Sodium Chloride 1,000 mls @ 100 mls/hr 08/07/22 06:00 08/07/22 07:43 5 % Dextrose-0.45 % Nacl IV 08/07/23 05:59 100 mls/hr .Q10H PERRY Administration Metoprolol Tartrate 25 mg 08/04/22 21:00 08/07/22 08:11 Metoprolol Tartrate 25 Mg Tablet PO 08/04/23 20:59 25 mg BID PERRY Administration Miscellaneous Information 1 each 08/06/22 18:17 Consult To Pharmacy MISCELLANE 08/06/23 18:16 .PHACONSULT PRN ZZ.Pharmacy Consult Protocol Nitroglycerin 1 each 08/07/22 17:00 Nitroglycerin Patch 0.1 Mg/Hr 1 Each Patch.Td24 TRANSDERML 08/06/23 16:59 DAILY@1700 [facility] Ondansetron HCl 4 mg 08/06/22 14:53 Ondansetron 4 Mg/2 Ml Vial IV-PUSH 08/06/23 14:52 Q6H PRN Nausea And Vomiting Potassium Chloride 40 meq 08/06/22 18:17 Potassium Chloride Er 20 Meq Tab.Er.Prt PO STAT PRN Hypokalemia A&P - Hospitalist Assessment/Plan (1) Unstable angina: (2) Chest pain: (3) Abnormal stress test: (4) Orthostatic hypotension: Plan Chest pain, elevated troponins, abnormal stress test July 20, 2020 with abnormal stress test EKG with T wave inversions in lateral leads, unchanged since admission Troponin 26 upon admission Cardiology following, plan for cath 08/07 Lightheadedness/orthostatic hypotension Blood pressure medications adjusted Dizziness improved with these adjustments Still denies vertigo sensation, no neurologic dysfunction Brain MRI ordered by previous provider, may be more appropriate outpatient if atall given improvement of symptoms with adjustment of blood pressure medication Chronic conditions: Anxiety, hypertension DVT prophylaxis: Enoxaparin Diet: N.p.o. until after cath procedure CODE STATUS: Full Attending attestation: I personally saw and examined patient at the bedside today. Case was discussed and coordinated in conjunction with resident Dr. Cuevas. Patient has an MRI ordered. I explained to her that her unilateral symptoms are concerning for possible TIA/CVA however if the patient gets a stentand is placed on aspirin and Plavix this would be the treatment for any underlying ischemic event neurologically as well. Will await results of catheterization Documented By: Zara Cuevas DO, CARLY 08/07/22 1 041 Signed By: <Electronically signed by DO CARLY Cuevas> 08/07/22 1352 <Electronically signed by Jaylene Aguilar DO> 08/07/22 3683 [facility] Work Phone: 1(282) 491-508712-19-2022 Procedure [facility]12-19-2022 Procedure [facility]12-18-2022 Progress note Author Jade Vidal [facility] August 06, 2022 2:58pm Note Date/Time August 06, 2022 2:58pm [facility] [address] [place] [address] Hospitalist Progress Note Signed Patient: Tessie Santos MR#: [id number] : 1960 Acct:[id number] Age/Sex: 62 / F Adm Date: 2 Loc: Room: [address] [place] [address] Type: ADM IN Attending Dr: Jade Vidal MD Copies to: ~ Date of Service: 08/06/2022 Subjective Subjective Narrative: Patient has been seen and examined. She denies any chest pain but has some discomfort. Also she complains of dizziness/lightheadedness which reoccurred today again. Per patient is worse when she stands up but even sitting as of now in the chair she still complains of lightheadedness. She denies any tingling any numbness any focal weakness in extremities. No reported vision problem Physical exam: General -awake, alert, oriented ?3, not in acute distress Cardiovascular -S1 with S2, no murmurs, no rubs, no gallops Pulmonary - clear to auscultation bilaterally Gastrointestinal - abdomen is soft, nondistended, nontender, bowel sounds positive, there is no rigidity, no rebound Extremities -no edema Neurological -able to move all extremity Telemetry reviewed, no arrhythmias noted, remained in normal sinus rhythm Exam Physical Exam Vital Signs: Temp Pulse Resp BP Pulse Ox O2 Del Method 36.4 C L 72 18 118/73 95 Room Air 08/06/22 08:00 08/06/22 11:28 08/06/22 11:28 08/06/22 11:28 08/06/22 11:28 08/06/22 11:28 Objective Lab Results CBC & Chem 7: 08/06/22 06:24 08/06/22 06:24 Meds Allergies and Active Meds Allergies No Known Allergies Allergy (Verified 08/04/22 18:55) Active Meds: Active Medications Generic Name Dose Route Start Last Admin Trade Name Adalidq PRN Reason Stop Dose Admin Acetaminophen 650 mg 08/04/22 17:30 08/06/22 10:07 Acetaminophen 325 Mg Tablet PO 08/04/23 17:29 650 mg Q4H PRN Administration Pain Scale 1 - 5 Aspirin 81 mg 08/05/22 09:00 08/06/22 08:07 Aspirin 81 Mg Tablet.Dr PO 08/05/23 08:59 81 mg DAILY PERRY Administration Atorvastatin Calcium 20 mg 08/05/22 21:00 08/05/22 20:10 Atorvastatin 20 Mg Tablet PO 08/05/23 20:59 20 mg QPM PERRY Administration Docusate Sodium 200 mg 08/04/22 17:30 Docusate 100 Mg Capsule PO 08/04/23 17:29 BID PRN Constipation Enoxaparin Sodium 40 mg 08/05/22 12:00 08/06/22 10:07 Enoxaparin 40 Mg/0.4 Ml Syringe SUBCUT 08/05/23 11:59 40 mg DAILY@1000 PERRY Administration HCTZ/Losartan Potassium 2 tab 08/05/22 12:00 08/06/22 08:07 Losartan/Hctz 50-12.5mg 1 Tab Tablet PO 08/05/23 11:59 2 tab DAILY PERRY Administration Hydralazine HCl 10 mg 08/04/22 17:30 Hydralazine 20 Mg/Ml Vial IV-PUSH 08/04/23 17:29 Q4H PRN if SBP > 185 Hydroxyzine Pamoate 25 mg 08/04/22 20:20 08/06/22 06:08 Hydroxyzine Pamoate 25 Mg Capsule PO 25 mg Q6HR PRN Administration anxiety Metoprolol Tartrate 25 mg 08/04/22 21:00 08/06/22 08:06 Metoprolol Tartrate 25 Mg Tablet PO 08/04/23 20:59 25 mg BID PERRY Administration Nitroglycerin 0.5 inch 08/04/22 17:35 08/06/22 08:07 Nitroglycerin 2% Oint Packet TRANSDERML 08/04/23 17:34 0.5 inch BID PERRY Administration Ondansetron HCl 4 mg 08/06/22 14:53 Ondansetron 4 Mg/2 Ml Vial IV-PUSH 08/06/23 14:52 Q6H PRN Nausea And Vomiting A&P - Hospitalist Assessment/Plan (1) Chest pain: Plan 1. Chest pain with abnormal troponins, questionable unstable angina On July 20 stress test was noted to be abnormal For now continue with aspirin and Nitropaste and beta-blockers Repeated EKG showed T wave inversions in lateral leads I and aVL which are unchanged since admission Serial enzymes minimally elevated but flat Cardiology consult, plan for cardiac cath on Sunday 2 Recently diagnosed hypertension continue with home medications. Restart ARB's 3. DVT prophylaxis 4. Tingling in the right upper and lower extremity, resolved CT scan of the head without acute findings, carotid ultrasound mild plaque formation bilaterally right internal carotid artery less than 70%, left internalcarotid artery less than 50%. Continue with statins and aspirin Reported dizziness, however patient describes it as lightheadedness. She deniesany vertigo sensation. She denies any other focal neurological dysfunction. But in view of transient tingling of the upper extremity as well as dizziness/lightheadedness I will get MRI of the brain Check orthostatic test, telemetry no significant tacky or bradycardia arrhythmias. Blood pressure remained stable The patient care was discussed with the patient and the patient's family at the bedside all questions answered 5. Leukocytosis, without any active signs of infection, resolved Documented By: Jade Vidal MD 08/06/22 1456 Signed By: <Electronically signed by Jade Vidal MD> 08/06/22 5571 [facility] Work Phone: 1(312) 339-148512-18-2022 Progress note Author Maynor Pelayo [facility] August 06, 2022 2:47pm Note Date/Time August 06, 2022 2:47pm [facility] [address] [place] [address] Cardiology Progress Note Signed Patient: Tessie Santos MR#: [id number] : 1960 Acct:[id number] Age/Sex: 62 / F Adm Date: 2 Loc: Room: [address] [place] [address] Type: ADM IN Attending Dr: Jade Vidal MD Copies to: ~ Date of Service: 08/06/2022 Subjective Principal diagnosis: NSTEMI Interval history: Rajwinder is doing well this morning. She denies any current or active chest pain. She is little anxious about cardiac catheterization tomorrow. No new complaintsat this time. Exam Physical Exam Vital Signs: Temp Pulse Resp BP Pulse Ox O2 Del Method 97.5 F L 72 18 118/73 95 Room Air 08/06/22 08:00 08/06/22 11:28 08/06/22 11:28 08/06/22 11:28 08/06/22 11:28 08/06/22 11:28 Objective Labs CBC & Chem 7: 08/06/22 06:24 08/06/22 06:24 Labs: Laboratory Results - last 24 hr 08/06/22 08/06/22 06:24 06:24 Corrected WBC 10.3 Uncorrected WBC Count 10.3 RBC 4.71 Hgb 13.3 Hct 40.4 MCV 85.8 MCH 28.3 MCHC 33.0 RDW 13.6 Plt Count 314 MPV 9.0 Neut % (Auto) 61.2 Lymph % (Auto) 29.8 [place] % (Auto) 7.1 Eos % (Auto) 1.4 Baso % (Auto) 0.5 Nucleat RBC Rel Count 0.1 Neut # (Auto) 6.3 Lymph # (Auto) 3.1 [place] # (Auto) 0.7 Eos # (Auto) 0.1 Baso # (Auto) 0.0 PHA Creatinine Clear 67.85 Sodium 137 Potassium 4.1 Chloride 102 Carbon Dioxide 28.8 Anion Gap 10.3 BUN 21 Creatinine 0.91 Est GFR ( Amer) > 60 Est GFR (Non-Af Amer) > 60 Glucose 95 Calcium 9.1 A&P - Cardiology (1) Unstable angina: Assessment/Problem Details: Patient has had basically unstable angina with a stuttering infarct over the course of the last 3 months. N.p.o. after midnight with plans for cardiac catheterization tomorrow. Code(s): I20.0 - Unstable angina Status: Acute (2) Abnormal stress test: Assessment/Problem Details: Her stress test is diagnostic for coronary disease. The extent and severity andnature are undetermined. Because of her presentation and unstable nature she should remain hospitalized Code(s): R94.39 - Abnormal result of other cardiovascular function study Status: Acute (3) Essential hypertension: Assessment/Problem Details: On medical therapy. Good control. Code(s): I10 - Essential (primary) hypertension Status: Acute (4) Hyperlipidemia: Assessment/Problem Details: Untreated. Code(s): E78.5 - Hyperlipidemia, unspecified Status: Acute (5) Acute coronary syndrome: Assessment/Problem Details: Patient's presentation is consistent with acute coronary syndrome. That in combination with a abnormal stress test suggest she should stay in the hospital until angiographic evaluation and intervention could be undertaken. Code(s): I24.9 - Acute ischemic heart disease, unspecified Status: Acute Plan Guideline directed therapy. Coronary angiography with possible PCI Sunday. Time spent with patient Time Spent With Patient (min): 30 Documented By: Maynor Pelayo MD 08/06/221443 Signed By: <Electronically signed by Maynor Pelayo MD> 08/06/221446 [facility] Work Phone: 1(176) 786-264012-17-2022 Progress note Author Jade Vidal [facility] August 05, 2022 3:40pm Note Date/Time August 05, 2022 12:23pm [facility] [address] [place] [address] Hospitalist Progress Note Signed Patient: Tessie Santos MR#: [id number] : 1960 Acct:[id number] Age/Sex: 62 / F Adm Date: 2 Loc: 3T Room: [address] [place] [address] Type: ADM IN Attending Dr: Jade Vidal MD Copies to: ~ Date of Service: 08/05/2022 Subjective Subjective Narrative: Patient has been seen and examined. After nitroglycerin paste was placed, chestpain significantly improved Physical exam: General -awake, alert, oriented ?3, not in acute distress Cardiovascular -S1 with S2, no murmurs, no rubs, no gallops Pulmonary - clear to auscultation bilaterally Gastrointestinal - abdomen is soft, nondistended, nontender, bowel sounds positive, there is no rigidity, no rebound Extremities -no edema Neurological -no focal neurological dysfunction noted Telemetry reviewed, no arrhythmias noted Exam Physical Exam Vital Signs: Temp Pulse Resp BP Pulse Ox O2 Del Method 36.6 C 71 18 164/83 H 98 Room Air 08/05/22 08:00 08/05/22 11:28 08/05/22 11:28 08/05/22 11:28 08/05/22 11:28 08/05/22 11:28 Objective Lab Results CBC & Chem 7: 08/05/22 05:57 08/05/22 09:04 Meds Allergies and Active Meds Allergies No Known Allergies Allergy (Verified 08/04/22 18:55) Active Meds: Active Medications Generic Name Dose Route Start Last Admin Trade Name Freq PRN Reason Stop Dose Admin Acetaminophen 650 mg 08/04/22 17:30 Acetaminophen 325 Mg Tablet PO 08/04/23 17:29 Q4H PRN Pain Scale 1 - 5 Aspirin 81 mg 08/05/22 09:00 08/05/22 08:02 Aspirin 81 Mg Tablet. PO 08/05/23 08:59 81 mg DAILY PERRY Administration Atorvastatin Calcium 20 mg 08/05/22 21:00 Atorvastatin 20 Mg Tablet PO 08/05/23 20:59 QPM PERRY Docusate Sodium 200 mg 08/04/22 17:30 Docusate 100 Mg Capsule PO 08/04/23 17:29 BID PRN Constipation Enoxaparin Sodium 40 mg 08/05/22 12:00 08/05/22 11:19 Enoxaparin 40 Mg/0.4 Ml Syringe SUBCUT 08/05/23 11:59 40 mg DAILY@1000 PERRY Administration HCTZ/Losartan Potassium 2 tab 08/05/22 12:00 08/05/22 11:18 Losartan/Hctz 50-12.5mg 1 Tab Tablet PO 08/05/23 11:59 Not Given DAILY PERRY Hydralazine HCl 10 mg 08/04/22 17:30 Hydralazine 20 Mg/Ml Vial IV-PUSH 08/04/23 17:29 Q4H PRN if SBP > 185 Hydroxyzine Pamoate 25 mg 08/04/22 20:20 08/05/22 11:19 Hydroxyzine Pamoate 25 Mg Capsule PO 25 mg Q6HR PRN Administration anxiety Metoprolol Tartrate 25 mg 08/04/22 21:00 08/05/22 08:02 Metoprolol Tartrate 25 Mg Tablet PO 08/04/23 20:59 25 mg BID PERRY Administration Nitroglycerin 0.5 inch 08/04/22 17:35 08/05/22 08:02 Nitroglycerin 2% Oint Packet TRANSDERML 08/04/23 17:34 0.5 inch BID PERRY Administration A&P - Hospitalist Assessment/Plan (1) Chest pain: Plan 1. Chest pain with abnormal troponins, questionable unstable angina On July 20 stress test was noted to be abnormal For now continue with aspirin and Nitropaste and beta-blockers Repeated EKG showed T wave inversions in lateral leads I and aVL which are unchanged since yesterday Serial enzymes minimally elevated but flat Cardiology consult, plan for cardiac cath on Sunday 2 Recently diagnosed hypertension continue with home medications. Restart ARB's 3. DVT prophylaxis 4. Tingling in the right upper and lower extremity, resolved CT scan of the head without acute findings, carotid ultrasound mild plaque formation bilaterally right internal carotid artery less than 70%, left internalcarotid artery less than 50%. Patient will need to follow-up as outpatient. Continue with statins 5. Leukocytosis, without any active signs of infection, check urinalysis Documented By: Jade Vidal MD 08/05/22 1220 Signed By: <Electronically signed by Jade Vidal MD> 08/05/22 3879 [facility] Work Phone: [phone] 631-615912-17-2022 Consult note Author Kadeem Harrell [facility] August 05, 2022 10:47am Note Date/Time August 05, 2022 10:47am [facility] [address] [place] [address] Cardiology Consult Note Signed Patient: Tessie Santos MR#: [id number] : 1960 Acct:[id number] Age/Sex: 62 / F Adm Date: 2 Loc: Room: [address] [place] [address] Type: ADM IN Attending Dr: Jade Vidal MD Copies to: MD Jade Omalley MD William Patrick McGuinn, MD~ Cardiology HPI History of Present Illness Consult Date: 08/05/22 Reason for Consult: Chest pain HPI: Ms. Santos is a 62 year old female seen for the above. She has been having problems with chest pain off and on since April. She actually was hospitalized several times for the symptoms at [facility]. Both times her troponins were elevated. Ultimately her primary care recommendedstress testing and this was done. The results apparently suggested an inferior defect. It sounds like an infarct with shubham-infarct ischemia. This is an outside study and the results are not available except for the comments in the notes as per admission history and physical She acknowledges a history of hypertension. She is a former smoker. Father hadcoronary disease. She is nondiabetic. Lipid status unknown. Advised her that in view of her journey which has been somewhat protracted andprolonged in the absence of a diagnosis or any definitive action that she shouldstay in the hospital until we had the opportunity to perform an angiogram and possible intervention. I am concerned that her multiple presentations with elevated troponins are indicative of an age-indeterminate infarct is not been correctly addressed. I believe the present time her medical therapy should be continued and I will confer with interventional cardiology. We will plan an angiographic evaluation Sunday unless an opportunity opens up on the weekend. She is to stay in the hospital until then. [facility] Vaccinated for COVID-19?: Unknown Medical History (Updated 08/05/22 @ 10:46 by Kadeem Harrell MD) Anxiety Hypertension Social History Smoking Status: Former smoker Tobacco Type: cigarettes Substance Use Type: None Meds Medications and Allergies Allergies No Known Allergies Allergy (Verified 08/04/22 18:55) Home Medications hydroxyzine HCl 25 mg tablet 25 mg PO Q6HR PRN anxiety 08/04/22 [History Confirmed 08/04/22] losartan 100 mg-hydrochlorothiazide 25 mg tablet 1 tab PO DAILY 08/04/22 [History Confirmed 08/04/22] metoprolol tartrate 25 mg tablet 25 mg PO BID 08/04/22 [History Confirmed 08/04/22] Exam Physical Exam Vital Signs: Temp Pulse Resp BP Pulse Ox O2 Del Method 97.8 F 75 18 166/84 H 98 Room Air 08/05/22 08:00 08/05/22 08:02 08/05/22 08:00 08/05/22 08:02 08/05/22 08:00 08/05/22 08:00 HEENT Head: normal to inspection Ears: hearing grossly normal bilaterally Nose: external nose normal and nares normal Face and sinus: normal facial exam Mouth: oral mucosae normal and tongue normal Eyes Conjunctivae: conjunctivae normal Sclera: sclerae normal Neck Neck: normal visual inspection Carotids: normal carotid upstroke Lymphatic: no lymphadenopathy noted Chest Chest palpation & inspection: normal inspection of the chest Resp Effort & Inspection: normal respiratory effort Auscultation: clear to auscultation bilaterally Cardio Rate: regular rate Rhythm: regular rhythm Heart Sounds: S1 normal and S2 normal GI Inspection: normal to inspection Palpation: soft Skin General: no rashes or lesions noted Neuro General: patient alert, patient awake and patient oriented x3 Cognition: normal cognition Motor: muscle tone normal throughout Sensory Exam: no sensory deficits noted Results Labs CBC & CMP: 08/05/22 05:57 08/05/22 09:04 Lab results: Lipids 08/05/22 Range/Units 05:57 Triglycerides 133 (35-149) mg/dL Cholesterol 170 (140-200) mg/dL HDL Cholesterol 44 (35-85) mg/dL Cholesterol/HDL Ratio 3.9 (<5.0) CBC 08/05/22 Range/Units 05:57 RBC 4.53 (3.60-5.00) X10E6/uL Hgb 12.9 (11.8-15.4) g/dL Hct 38.5 (34.0-46.4) % Plt Count 324 (150-450) x10E3/uL Neut # (Auto) 10.6 H (1.8-7.7) x10E3/uL Lymph # (Auto) 4.0 (1.00-4.8) x10E3/uL [place] # (Auto) 0.8 (0.0-0.8) x10E3/uL Eos # (Auto) 0.0 (0.0-0.45) x10E3/uL Baso # (Auto) 0.1 (0.0-0.2) x10E3/uL Comprehensive Metabolic Panel 08/05/22 08/05/22 Range/Units 05:57 09:04 Sodium 138 (136-146) mmol/L Potassium 3.5 (3.5-5.1) mmol/L Chloride 103 (95-114) mmol/L Carbon Dioxide 27.6 (22.0-30.0) mmol/L BUN 22 (9-23) mg/dL Creatinine 0.90 (0.44-1.03) mg/dL Glucose 90 (70-100) mg/dL Calcium 8.9 (8.2-10.2) mg/dL Intake and Output 08/04/22 08/05/22 08/05/22 23:59 07:59 15:59 Intake Total 400 / 400 100 / 100 Balance 400 / 400 100 / 100 Intake: Oral 400 / 400 100 / 100 Other: # Unmeasured Voids 3 2 # Bowel Movements 0 Weight 81.647 kg 81.6 kg Date of Last Bowel Movement 08/04/22 08/04/22 Patient Weight 08/05/22 23:59 Weight 81.6 kg A&P - Cardiology (1) Unstable angina: Assessment/Problem Details: Patient has had basically unstable angina with a stuttering infarct over the course of the last 3 months. Code(s): I20.0 - Unstable angina (2) Abnormal stress test: Assessment/Problem Details: Her stress test is diagnostic for coronary disease. The extent and severity andnature are undetermined. Because of her presentation and unstable nature she should remain hospitalized Code(s): R94.39 - Abnormal result of other cardiovascular function study (3) Essential hypertension: Assessment/Problem Details: On medical therapy. Good control. Code(s): I10 - Essential (primary) hypertension (4) Hyperlipidemia: Assessment/Problem Details: Untreated. Code(s): E78.5 - Hyperlipidemia, unspecified (5) Acute coronary syndrome: Assessment/Problem Details: Patient's presentation is consistent with acute coronary syndrome. That in combination with a abnormal stress test suggest she should stay in the hospital until angiographic evaluation and intervention could be undertaken. Code(s): I24.9 - Acute ischemic heart disease, unspecified Plan Guideline directed therapy. Coronary angiography. Documented By: Kadeem Harrell MD [id number] Signed By: <Electronically signed by MD Kadeem Harrell> 08/05/22 1047 [facility] Work Phone: [phone]) 834-279812-16-2022 History and physical note Author Jade Vidal [facility] August 04, 2022 6:28pm Note Date/Time August 04, 2022 6:02pm [facility] [address] [place] [address] Hospitalist H&P Signed Patient: Tessie Santos MR#: [id number] : 1960 Acct:[id number] Age/Sex: 62 / F Adm Date: 2 Loc: Room: [address] [place] [address] Type: ADM IN Attending Dr: Jade Vidal MD Copies to: MD Jade Omalley MD~ HPI DATE OF EXAMINATION: 08/04/22 CHIEF COMPLAINT: Abnormal stress test/chest pain HISTORY OF PRESENT ILLNESS: 62 years old female, who is relatively healthy, just recently diagnosed hypertension, currently taking blood pressure medications and aspirin has been complaining of chest pains for couple of weeks. This is the third time she was presenting to outside emergency room. Outpatient stress test was ordered which was done on July 20. Per physician report it showed inferolateral infarct with moderate amount of shubham- infarct ischemia. Inferior perfusion defect with normal wall motion likely related to soft tissue artifact. Ventricular ejectionfraction 56%. No ischemic changes on EKG with poor exercise functional capacity.. Patient was scheduled to see insurance account specialist as outpatient on August 24. However she continued to have intermittent chest pains. Its at rest and with activity. Usually lasting about 5 to 10 minutes. Its not associated with any other symptoms apart from dizziness. But today she did have some right upper extremity tingling and right lower extremity tingling. She came to emergency room. I did obtain report from inpatient physician. The patient was admitted to the hospital. Upon further evaluation it was decided to transfer the patientfor possible cardiac catheterization. Reported troponins were noted to be in 62and 50 range. EKG without acute findings. I did see the patient on the floor. She appeared to be quite stable. She stillhad some chest discomfort but very mild. She denied any shortness of breath anysweating any dizziness any lower extremity swelling. She never had history of coronary artery disease. EKG was done which showed normal sinus rhythm with ventricular rate 73, QTc 469, with T wave inversions asymmetrical in [address] elevation Evaluation in outside emergency room X-ray sodium 139 potassium 3.8 chloride 101 bicarbonate 28 glucose 141 BUN 26 creatinine 0.9 liver enzymes normal CBC 10 hemoglobin [address] scan of the head without contrast no acute abnormality chest x-ray no acute findings Abnormal myocardial perfusion study showing inferolateral infarct with moderate amount of shubham-infarct ischemia. Inferior perfusion defect with normal wall motion likely related to soft tissue artifact. Ventricular ejection fraction 56%. No ischemic changes on EKG with poor exercise functional capacity. Review of Systems Review of Systems Review of systems: 10 systems are reviewed and are negative apart from as mentioned in H&P PMFSH Vaccinated for COVID-19?: Unknown Medical History (Updated 08/04/22 @ 18:27 by Jade Vidal MD) Anxiety Hypertension Social History Smoking Status: Former smoker Tobacco Type: cigarettes Substance Use Type: None Meds Medications and Allergies Home Medications hydroxyzine HCl 25 mg tablet 25 mg PO Q6HR PRN anxiety 08/04/22 [History Confirmed 08/04/22] losartan 100 mg-hydrochlorothiazide 25 mg tablet 1 tab PO DAILY 08/04/22 [History Confirmed 08/04/22] metoprolol tartrate 25 mg tablet 25 mg PO BID 08/04/22 [History Confirmed 08/04/22] Exam Physical Exam Vital Signs: Temp Pulse Resp BP Pulse Ox O2 Del Method 36.7 C 79 16 141/72 H 97 Room Air 08/04/22 17:18 08/04/22 17:18 08/04/22 17:18 08/04/22 17:18 08/04/22 17:18 08/04/22 17:18 Narrative: Patient has been seen and examined on the floor she was sitting in the bed comfortable with her at the bedside General -patient is awake alert oriented ?3, does not appear to be in distress HEENT -normal oropharyngeal mucosa without any ulcers or exudates Cardiovascular -S1 plus S2, with regular rate, without any murmurs, gallops, rubs Pulmonary -clear to auscultation bilaterally Gastrointestinal -abdomen is soft, nondistended, nontender, bowel sounds positive, no rigidity, no rebound Genitourinary -no flank tenderness Musculoskeletal -no back tenderness, no significant joint swelling, full range of motion Neurological -no facial asymmetry noted, pupils are equal and symmetrical, extraocular muscle intact, no nystagmus, motor function 5 out of 5 in upper and lower extremities, sensation 5 out of 5 in upper and lower extremities, finger to nose test performed well without any dysmetria, reflexes symmetrical bilaterally in lower extremities, speech is clear, no tremors noted, gait deferred Skin -no significant ulcers, no rash noted Extremities - no edema in bilateral lower extremities noted Psychiatry - appropriate affect Laboratory work up, imaging studies reviewed EKG personally reviewed by me as mentioned above Previous records in the computer system reviewed A&P - Hospitalist Assessment/Plan (1) Chest pain: Plan 1. Chest pain with abnormal troponins, questionable unstable angina On July 20 stress test was noted to be abnormal For now continue with aspirin, will give 1 dose of therapeutic Lovenox Repeated EKG showed T wave inversions in lateral leads I and aVL Continue with telemetry, serial troponins, add nitroglycerin, echocardiogram Cardiology consult 2 Recently diagnosed hypertension continue with home medications. 3. DVT prophylaxis 4. Tingling in the right upper and lower extremity, resolved CT scan of the head without acute findings, we will get carotid duplex ultrasound Continue with telemetry, EKG normal sinus Documented By: Jade Vidal MD 08/04/22 1800 Signed By: <Electronically signed by Jade Vidal MD> 08/04/22 7836 [facility] Work Phone: Evaluation note* Diagnosis Onset Date Resolution Status Abnormal stress test acute Acute coronary syndrome acut e Chest pain acute Essential hypertension acute Hyperlipidemia acute Orthostatic hypotension acut e Unstable angina acute [facility] Work Phone: Evaluation note* Diagnosis Coronary artery disease involving holy cross coronary artery 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 Comorbid Illnesses: hypertension and hyperlipidemia. * Symptoms: denies chest pain at rest, resolved exertional chest pain, denies dyspnea, improved fatigue, improved exercise intolerance, denies palpitations, denies edema, denies orthopnea, denies dizziness and denies orthostatic dizziness. * Associated symptoms: no syncope. * Her symptoms do not limit her activities. * Disease Monitoring: The patient has had a stable weight. * Medications: the patient is adherent with her medication regimen. She denies medication side effects. [facility] 250 DO Work Phone: History of Present illness NarrativePatient returns in follow-up of problems as noted. She done well. She has none of the symptoms of coronary disease that preceded her diagnosis and subsequent intervention in July. She is active and participates in cardiac rehab with no angina or dyspnea. Management of lipids and hypertension isreviewed and control is acceptable. Because of all the above we suggest continued therapy as is. Wedid advocate diet and weight loss.[facility] 250 DO Work Phone: InstructionsNot on filedocumented in this encounter [facility] uiu SystemInstructionsNot on filedocumented in this encounter [facility] System[facility] for referral (narrative)* Consultation (Routine) - Authorized Specialty Diagnoses / Procedures Referred By Elilott t Referred To Contact Cardiology Diagnoses Coronary artery disease involving holy cross coronary artery of holy cross heart without angina pectoris Hypertension, benign Mixed hyperlipidemia History of PTCA Procedures Follow Up In Cardiology Kadeem Harrell MD [address] [facility] 2, [address] [address] Kadeem Harrell MD [address] [place] [address] Referral ID Status Reason Start Date Expiration Date V isits Requested Visits Authorized [id number] Authorized 07/16/2023 07/15/2024 1 1 [facility] Work Phone: Chief Complaint and Reason for Visit Chief Complaint Chest Pain Reason for Visit Abnormal stress test Acute coronary syndrome Chest pain Essential hypertension Hyperlipidemia Orthostatic hypotension Unstable angina Advance Directives Advance Directive Response Recorded Date/ Time Advance Directives No July 3:30pm Summary Purpose Family History Unknown Family Member Name Dates Details Family history of malignant neoplasm: Mother, Father(V16.9, Z80.9) Status:Active Heart problem: Father Status:Active Unknown Family Member Name Dates Details Family history of malignant neoplasm: Mother, Father(V16.9, Z80.9) Status:Active Heart problem: Father Status:Active Chief Complaint Hospital f/u: 'feeling better each day'TESSIE SANTOS is being seen for a 3 month follow-up of. Additional Source Comments Care Teams (unrecognized sec tion and content) Team Status: Inactive Member Role Status Dates Lorena Mcknight MD Primary Care Provider Active Jade Vidal MD Admit Provider Active Jaylene Aguilar DO Attending Provider Active Team Status: Active Member Role Status Dates Lorena Mcknight MD Primary Care Provider Active [employer] Relationship Specialty Start Date End Date Lorena Mcknight MD [address] [facility] [place] [address] PCP - General 08/22/22 [employer]ricator Welder Relationship Specialty Start Date End Date Lorena Mcknight MD [address] [place] [address] PCP - General Family Medicine 05/18/22 [employer] Fabricator Welder Relationship Specialty Start Date End Date Lorena Mcknight MD [address] [place] [address] PCP - General Family Medicine 05/18/22 INFORMATION SOURCE (unrecogn ized section and content) DATE CREATED AUTHOR 08/22/2022 [facility] DATE CREATED AUTHOR AUTHOR'S ORGANIZ ATION 09/23/2022 [facility] DATE CREATED AUTHOR AUTHOR'S ORGANIZ ATION 11/21/2022 [facility] DATE CREATED AUTHOR AUTHOR'S ORGANIZ ATION 07/17/2023 [facility] Ambulatory Reason for Visit (unrecogniz ed section and content) Reason Comments Follow-up 6m Reason Comments Med Refill Reason Onset Date Comments Med Refill 10/24/2023 FOR RECORDS PERTAINING TO PATIENTS WHO ARE OR HAVE BEEN ENROLLED IN A CHEMICAL DEPENDENCY/SUBSTANCEABUSE PROGRAM, SOME INFORMATION MAY BE OMITTED. This clinical summary was aggregated from multiple sources. Caution should be exercised in using it in the provision of clinical care. This summary normalizes information from multiple sources, and as a consequence, information in this document may materially change the coding, format and clinical context of patient data. In addition, data may be omitted in some cases. CLINICAL DECISIONS SHOULD BE BASED ON THE PRIMARY CLINICAL RECORDS. [employer] provides no warranty or guarantee of the accuracy or completeness of information in this document.
--- NOTE | 2023-11-12 10:19 | MM_ITS ---
Patient Name: BHARAT AU MR#: [id number] : 1960 Exam Date: 11/12/2023 Ordering Doctor: DR EDGAR TAO RADIOLOGY REPORT PROCEDURE: MM TOMOSYNTHESIS SCREENING BI COMPARISON: None. INDICATIONS: Screening Calculator Name NCI Breast Cancer Risk Assessment Tool 5 Year Breast Cancer Risk 1.80% Lifetime Breast Cancer Risk 8.60% Personal Breast Cancer No Personal Ovarian Cancer No Treatments None Family Cancers Grandmother-maternal with breast cancer at age 58; Father with prostate cancer at age 62; Mother with bone cancer at age 82. LOCATION: [facility] BREAST COMPOSITION: Scattered areas fibroglandular density. FINDINGS: DIAGNOSTIC CATEGORY 2--BENIGN FINDING. NO CHANGE FROM COMPARISON. Scattered benign-appearing calcifications are present. Scattered benign-appearing lymph nodes are present. RIGHT BREAST: No significant suspicious finding. LEFT BREAST: No significant suspicious finding. RECOMMENDATIONS: ROUTINE MAMMOGRAM AND CLINICAL EVALUATION IN 12 MONTHS. PLEASE NOTE: A NORMAL MAMMOGRAM DOES NOT EXCLUDE THE POSSIBILITY OF BREAST CANCER. A CLINICALLY SUSPICIOUS PALPABLE LUMP SHOULD BE BIOPSIED. Dictated by: Edgar Jones MD on 11/12/2023 at 11:08 Approved by: Edgar Jones MD on 11/12/2023 at 11:09
== END 2023-11-12 10:16 | disposition home or self-care (01) ==
LOC: MAMMO 10:15
PROVIDERS: Visit Provider Family Medicine
DX: Z12.31 Encounter for screening mammogram for malignant neoplasm of breast (principal); Z80.3 Family history of malignant neoplasm of breast; Z80.42 Family history of malignant neoplasm of prostate; Z80.8 Family history of malignant neoplasm of other organs or systems
CPT/HCPCS: 77063; 77067